=== PATIENT | female | born 1935 | race Caucasian/White ===

== ENCOUNTER 2019-02-11 12:22 | Inpatient (IN) | payer MEDICARE, OTHER ==
[~2019-02-11] VITALS: Ht 154.9 cm; Wt 63.5 kg
[~2019-02-11 12:22] MED LIST: AMARYL2 MG PO; DICYCLOMINE HCL20 MG; HYDROCODON-ACE1 EAC7 PO; LASIX 40 MG TAB40 M2; LISINOPRIL40 MG PO; METFORMIN HCL500 MG; PRAVASTATIN SOD40 MG PO; SYNTHROID100 MC1 PO; XANAX 0.5 MG0.5 MG
[2019-02-11 12:23] VITALS: BP 146/64
[2019-02-11 12:47] LABS: ABSOLUTE BASOPHILS 0.1 thou/uL (0.0-0.2); ABSOLUTE EOSINOPHILS 0.2 thou/uL (0.0-0.7); ABSOLUTE MONOCYTES 0.8 thou/uL (0.0-1.2); BASOPHILS 0.8 %; EOSINOPHILS 1.7 %; HEMATOCRIT 34.7 % (37.0-47.0); HEMOGLOBIN 11.5 gm/dL (12.0-15.0); MCH 28.7 pg (26.0-34.0); MCHC 33.2 g/dL (28.0-37.0); MCV 86.2 fL (80.0-100.0); MPV 8.6 fl. (7.2-11.1); NUCLEATED RBCS 0 /100WBC; PLATELET COUNT* 287 thou/uL (150-400); POLYS 69.5 %; RBC 4.03 mil/uL (4.20-5.00); RDW-CV 14.9 % (10.5-14.5)
[2019-02-11 12:56] LABS: ANION GAP 8 mmol/L (7-16); BUN 24 mg/dL (7-18); CALCIUM 9.4 mg/dL (8.5-10.1); CHLORIDE 98 mmol/L (98-107); CO2 28 mmol/L (21-32); CREATININE 0.9 mg/dL (0.6-1.3); GLUCOSE 167 mg/dL (70-99); POTASSIUM 4.1 mmol/L (3.5-5.1); SODIUM 134 mmol/L (136-145)
[2019-02-11 13:06] LABS: ALBUMIN 3.6 g/dL (3.4-5.0); ALKALINE PHOSPHATASE 80 U/L (46-116); SGOT 18 U/L (15-37); SGPT 20 U/L (30-65); TOTAL BILIRUBIN 0.3 mg/dL (<0.1-1.0); TROPONIN-I LEVEL <0.06 ng/mL (<0.06)
[2019-02-11 15:15] VITALS: BP 147/45
[2019-02-11 15:38] VITALS: BP 147/46
--- NOTE | 2019-02-11 16:35 | NUR ---
PATIENT CAME TO THE FLOOR FROM THE ER VIA CART IN STABLE CONDITION. SLID PATIENT FROM ER CART TO BED. ROOM ORIENTATION AND ADMISSION ASSESSMENT DONE. FAMILY AT BEDSIDE. PATIENT WENT TO CT THEN WAS OING TO GO TO THE OPERATING ROOM FROM CT. TRANSPORTED WITH [employer] EXAMINER AND SURGEON. FAMILY IS WITH PATIENT.
--- NOTE | 2019-02-11 16:42 | EKG ---
[place] [address] ELECTROCARDIOGRAM REPORT Name: NAVDEEP ARVIZU Room: [address] ADM IN .R.#: [id number] Admission: 02/11/19 Attend Phys: Dino Patel Discharge: Date of : 39 Report #: [id number] THIS REPORT FOR: //name// [facility] ED Test Date: 2019-02-11 Test Time: 12:35:40 Pat Name: NAVDEEP ARVIZU Department: Room: [facility] Gender: F Plan Nurse: MS : 1935 Requested By: Ezequiel Mendoza Order Number: [id number] MD: Roni Renae Measurements Intervals [place] Rate: 74 P: 75 MO: 237 QRS: -34 QRSD: 100 T: 111 QT: 437 QTc: 485 Interpretive Statements Sinus rhythm Prolonged MO interval Left axis deviation Abnormal R-wave progression, early transition Probable septal infarct, old Abnormal T, consider ischemia, lateral leads Compared to ECG 12/26/2013 11:07:31 First degree AV block now present Left-axis deviation now present Sinus arrhythmia no longer present Myocardial infarct finding still present Electronically Signed On 02-11-2019 16:42:09 CDT by Roni Renae [email or web address] <ELECTRONICALLY SIGNED> By: Roni Renae MD, [facility] 02/11/19 1642 1235 1235 Roni Renae MD, [facility] /EPI
[2019-02-11 16:58] LABS: PROTIME 10.3 Seconds (9.20-11.50)
--- NOTE | 2019-02-11 17:49 | NUR ---
PATIENT IS STILL OFF THE FLOOR IN THE OR.
[2019-02-11 20:10] VITALS: BP 156/67
--- NOTE | 2019-02-11 22:15 | NUR ---
PT TRANSFERED FROM PACU AT 2009. VITALS STABLE. ON 3L OF OXYGEN BY NC. ON CONTINUOUS SAT MONITOR. FAMILY AT BEDSIDE. WILL CONTINUE TO MONITOR.
[2019-02-12] VITALS: BP 129/62
[2019-02-12 04:10] LABS: HEMATOCRIT 27.3 % (37.0-47.0)
[2019-02-12 04:26] VITALS: BP 142/57
--- NOTE | 2019-02-12 05:36 | NUR ---
PT REMAINED ALERT AND ORIENTED. VITALS STABLE WITH 3L O2 BY NC. PAIN CONTROLLED WITH OXY IR. NAUSEA RESOLVED AFTER IV ZOFRAN GIVEN. DRESSING ON LT HIP CLEAN AND DRY. IV ANTIBIOTIC GIVEN. ICE PACK, JADE IN PLACE. HOURLY ROUNDING COMPLETED. WILL CONTINUE TO MONITOR.
[2019-02-12 07:30] VITALS: BP 138/54
--- NOTE | 2019-02-12 14:21 | NUR ---
SW met with pt and with pt dtr Lisa to complete initial assessment, introduce self, and SW role. Pt was alert, oriented, pleasant. Pt lives at home with . Pt dtr Lisa lives in [place] and pt has another dtr who lives in [place], [place]. Pt dtr explained that pt is also 83 and that "they do okay" but to be determined whether pt will need SNF or inpt rehab at dc. Pt open to the options if needed and also to HH at dc. (Pt does not have hx with HH and pt does but they do not recall the name of the agency.) Pt has RW, cane, BSC, Shower chair and a tub/shower bench. Pt has a ranch style home with just 2 steps to enter and the steps from the garage into the home is where pt fell. Pt dtr aware pt will dc on Eliquis at least for a couple of weeks. SW/CM to continue to follow to assist with safe dc planning.
[2019-02-12 16:30] VITALS: BP 143/54
--- NOTE | 2019-02-12 18:03 | NUR ---
TKO BRACE ORDERED FROM [employer]. WILL BE DELIVERED THURSDAY. THEY WILL CALL THE UNIT TO CONFIRM
--- NOTE | 2019-02-12 19:00 | NUR ---
PATIENT PLEASANT AND COOPERATIVE W/ ASSESS AND CARES. PATIENT STATES FEELING NAUSEOUS THIS AM, SEE MAR. PATIENT DENIES NAUSEA THRU REST OF SHIFT. THERAPIES WORK WITH PATIENT THIS SHIFT. PATIENT C/O PAIN IN LEFT FOOT, NOTED BRUISING, PATIENT/FAMILY STATES WAS NOT PRESENT AT TIME OF FALL, DR NOTIFIED, XRAY ORDER OBTAINED. NOTED BRUISING TO RIGHT HAND, PATIENT STATES 4TH FINGER PAINFUL. FINGER ANGEL TAPED TO LIMIT BENDING. PATIENT STATES THIS HELPS. SEE MAR FOR PAIN CONTROL. PATIENT TRANSFERS USING FWW/GAIT BELT W/ SBA. FAMILY MEMBERS PRESENT IN RM THRU SHIFT. EDUCATED ON POC, INC SPIR, CDB AND MEDICATION CHANGES. PATIENT STATES VERBALLY OF UNDERSTANDING. USING INC SPIR. LT HIP DRSG NOTED WNL, CDI. ~STEVENRXiao
[2019-02-12 20:00] VITALS: BP 143/59
[2019-02-13] VITALS: BP 150/60
[2019-02-13 04:00] VITALS: BP 135/47
--- NOTE | 2019-02-13 04:53 | NUR ---
PATIENT HAS REMAINED ALERT AND ORIENTED X 4 THROUGHOUT THE SHIFT AND RESTING QUIETLY ON HOURLY ROUNDS. Q2H TURNS ENCOURAGED. DRESSING LEFT HIP CLEAN AND DRY. ICE PACK PROVIDED. MEDICATED FOR PAIN Q6H WITH SCHEDULED HYDROCODONE. PATIENT HAS OPTED TO TAKE ONLY 1/2 TAB EACH TIME. ADEQUATE ORAL INTAKE AND URINE OUTPUT. O2 RE-APPLIED AT HS FOR O2 SAT 88-90% ON ROOM AIR. FURTHER CHECKS ON 2L/MIN 93-95%. OTHER VITAL SIGNS STABLE. ORTHO TO REVIEW LEFT FOOT XRAYS IN AM WHICH DOES SHOW THIRD FIFTH METETARSAL FX OF INDETERMINATE AGE. DAUGHTER AT BEDSIDE. CONTINUE TO MONITOR.
[2019-02-13] MEDS ORDERED: AMLODIPINE BESY10 MG PO (06:51)
[2019-02-13] MEDS ORDERED: PROBIOTIC1 EAC1 PO (06:52)
[2019-02-13] MEDS ORDERED: OMEPRAZOLE 20 M20 M1 PO (06:55)
[2019-02-13] MEDS ORDERED: PIOGLITAZONE15 MG PO (06:56)
[2019-02-13] MEDS ORDERED: ATIVAN0.5 MG PO (06:57)
[2019-02-13 07:55] VITALS: BP 124/61
[2019-02-13 17:04] VITALS: BP 116/48
--- NOTE | 2019-02-13 18:44 | NUR ---
PLEASANT AND COOPERATIVE THRU SHIFT. FAMILY MEMBERS PRESENT IN THRU MOST OF SHIFT. SEE MAR FOR MED INTERVENTION. PATIENT TOOK OFF HAND BRACE STATING THAT IT WAS TOO UNCOMFORTABLE, DR IN THIS MORNING FROM ORTHO GROUP, ANGEL TAPED PATIENT FINGERS TOGETHER W/ PATIENT AGREEMENT. BOOT PLACED TO LEFT FOOT. PATIENT INSTRUCTED BY ORTHO DR ON USE OF BOOT. PATIENT STATES VERBALLY OF UNDERSTANDING. USING FWW AND GAIT BELT, SBA W/ TRANSFERS AND AMBULATION. PATIENT NOTED HAVING DIFF W/ LLE. BM TODAY. IV CATH SITE NOTED WNL. CALL LIGHT IN REACH. HRLY ROUNDS COMPLETED. ~TJRN
[2019-02-13 20:00] VITALS: BP 147/50
[2019-02-14] VITALS: BP 172/65
[2019-02-14 02:55] VITALS: BP 157/55
--- NOTE | 2019-02-14 05:20 | NUR ---
PATIENT HAS REMAINED ALERT AND ORIENTED X 4 THROUGHOUT THE SHIFT AND RESTING QUIETLY ON HOURLY ROUNDS. MEDICATED FOR PAIN X 2 TO GOOD EFFECT. DRESSING LEFT HIP CLEAN AND DRY. REFUSED ICE PACK. JAHAIRA PASQUALEE AND SCD'S ON BILAT LE'S. REFUSED SEVERAL Q2H TURNS. DID GET UP OUT OF BED X 2 TO BSC FOR VOIDS. ABLE TO MAKE SMALL ADJUSTMENTS BY SELF. USING GAIT BELT PER PT INSTRUCTION TO ASSIST MOVING LLE FROM SUPINE TO SITTING POSITION. ACROSS BED. MIN ASSIST WITH WALKER, GAIT BELT AND POST-OP SHOE TO L FOOT TO COMMODE. VITAL SIGNS STABLE. CONTINUE TO MONITOR.
[2019-02-14 07:55] VITALS: BP 156/66
[2019-02-14 09:25] LABS: ABSOLUTE BASOPHILS 0.1 thou/uL (0.0-0.2); ABSOLUTE EOSINOPHILS 0.1 thou/uL (0.0-0.7); ABSOLUTE LYMPHOCYTES 1.2 thou/uL (0.8-5.3); ABSOLUTE NEUTROPHILS 7.7 thou/uL (1.6-8.1); BASOPHILS 0.5 %; EOSINOPHILS 0.5 %; HEMATOCRIT 27.7 % (37.0-47.0); HEMOGLOBIN 9.2 gm/dL (12.0-15.0); LYMPHOCYTES 12.5 %; MCH 28.7 pg (26.0-34.0); MCHC 33.2 g/dL (28.0-37.0); MCV 86.6 fL (80.0-100.0); MONOCYTES 9.5 %; MPV 8.8 fl. (7.2-11.1); NUCLEATED RBCS 0 /100WBC; PLATELET COUNT* 252 thou/uL (150-400); RDW-CV 14.5 % (10.5-14.5)
[2019-02-14 10:31] LABS: CALCIUM 9.1 mg/dL (8.5-10.1); POTASSIUM 4.1 mmol/L (3.5-5.1)
--- NOTE | 2019-02-14 14:27 | NUR ---
PATIENT IS ALERT AND ORIENTED TODAY VERY PLEASANT. VITAL SIGNS STABLE ON ROOM AIR. SOME COMPLAINTS OF PAIN THAT IS WELL CONTROLLED WITH ORAL PAIN MEDICATIONS. UP WITH WALKER AND GAIT BELT TO BEDSIDE COMMODE, TOERATING THERAPY WELL. WILL PASS ON REPORT TO NEXT NURSE AND CONTIMUE TO MONITOR.
--- NOTE | 2019-02-14 16:37 | NUR ---
AWAITNG 'S VISIT. DISCUSSED WITH PT.PLAN B. IF DOES NOT FEEL SHE WOULOD BE A GOOD REHAB CADIDATE, SHE WOULD NEED TO GO TO SNF. GAVE HER PAMPHLET OF SNFS IN [place]. SHE WILL LOOK AT IT AND WANTS TO TALK WITH HER FAMILY. TOLD HER SHE COULD POSSIBLY BE DISCHARGED TOMORROW EITHER TO [facility] OR SNF.
--- NOTE | 2019-02-14 18:19 | NUR ---
ASSUMED CARE OF PATIENT AT 1515. PATIENT RESTING IN BED. PATIENT IS UP WITH MINIMAL ASSIST WITH WALKER/GAITBELT FOR TRANSFER. PATIENT HAS HAD COMPLAINTS OF PAIN, TREATED ADEQUATELY WITH HYDROCODONE. PATIENT HAS GOOD APPETITE. PATIENT DENIES ANY NEEDS AT THIS TIME. CALL LIGHT WITHIN REACH. WILL CONTINUE TO MONITOR.
[2019-02-14 19:35] VITALS: BP 170/56
[2019-02-14 21:10] VITALS: BP 138/54
--- NOTE | 2019-02-15 05:35 | NUR ---
PT REMAINED ALERT AND ORIENTED. VITALS STABLE RA. MEDS GIVEN ORDERED. PAIN CONTROLLED WITH 1/2 TAB OF HYDROCODONE PT REQUESTED. NO NAUSEA OR VOMING THIS SHIFT. DRESSING ON LT HIP CLEAN AND DRY. PT UP TO THE COMMODE WITH WALKER AND GAITBELT. HOURLY ROUNDING COMPLETED. WILL CONTINUE TO MONITOR.
[2019-02-15 08:00] VITALS: BP 152/49
[2019-02-15 10:48] VITALS: BP 152/49
--- NOTE | 2019-02-15 14:08 | PATH ---
[address] [address] PATHOLOGY RPT PROCEDURE Name: NAVDEEP ARVIZU Room: [facility] IN .R.#: [id number] Admission: 02/11/19 Date of : 39 Discharge: Report #: [id number] Path Case #: [id number] [facility] Accession Number: [id number] . 01 Material submitted: . femur - LEFT FEMUR BONE REAMINGS. Modifiers: left . 01 Clinical history: . Left convoluted intertrochanteric, subtrochanteric fracture . 02 Diagnosis: Femur bone reamings: - Fragments of benign and viable bone, marrow fat/stroma, skeletal muscle, cartilage and fibrous connective tissue. (MALINDA:pit 02/15/2019) QTP/02/15/2019 . 02 Electronically signed: . Sanjeev Booker MD, Pathologist NPI- [id number] . 01 Gross description: . Received in formalin labeled "Arvizu, Navdeep, femur bone reamings," and additionally labeled on the requisition as, "left convoluted infratrochanteric, subtrochanteric fracture," is a 4.2 x 2.3 x 0.5 cm aggregate of granular, desouza-brown bone fragments. The specimen is submitted representatively in cassette A1, following decalcification. (DAC; 02/14/2019) XDC/XDC . 02 Pathologist provided ICD-10: S72.102A . 02 CPT . 313946, [id number] Specimen Comment: A courtesy copy of this report has been sent to Specimen Comment: [phone], , . Specimen Comment: Report sent to ,DR TAYLOR / DR WALTON Performed at: 01 [facility] [address] [place] [address] [address], [place], [place] [id number] MD Keo Dhaliwal MD Phone: [phone] Performed at: [address] [facility] [address], [place], [place] [id number] MD Sanjeev Booker MD Phone: [phone]
--- NOTE | 2019-02-15 15:16 | NUR ---
NOTIFIED BY [facility] THAT THEY CAN ACCEPT PT.TODAY TO REHAB UNIT. CM NOTIFIED DAV[facility] AND PT. NURSING TO FAX ORDERS AND MED REQ WHEN COMPLETE.
[2019-02-15] MEDS ORDERED: TYLENOL325 MG PO (15:37)
[2019-02-15] MEDS ORDERED: AMBIEN 5 MG TABL5 M1 PO (15:38)
[2019-02-15] MEDS ORDERED: DULCOLAX5 MG PO (15:39)
[2019-02-15] MEDS ORDERED: BENADRYL25 MG PO (15:40)
[2019-02-15] MEDS ORDERED: ELIQUIS2.5 MG PO (15:42)
[2019-02-15] MEDS ORDERED: MELATONIN5 M1 PO (15:44)
[2019-02-15] MEDS ORDERED: MILK OF MA400 MG/5 M PO (15:46)
[2019-02-15] MEDS ORDERED: PHENERGAN 25 MG25 MG PO (15:53)
[2019-02-15] MEDS ORDERED: ONDANSETRON HCL4 M2 PO (15:54)
[2019-02-15] MEDS ORDERED: MAG-AL PLUS SUS30 ML PO (15:59)
--- NOTE | 2019-02-15 18:29 | NUR ---
AM ASSESSMENT AND VITAL SIGNS COMPLETED DOCUMENTED. PT HAS WORKED WITH PT AND OT, AMBULATES WITH A WALKER ANDMIN ASSIST. PAIN HAS BEEN WELL MANAGED WITH ORAL MEDICATIONS. DRESSING TO THE LEFT HIP REMAINS C/D/I. PT HAS BEEN ACCEPTED TO THE INPATIENT REHAB UNIT. PT AND HER BELONGINGS TRANSPORTED TO ROOM 324 AND SHE HAS BEEN DISCHARGED FROM [facility].
--- NOTE | 2019-02-16 12:44 | OP ---
[address] [address] OPERATIVE REPORT Name: NAVDEEP ARVIZU Room: [address] IN M.R.#: [id number] Admission: 02/11/19 Attend Phys: Dino Patel Discharge: 02/15/19 Date of : 39 Report #: [id number] THIS REPORT FOR: //name// CC: Prema Rodriguez DATE OF SERVICE: 02/11/[address] Paulette Membreno dictating an operative report for Dr. Chapito Mckeon. PREOPERATIVE DIAGNOSIS: Left comminuted displaced closed intertrochanteric femur fracture. POSTOPERATIVE DIAGNOSIS: Left comminuted displaced closed intertrochanteric femur fracture. SURGEON: Chapito Mckeon DO TROUBLE LOCATER: Paulette Membreno DO and Ankur Quintanilla DO. PROCEDURE PERFORMED: Open reduction and internal fixation of left hip fracture with long cephalomedullary nail. ANESTHESIA: General and local. ESTIMATED BLOOD LOSS: 250 mL. SPECIMENS REMOVED: Femoral canal reaming sent to pathology. COMPLICATIONS: None. DISPOSITION: Stable to PACU. ORTHOPEDIC IMPLANTS: Angela gamma nail 11 x 340, then 35 and 40 mm distal interlock screws and 90 mm lag screw. INDICATION FOR PROCEDURE: The patient is a pleasant 83-year-old female who unfortunately suffered a ground level fall earlier today, resulting in immediate left hip pain and inability to bear weight on her left lower extremity. She presented to [facility] ED via EMS and imaging revealed a left comminuted displaced closed intertrochanteric femur fracture. We recommended open reduction and internal fixation of her left hip fracture with a long cephalomedullary nail. All the risks, benefits, complications and alternatives of surgery were discussed with the patient and her family and they wished to [place] [address] OPERATIVE REPORT Name: ARVIZUNAVDEEPEDDI ADEN Room: [address]#: [id number] Admission: 02/11/19 Attend Phys: Dino Patel Discharge: 02/15/19 Date of : 39 Report #: [id number] DESCRIPTION OF PROCEDURE: The patient was seen in the preoperative suite. Consent was obtained. One gram of IV Ancef was administered. The operative site was marked and everyone in the preop suite agreed this was the correct site. She was transported to the operative suite and given the benefit of general anesthesia. She was then transferred to a well-padded Drewsey table in the supine position. Her left foot and ankle were wrapped in soft roll and then her left foot was placed in a well-padded Drewsey traction boot and connected to the Drewsey table. Her right lower extremity was then carefully flexed and abducted and placed in a well-padded leg cazares. Attention was then turned to preoperative reduction of her fracture. The left lower extremity was internally rotated and traction was applied. C-arm was utilized to confirm reduction of her fracture on both AP and lateral imaging. The left lower extremity was then prepped and draped in the typical sterile fashion. A timeout was performed to confirm the correct patient, operative site and procedure. Everyone in the operative suite agreed. The greater trochanter and axis of the femur were marked out. A 3 cm incision was then made just proximal to the tip of the greater trochanter over the lateral aspect of the hip through skin and IT band. A guidewire was then utilized to find the starting point at the tip of the greater trochanter that was confirmed by AP and lateral C-arm imaging. A starting awl was then taken down to the level of the lesser trochanter. A ball-tipped guidewire was then passed down through the awl to the level of the knee that was confirmed to be in the femoral canal via C-arm imaging. Once the ball tip guidewire was confirmed to be in appropriate position, the awl was removed and a size 11 reamer on power was then used as a starting reamer. We sequentially reamed up to a 13. Reamings were collected and sent to pathology for further analysis. A starting reamer 15.5 was then taken down to the level of the lesser trochanter. The nail, 11 x 340 was then passed over the ball tip guidewire and assessed to be in correct position by AP and lateral C-arm imaging. Our attention was then turned to lag screw placement. The triple sleeve was placed through the 125 degree lag screw portal and the guide. A 2 cm incision was made through skin and IT band. A new triple sleeve was advanced to bone. A guidewire on power was advanced into the correct position in the femoral head and confirmed with C-arm AP and lateral imaging. Measuring guide was used and a 90 mm lag screw was deemed appropriate. The drill on power was set to 90 mm and drilled over the guidewire. The 90 mm lag screw was then placed using a hand screwdriver and confirmed to be in appropriate position via fluoroscopic imaging, the set screw was then inserted, tightened and loosened a quarter turn. Compression was then achieved with a lag screw sleeve and confirmed by imaging. The triple sleeve and nail guide were then removed. Our attention was then turned to the distal interlocks. The C-arm was utilized to visualize perfect circles. A 2 cm incision was made at the level of the distal interlocks through skin and IT band. A drill on power was used to drill [facility] [address] [place] [address] OPERATIVE REPORT Name: NAVDEEP ARVIZU Room: [address] IN .R.#: [id number] Admission: 02/11/19 Attend Phys: Dino Patel Discharge: 02/15/19 Date of : 39 Report #: [id number] the interlock screw holes, confirmed to be through the nail with C-arm imaging. A depth gauge was used and 35 and 40 mm screws were deemed appropriate for the distal interlocks. The screws were placed on power and finished with a hand screwdriver. AP and lateral fluoroscopic images confirmed the screws to be in the appropriate position and length. Final fluoroscopic images were obtained confirming all the hardware to be in appropriate position and alignment and confirmed no retained orthopedic instruments. The incisions were thoroughly irrigated with sterile water. The IT band was closed with 1-0 Vicryl. Subcutaneous tissues were closed with 2-0 Vicryl and the skin was then stapled. A 30 mL of orthopedic cocktail were injected. Skin was cleaned with wet and dry laps and dressed with Mepilex. All counts were correct x 2. The patient was awoken from general anesthesia and transported to the PACU in stable condition. The patient will be given 2 more doses of IV Ancef 1 gram q.8h. postoperatively. She will receive anticoagulation, both mechanical and pharmacological while admitted. She will be weightbear as tolerated to her left lower extremity. She will continue Eliquis 2.5 mg b.i.d. for 2 weeks and then transition to aspirin 325 mg b.i.d. for 4 weeks. [place] will be removed at 14 days and the patient will follow up with Dr. Mckeon in clinic in 2 weeks. <ELECTRONICALLY SIGNED> By: Leonidas Martines DO 02/16/19 1244 0810 1028Chapito Mckeon DO /kirsten
== END 2019-02-15 17:50 | DRG 481 ==
LOC: M.ERS 12:22 → M.ORTHSURG 14:09 → M.TBA-ER 14:09 → M.ORTHSURG 16:04
PROVIDERS: Emergency Medicine Emergency Medical Services; Orthopaedic Surgery; ADMIT Internal Medicine
PROC: 0QS704Z Reposition Left Upper Femur with Internal Fixation Device, Open Approach (ICD-10-PCS; principal; 2019-02-11)
DX: S72.142A Displaced intertrochanteric fracture of left femur, initial encounter for closed fracture (principal); D62 Acute posthemorrhagic anemia; E11.9 Type 2 diabetes mellitus without complications; I10 Essential (primary) hypertension; S92.352A Displaced fracture of fifth metatarsal bone, left foot, initial encounter for closed fracture; S92.332A Displaced fracture of third metatarsal bone, left foot, initial encounter for closed fracture; S62.645A Nondisplaced fracture of proximal phalanx of left ring finger, initial encounter for closed fracture; I95.9 Hypotension, unspecified; E78.00 Pure hypercholesterolemia, unspecified; E03.9 Hypothyroidism, unspecified; W18.39XA Other fall on same level, initial encounter; Y93.01 Activity, walking, marching and hiking; Y92.59 Other trade areas as the place of occurrence of the external cause; Y99.8 Other external cause status; Z90.49 Acquired absence of other specified parts of digestive tract; Z88.1 Allergy status to other antibiotic agents; Z88.8 Allergy status to other drugs, medicaments and biological substances

== ENCOUNTER 2019-02-15 16:01 | Inpatient (IN) | payer MEDICARE, OTHER ==
[~2019-02-15] VITALS: Ht 154.9 cm; Wt 59.9 kg
[~2019-02-15 16:01] MED LIST changes: +AMBIEN 5 MG TABL5 M1 PO; +AMLODIPINE BESY10 MG PO; +ATIVAN0.5 MG PO; +BENADRYL25 MG PO; +DULCOLAX5 MG PO; +ELIQUIS2.5 MG PO; +MAG-AL PLUS SUS30 ML PO; +MELATONIN5 M1 PO; +MILK OF MA400 MG/5 M PO; +OMEPRAZOLE 20 M20 M1 PO; +ONDANSETRON HCL4 M2 PO; +PHENERGAN 25 MG25 MG PO; +PIOGLITAZONE15 MG PO; +PROBIOTIC1 EAC1 PO; +TYLENOL325 MG PO
[2019-02-15 19:00] VITALS: BP 151/59
[2019-02-15 20:00] VITALS: BP 151/59
--- NOTE | 2019-02-16 05:09 | NUR ---
ASSUMED PT CARE AT 1930. PT ALERT AND ORIENTED X4, POLITE AND COOPERATIVE WITH CARES. ADMISSION DATABASES AND PAPERWORK COMPLETED. UP TO BATHROOM WITH SBA, GAIT BELT AND WALKER. PT WEARS ORTHO SHOE TO LEFT FOOT WHEN AMBULATING. STOOL X2 THIS SHIFT. DRESSING TO LEFT HIP C/D/I. TEGADERM TO SKIN TEAR ON LEFT HAND INTACT. PAIN MEDICATION ONCE THIS SHIFT. USES CALL LIGHT APPROPRIATELY. HOURLY ROUNDING IN PROGRESS, WILL CONTINUE TO MONITOR.
[2019-02-16 05:39] LABS: HEMOGLOBIN 8.6 gm/dL (12.0-15.0); MCH 29.5 pg (26.0-34.0); MCHC 34.3 g/dL (28.0-37.0); MPV 9.1 fl. (7.2-11.1); RBC 2.9 mil/uL (4.20-5.00); RDW-CV 14.4 % (10.5-14.5); WBC 9.4 thou/uL (4.0-11.0)
[2019-02-16 06:09] LABS: CREATININE 0.8 mg/dL (0.6-1.3); POTASSIUM 4.3 mmol/L (3.5-5.1)
[2019-02-16 09:05] VITALS: BP 144/72
--- NOTE | 2019-02-16 12:59 | NUR ---
Nutrition: Pt admitted to rehab with Lt hip FX. Wt: 131#. Eating regular diet well. H/o DM, HTN. BG is elevated 251. Albumin 3.6. RX: metformin, glimeperide. GOAL: better BG control. RD will restrict diet to CHO controlled. Will follow weekly.
--- NOTE | 2019-02-16 13:33 | NUR ---
PATIENT UP WITH ASSIST. AMBULATES WITH ROLLING WALKER. DENIES COMPLAINTS OR PAIN OR DISCOMFORT. CONT. WITH PLAN OF CARE.
--- NOTE | 2019-02-16 16:22 | NUR ---
SW completed initial assessment on inpt rehab unit. Pt alert, oriented, pleasant. Pt known to SW from pt stay on acute care. Pt lives at home with . Pt has supportive dtrs. Pt has RW, sangeethae, BSC, shower chair, shower tub bench. Pt lives in a ranch style home with 2 steps to enter. Pt might be on Eliquis at dc. SW to continue to follow to assist with safe dc planning. SW and Dr Maxwell met with pt to review team conference summary and plan to reteam. Pt in agreement with plan.
--- NOTE | 2019-02-16 18:46 | NUR ---
PATIENT IS ALERT AND ORIENTED X 4, UP WITH MODERATE TO LIMITED ASSISTANCE. USES ROLLING WALKER. PATIENT PARTICIPATING IN THERAPIES. SHE AMBULATES TO/FROM THE DINNING AREA. CONT. WITH CURRENT PLAN OF CARE.
--- NOTE | 2019-02-17 05:27 | NUR ---
ASSUMED PT CARE AT 1930. PT ALERT AND ORIENTED X4, POLITE AND COOPERATIVE WITH CARES. PT UP TO BATHROOM SEVERAL TIMES OVERNIGHT TO VOID WITH SBA, GAIT BELT, WALKER AND ORTHO SHOE TO LEFT FOOT. PT CONTINUES TO NEED ASSIST WITH GETTING LEFT LEG IN AND OUT OF BED. NO STOOL THIS SHIFT. DRESSING TO LEFT HIP C/D/I. PT C/O PAIN TO LEFT HIP, PAIN MEDICATION TWICE THIS SHIFT. USES CALL LIGHT APPROPRIATELY. CALL LIGHT AND FREQUENTLY USED ITEMS WITHIN REACH. BED ALARM ON FOR SAFETY. HOURLY ROUNDING IN PROGRESS, WILL CONTINUE TO MONITOR.
[2019-02-17 08:04] VITALS: BP 112/52
--- NOTE | 2019-02-17 10:16 | NUR ---
PATIENT ALERT AND ORIENTED X 4, UP WITH SBA. DENIES PAIN AT THIS TIME. PAIN MEDS GIVEN PRIOR TO THIS SHIFT. WILL REASSES. CONT. WITH CURRENT PLAN OF CARE.
[2019-02-17 20:10] VITALS: BP 141/48
--- NOTE | 2019-02-17 20:10 | NUR ---
SITTING UP IN CHAIR WATCHING TV. AMBULATED TO THE BATHROOM WITH SBA, GAITBELT, WALKER, POST OP SHOE ON LEFT FOOT. DOES OWN HYGIENE AND CLOTHING ADJUSTMENTS. NEEDED MINIMAL ASSIST WITH LIFTING LEFT LEG INTO BED. LEFT HIP DRESSING DRY/INTACT. TYLENOL GIVEN PER REQUEST FOR COMPLAINT OF LEFT LEG PAIN RATED "4". CALL LIGHT WITHIN REACH.
--- NOTE | 2019-02-18 05:28 | NUR ---
UP AT 0130 TO THE BATHROOM TO VOID. TYLENOL GIVEN AT 0138 PER REQUEST FOR COMPLAINT OF LEFT HIP PAIN RATED "4" WITH GOOD RESULTS. CURRENTLY SLEEPING SOUNDLY AND SNORING LOUDLY. HOURLY ROUNDING IN PROGRESS.
[2019-02-18 08:29] VITALS: BP 135/49
[2019-02-18 10:35] VITALS: BP 130/54
[2019-02-18 15:30] VITALS: BP 146/47
--- NOTE | 2019-02-18 18:24 | NUR ---
ASSUMED CARE AT 0730. ALERT ORIENTED PLEASANT COOPERATIVE. HX OF L HIP FX WBAT LLE WEARS POST OP SHOE WITH AMBULATION. MEDICATED X 1 WITH TYLENOL 2 TABS PO L HIP PAIN.. PARTICIPATING IN THERAPIES THROUGHOUT THE DAY. STATES SOME DIZZINESS LAST 2 DAYS SOME TIMES WITH MOVEMENT AND SOMETIMES WITH SITTING STILL GAVE LISINOPRIL THIS A.M. BUT HELD NORVASC SEE GRAPHICS. DR. MALHOTRA AWARE AND OKAY WITH HOLDING MED TODAY. MOVED TO 330 THIS AFTERNOON WITH ALL BELONGINGS. FEEDS SELF TAKES MEDS WITHOUT DIFFICULTY.
[2019-02-18 21:14] VITALS: BP 146/53
--- NOTE | 2019-02-19 00:01 | NUR ---
ASSUMED CARE AT 1930. PATIENT RESTING IN RECLINER UNTIL AROUND 2099. UP WITH SBA, GAIT BELT, WALKER. WEARS POST OP SHOE TO LT FOOT WHILE AMBULATING. VOIDS PER TOILET. TAKES PILLS WITH WATER. NO C/O PAIN. LT HIP DRESSING C/D/I. TURNS SELF. HOURLY ROUNDS CONTINUE. BED ALARL ON. CALL LITE IN REACH.
--- NOTE | 2019-02-19 05:04 | NUR ---
SLEPT MOST OF THE NIGHT. VOIDED PER TOILET. UP WITH SBA, GAIT BELT AND WALKER. MEDICATED FOR PAIN ONCE, SEE MAR. TURNS SELF. HOURLY ROUNDS CONTINUE. BED ALARM ON. CALL LITE IN REACH.
[2019-02-19 05:57] VITALS: BP 158/48
--- NOTE | 2019-02-19 06:10 | NUR ---
ALTHOUGH PATIENT WAS RESTING QUIETLY IN BED, SHE C/O THAT SHE WAS SHAKY. BLOOD PRESSURE CHECKED, SEE INTERVENTION, BLOOD SUGAR CHECKED, WNL. STATES AT HOME SHE TAKES SOMETHING STARTING WITH AN "L" AND AFFIRMED THAT IT WAS LORAZEPAM. THIS GIVEN PER ORDER, SEE MAR. RETURNED TO SEMIFOWLER'S POSITIONS.
[2019-02-19 07:30] VITALS: BP 114/42
--- NOTE | 2019-02-19 16:32 | NUR ---
PATIENT WORKING WITH THERAPY THIS SHIFT. UP WITH SBA AND GAIT BELT WITH WALKER. C/O HIP PAIN THIS EVENING, PRN FLEXERIL GIVEN ORDERED. PATIENT NOTED TO BE RESTING WITH EYES CLOSED IN BED AFTER GIVEN. ORAL AGENTS GIVEN ORDERED FOR BLOOD GLUCOSE.
[2019-02-19 20:00] VITALS: BP 114/41
--- NOTE | 2019-02-20 05:34 | NUR ---
ASSUMED PT CARE AT 1930. PT SITTING UP IN RECLINER WATCHING TELEVISION UNTIL 2099. PT UP WITH SBA, GAIT BELT AND WALKER TO BATHROOM TO VOID. PT WEARS POST OP SHOE ON LEFT FOOT WHEN AMBULATING. TAKES PILLS WHOLE WITH WATER WITHOUT DIFFICULTY. DENIES PAIN. DRESSING TO LT HIP C/D/I. PT TURNS SELF IN BED. PT SLEPT WELL OVERNIGHT. BED ALARM ON FOR SAFETY. CALL LIGHT AND FREQUENTLY USED ITEMS WITHIN REACH. HOURLY ROUNDING IN PROGRESS, WILL CONTINUE TO MONITOR.
[2019-02-20 07:38] LABS: CALCIUM 8.8 mg/dL (8.5-10.1); CREATININE 0.8 mg/dL (0.6-1.3); MAGNESIUM 1.4 mg/dL (1.8-2.4); POTASSIUM 4.2 mmol/L (3.5-5.1)
[2019-02-20 07:40] VITALS: BP 129/40
--- NOTE | 2019-02-20 16:20 | NUR ---
PATIENT UP IN ROOM WITH SBA AND TO DINING DURBIN FOR MEALS. UP WITH SBA AND USE OF GAIT BELT AND WALKER. BM NOTED TODAY. NO COMPLAINTS OF PAIN. FAMILY HERE VISITING THIS AFTERNOON. MG REPLACED PER PROTOCOL FOR VALUE OF 1.4, REDRAW AT 1900.
[2019-02-20 20:00] VITALS: BP 133/52
--- NOTE | 2019-02-21 05:11 | NUR ---
ASSUMED PT CARE AT 1930. PT ALERT AND ORIENTED X4, POLITE AND COOPERATIVE WITH CARES. SITTING UP IN RECLINER WATCHING TELEVISION. UP WITH SBA, GAIT BELT, WALKER AND POST OP SHOE TO BATHROOM TO VOID. DENIES PAIN. DRESSING TO LEFT HIP C/D/I. PT TURNS SELF IN BED. SLEPT WELL OVERNIGHT. BED ALARM ON FOR SAFETY. CALL LIGHT AND FREQUENTLY USED ITEMS WITHIN REACH. HOURLY ROUNDING IN PROGRES, WILL CONTINUE TO MONITOR.
[2019-02-21 08:32] VITALS: BP 145/48
--- NOTE | 2019-02-21 14:56 | NUR ---
ASSUMED CARE AT 0730. ALERT ORIENTED PLEASANT COOPERATIVE. HX OF L HIP FX. WBATLLE. TRANSFERS WITH SBA G BELT WALKER.
--- NOTE | 2019-02-21 15:07 | NUR ---
PARTICIPATING IN THERAPIES THROUGHOUT THE DAY. APPETITE GOOD FEEDS SELF TAKES MEDS WITHOUT DIFFICULTY. UP IN RECLINER WHEN NOT IN THERAPIES.
[2019-02-21 20:12] VITALS: BP 127/39
--- NOTE | 2019-02-22 05:27 | NUR ---
ASSUMED PT CARE AT 1930. PT ALERT AND ORIENTED X4, POLITE AND COOPERATIVE WITH CARES. PT UP WITH SBA, GAIT BELT, WALKER, AND ORTHO SHOE TO LEFT FOOT. UP ONCE TO BATHROOM TO VOID. PT ABLE TO LIFT BOTH LEGS INTO BED UNASSISTED. TYLENOL AT HS FOR RIGHT HIP PAIN RATED 3/10. PT SLEPT WELL OVERNIGHT. USES CALL LIGHT APPROPRIATELY. BED ALARM ON FOR SAFETY. HOURLY ROUNDING IN PROGRESS, WILL CONTINUE TO MONITOR.
[2019-02-22 08:30] VITALS: BP 142/48
--- NOTE | 2019-02-22 14:42 | NUR ---
ASSUMED CARE AT 0730. ALERT ORIENTED PLEASANT COOPERATIVE. HX OF L HIP FX WBATLLE DRESSING C/D/I. AMBULATES TO BR TO VOID ABLE TO DO HYGEINE AND CLOTHING ADJUSTMENTS. FEEDSS SELF TAKES MEDS WITHOUT DIFFICULTY. PARTICIPATING IN THERAPIES. SITTING IN RECLINER AT BEDSIDE WHEN NOT IN THERAPIES. USES CALL LIGHT APPROPRIATELY FOR ASSIST.
[2019-02-22 19:00] VITALS: BP 107/37
--- NOTE | 2019-02-22 20:30 | NUR ---
SITTING UP IN RECLINER WATCHING TV. HAS POST OP SHOE ON LEFT FOOT. 2+ LEFT ANKLE EDEMA NOTED. TYLENOL GIVEN PER REQUEST FOR COMPLAINT OF LEFT HIP PAIN RATED "3". AMBULATED TO THE BATHROOM WITH SBA, GAITBELT, WALKER. HAD A MODERATE BM. DID OWN HYGIENE AND CLOTHING ADJUSTMENTS.
--- NOTE | 2019-02-23 06:05 | NUR ---
UP X ONE DURING THE NIGHT TO THE BATHROOM TO VOID. NO FURTHER COMPLAINT OF PAIN. HOURLY ROUNDING IN PROGRESS.
[2019-02-23 08:00] VITALS: BP 137/60
[2019-02-23 09:00] VITALS: BP 137/60
--- NOTE | 2019-02-23 15:48 | NUR ---
AM ASSESSMENT AND VITAL SIGNS COMPLETED DOCUMENTED. PT HAS PARTICIPATED IN ALL THERAPIES, DENIES NEED FOR PAIN MEDICATION. PT HAS BEEN COMPLIANT WITH WEARING THE POST OP SHOE WHEN OUT OF BED. FALL PRECAUTIONS AND HOURLY ROUNDING CONTINUE.
--- NOTE | 2019-02-23 16:00 | NUR ---
HAVEN and Dr Maxwell met with pt and pt dtr to review team conference summary and plan for pt to dc home on Thursday however the pt was very upset by this and determination was made that pt would be able to dc on Thursday instead after a couple more days of therapy to ensure pt readiness to dc home safely. Pt still said she wished she could dc today or tomorrow but agreed to Thursday at this time. Pt has needed DME. HAVEN to discuss with pt HH choices and arrange for dc.
[2019-02-23 20:55] VITALS: BP 129/51
--- NOTE | 2019-02-24 04:30 | NUR ---
RESTED WELL THROUGOUT HOURLY ROUNDS UP TO BATHROOM X 2 WITH WALKER GAIT STAEADY WITH WALKER DEIES PAIN WHEN UP . NO CHANGES IN PT ASSESSMENT WILL CONINTUE WITH CURRENT PLAN OF CARE AND REPORT CHANGES OR ABNORMAL FINDINGS.
[2019-02-24 08:00] VITALS: BP 135/55
--- NOTE | 2019-02-24 15:12 | NUR ---
SW met with pt to discuss dc planning for tomorrow and HH services to follow. SW provided options and pt was not sure of her preference yet but would provide choice to SW tomorrow prior to pt dc. SW reviewed IMM and pt signed, copy in pt chart. Pt has needed DME already. Pt in agreement with plan and ready to dc tomorrow. SW to continue to follow to arrange HH according to pt preference and assist with finalizing safe dc plan. Pt to dc home with tomorrow.
--- NOTE | 2019-02-24 18:07 | NUR ---
AM ASSESSMENT AND VITAL SIGNS COMPLETED DOCUMENTED. PT IS NOW MOD I IN HER ROOM. PT WILL BE DISCHARGED THURSDAY.
--- NOTE | 2019-02-24 19:30 | NUR ---
SITTING UP IN RECLINER WATCHING TV. SITTING IN CHAIR NEXT TO PATIENT. DENIES DISCOMFORT. MODIFIED INDEPENDENTIN ROOM WITH A WALKER. WEARS A POST-OP SHOE ON LEFT FOOT.
[2019-02-24 20:18] VITALS: BP 110/41; BP 82/41
--- NOTE | 2019-02-25 05:30 | NUR ---
UP X ONE DURING THE NIGHT TO THE BATHROOM. NO COMPLAINTS VOICED. GAVE TYLENOL PER REQUEST AT 2220 FOR COMPLAINT OF GENERALIZED SORENESS WITH RELIEF. HOURLY ROUNDING IN PROGRESS. PATIENT TO GO HOME TO DAY.
[2019-02-25 05:37] LABS: HEMATOCRIT 26.3 % (37.0-47.0); HEMOGLOBIN 8.5 gm/dL (12.0-15.0); MCH 28.4 pg (26.0-34.0); MCHC 32.5 g/dL (28.0-37.0); MCV 87.3 fL (80.0-100.0); MPV 8.6 fl. (7.2-11.1); RBC 3.01 mil/uL (4.20-5.00); RDW-CV 15.3 % (10.5-14.5); WBC 7.6 thou/uL (4.0-11.0)
[2019-02-25 05:45] LABS: CALCIUM 9.2 mg/dL (8.5-10.1); MAGNESIUM 1.6 mg/dL (1.8-2.4); POTASSIUM 4.3 mmol/L (3.5-5.1)
[2019-02-25 08:17] VITALS: BP 109/59
[2019-02-25 13:02] VITALS: BP 109/59
[2019-02-25 14:29] VITALS: BP 109/59
[2019-02-25 14:34] VITALS: BP 109/59
--- NOTE | 2019-02-25 14:40 | NUR ---
HAVEN met with pt and pt family to finalize safe dc plan for today for pt to dc home with and HH services to follow. Pt/family preference for [facility]; HAVEN faxed referral, orders, med list. [phone] fax [phone].
--- NOTE | 2019-02-25 15:03 | NUR ---
PATIENT DISCHARGED HOME. AND DTR PRESENT. REVIEW OF MEDICATIONS, INSTRUCTIONS ON FOLLOW WITH PCP. WHEELED OUT IN WHEELCHAIR AND TRANSFERRED TO FAMILY CARE WITHOUT INCIDENT.
== END 2019-02-25 15:05 | disposition home health service (06) | DRG 536 ==
LOC: M.REH 16:01
PROVIDERS: Internal Medicine; ADMIT Physical Medicine & Rehabilitation
DX: S72.142A Displaced intertrochanteric fracture of left femur, initial encounter for closed fracture (principal); E11.9 Type 2 diabetes mellitus without complications; I10 Essential (primary) hypertension; E78.00 Pure hypercholesterolemia, unspecified; E03.9 Hypothyroidism, unspecified; F17.210 Nicotine dependence, cigarettes, uncomplicated; S92.332A Displaced fracture of third metatarsal bone, left foot, initial encounter for closed fracture; S92.344A Nondisplaced fracture of fourth metatarsal bone, right foot, initial encounter for closed fracture; E83.42 Hypomagnesemia; X58.XXXA Exposure to other specified factors, initial encounter; Y93.89 Activity, other specified; Y92.89 Other specified places as the place of occurrence of the external cause; Y99.8 Other external cause status; Z90.49 Acquired absence of other specified parts of digestive tract; Z88.1 Allergy status to other antibiotic agents; Z88.8 Allergy status to other drugs, medicaments and biological substances; Z79.899 Other long term (current) drug therapy; Z79.84 Long term (current) use of oral hypoglycemic drugs

== ENCOUNTER → 2019-09-05 | Outpatient (CLI) | payer MEDICARE, OTHER | LOC: M.MRI 12:55 | DX: M41.86 Other forms of scoliosis, lumbar region (principal); K57.30 Diverticulosis of large intestine without perforation or abscess without bleeding; M51.34 Other intervertebral disc degeneration, thoracic region; M51.24 Other intervertebral disc displacement, thoracic region; M51.35 Other intervertebral disc degeneration, thoracolumbar region; M51.16 Intervertebral disc disorders with radiculopathy, lumbar region; M25.78 Osteophyte, vertebrae; M48.061 Spinal stenosis, lumbar region without neurogenic claudication ==

== ENCOUNTER 2021-04-02 04:26 | Inpatient (IN) | payer MEDICARE, OTHER ==
[~2021-04-02] VITALS: Ht 154.9 cm; Wt 60.8 kg
--- NOTE | ~2021-04-02 | CON ---
[address] [address] CONSULTATION Name: NAVDEEP ARVIZU Room: [address] IN M.R.#: [id number] Admission: 04/02/21 Attend Phys: Lisa Castellanos MD Discharge: Date of : 39 Report #: [id number] THIS REPORT FOR: cc: Prema Kirkpatrick MD, Sarah Beth MD Khosla,Jhon Rush MD ~ DATE OF CONSULTATION: 04/02/2021 HISTORY OF PRESENT ILLNESS: This is an 85-year-old female patient who was evaluated by me for right-sided weakness as well as speech difficulty. This happened in relation to hypoglycemia. After hypoglycemia was corrected, her symptoms have resolved. She still has some weakness in the leg, but that is also improving. She describes those as more of being wobbly. REVIEW OF SYSTEMS: Positive for hypoglycemia, which occurred because of hypoglycemic agent as I understand. She never had this kind of symptoms before. Her PT, OT evaluation is pending. She does have a pacemaker. She will follow up with Dr. Martinez at [facility]. Her risk factor is smoking. She does take baby aspirin daily, but she does not take any stronger blood thinner. She underwent an echocardiogram which demonstrated aortic stenosis and regurgitation, etc., but no evidence of PFO. That was a relevant 14-point review of systems. She does not know if pacemaker is compatible with MRI or not. PAST MEDICAL HISTORY: Negative for any stroke-like symptoms. She had hyponatremia and she felt the same way in the past when hyponatremia occurred. FAMILY HISTORY: Negative for early age stroke. SOCIAL HISTORY: She says she smokes. PHYSICAL EXAMINATION: Indicates she is alert and responsive. Her speech, concentration, fund of knowledge and memory is at her baseline. Cranial nerve examination 2-12 looks unremarkable. Strength, sensation, reflexes and tone looks symmetrical. Pulses appeared to be palpable. There is no carotid bruit, but she has a murmur in the heart. She has a pacemaker there. I could not look at the patient's fundus. She is moderately built individual. Blood pressure is 151/54, respirations 16, pulse is 72, temperature is 97.9. He does not have any thyroid mass, but there is some thyroid abnormality in this patient's CT angiogram. No respiratory difficulty is noticed. Her sodium is low and it is becoming better. IMPRESSION: Transient ischemic attack like symptoms, which is most likely because of hypoglycemia, hyponatremia may have contributed to that. She is already on aspirin and lipid profile is pending and I ordered TSH and vitamin [address] [place] [address] CONSULTATION Name: NAVDEEP ARVIZU Room: [address] IN .R.#: [id number] Admission: 04/02/21 Attend Phys: Lisa Castellanos MD Discharge: Date of : 39 Report #: [id number] B12 level. I will suggest checking that. She does not know if the pacemaker is compatible with MRI or not and even if it is compatible it will takes some time to set that up if you want to do it. I discussed the options with her. I think it will be okay to let her go home and get those things done as an outpatient if she is able to do reasonably well with physical therapy tomorrow. Please call if further followup is needed. Thank you very much for this referral. By: 1959 [id number] Powell MD /nt
[2021-04-02 04:28] VITALS: BP 169/60
[2021-04-02] MEDS ORDERED: ASA81BEC PO (04:44)
[2021-04-02] MEDS ORDERED: AMLODIPINE BESY10 MG PO (04:44)
[2021-04-02] MEDS ORDERED: LIPITOR 20 MG T20 M1 PO (04:45)
[2021-04-02] MEDS ORDERED: DIFLUCAN150 M1 PO (04:45)
[2021-04-02] MEDS ORDERED: LASIX 40 MG TAB40 MG PO (04:46)
[2021-04-02] MEDS ORDERED: FLONASE 0.05%50 MCG NARES (04:46)
[2021-04-02] MEDS ORDERED: NEURONTIN 300M300 M2 PO (04:47)
[2021-04-02] MEDS ORDERED: AMARYL2 M1 PO (04:47)
[2021-04-02] MEDS ORDERED: HYDRALAZINE 2525 MG PO (04:48)
[2021-04-02] MEDS ORDERED: LISINOPRIL20 MG PO (04:49)
[2021-04-02] MEDS ORDERED: LEVO-T100 MCG PO (04:49)
[2021-04-02] MEDS ORDERED: LORAZEPAM 0.50.5 MG PO (04:50)
[2021-04-02] MEDS ORDERED: METFORMIN HCL500 M3 PO (04:50)
[2021-04-02] MEDS ORDERED: OMEPRAZOLE 20 M20 M1 PO (04:52)
[2021-04-02] MEDS ORDERED: ONDANSETRON ODT4 MG PO (04:53)
[2021-04-02] MEDS ORDERED: PIOGLITAZONE15 MG (04:54)
[2021-04-02] MEDS ORDERED: PROBIOTIC1 EAC7 PO (04:54)
[2021-04-02 04:55] LABS: ABSOLUTE LYMPHOCYTES 0.8 thou/uL (0.8-5.3); ABSOLUTE MONOCYTES 1.1 thou/uL (0.0-1.2); ABSOLUTE NEUTROPHILS 5.2 thou/uL (1.6-8.1); BASOPHILS 0.7 %; EOSINOPHILS 0.1 %; HEMATOCRIT 31.5 % (37.0-47.0); HEMOGLOBIN 10.8 gm/dL (12.0-15.0); LYMPHOCYTES 10.8 %; MCH 30.2 pg (26.0-34.0); MCHC 34.3 g/dL (28.0-37.0); MCV 88.1 fL (80.0-100.0); MONOCYTES 15.2 %; NUCLEATED RBCS 0 /100WBC; PLATELET COUNT* 232 thou/uL (150-400); POLYS 73.2 %; RBC 3.57 mil/uL (4.20-5.00); RDW-CV 13.1 % (10.5-14.5); WBC 7.2 thou/uL (4.0-11.0)
[2021-04-02] MEDS ORDERED: ULTRAM 50MG TAB50 MG PO (04:55)
[2021-04-02] MEDS ORDERED: TRIAMCINOLONE A80 G2 TOP (04:56)
[2021-04-02 05:03] LABS: CALCIUM 8.4 mg/dL (8.5-10.1); CREATININE 0.9 mg/dL (0.6-1.3); POTASSIUM 3.9 mmol/L (3.5-5.1)
[2021-04-02 05:13] LABS: ALBUMIN 3.5 g/dL (3.4-5.0); MAGNESIUM 1.6 mg/dL (1.8-2.4); TOTAL BILIRUBIN 0.2 mg/dL (<0.1-1.0); TOTAL PROTEIN 7.7 g/dL (6.4-8.2)
[2021-04-02 05:31] LABS: URINE BILIRUBIN NEGATIVE (Negative); URINE BLOOD NEGATIVE (Negative); URINE CLARITY CLEAR; URINE COLOR YELLOW; URINE GLUCOSE-RANDOM NEGATIVE (Negative); URINE KETONES NEGATIVE (Negative); URINE LEUKOCYTES-REFLEX NEGATIVE (Negative); URINE NITRITE-REFLEX NEGATIVE (Negative); URINE PROTEIN NEGATIVE (Negative); URINE UROBILINOGEN 0.2 E.U./dl (0.2-1.0)
[2021-04-02 12:00] VITALS: BP 137/95
[2021-04-02 12:55] LABS: ALBUMIN 3.1 g/dL (3.4-5.0); CALCIUM 7.8 mg/dL (8.5-10.1); CREATININE 0.8 mg/dL (0.6-1.3); POTASSIUM 4.1 mmol/L (3.5-5.1); TOTAL BILIRUBIN 0.2 mg/dL (<0.1-1.0); TOTAL PROTEIN 6.9 g/dL (6.4-8.2)
--- NOTE | 2021-04-02 15:40 | EKG ---
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[place] : 1935 Requested By: Sharmila Sanchez Order Number: [id number] MD: Roderick Bernal Measurements Intervals [place] Rate: 74 P: 86 WA: 155 QRS: -39 QRSD: 151 T: 102 QT: 433 QTc: 481 Interpretive Statements A-V dual-paced rhythm No further analysis attempted due to paced rhythm Compared to ECG 02/11/2019 12:35:40 Sinus rhythm no longer present First degree AV block no longer present Left-axis deviation no longer present Myocardial infarct finding no longer present T-wave abnormality no longer present Possible ischemia no longer present Electronically Signed On 04-02-2021 15:40:03 CDT by Roderick Bernal [email or web address] <ELECTRONICALLY SIGNED> By: Roderick Bernal MD, [facility] 04/02/21 1540 0430 Roderick Bernal MD, [facility] /EPI
[2021-04-02 16:02] VITALS: BP 147/49
--- NOTE | 2021-04-02 16:54 | 2DMMODE ---
[place] [address] 2 D/M-MODE ECHOCARDIOGRAM Name: NAVDEEP ARVIZU Room: [place] [address] ADM IN [facility]#: [id number] Admission: 04/02/21 Attend Phys: Lisa Castellanos, Discharge: Date of : 39 Date of Service: 04/02/21 1653 Report #: [id number] THIS REPORT FOR: cc: Prema Kirkpatrick MD, Sarah Beth MD [place], Michael J. MD [facility] ~ APPROVED REPORT Study performed: 04/02/2021 13:53:17 EXAM: Comprehensive 2D, Doppler, and color-flow Echocardiogram Patient Location: In-Patient Room #: er Status: routine BSA: 1.67 HR: 64 bpm BP: 137/95 mmHg Rhythm: NSR Other Information Study Quality: Good Indications CVA/TIA Echo Enhancing Agent Indication: Rule out Shunt Agent(s) / Amount(s) Used: Agitated Saline 10 cc 2D Dimensions IVSd: 10.83 (7-11mm) LVOT Diam: 19.97 (18-24mm) LVDd: 49.88 mm PWd: 9.69 (7-11mm) Ascending Ao: 29.73 (22-36mm) LVDs: 28.45 (25-40mm) Aortic Root: 29.58 mm Volumes Left Atrial Volume (Systole) LA ESV Index: 36.10 mL/m2 Aortic Valve AoV Peak Jean Marie.: 2.92 m/s AO Peak Gr.: 34.06 mmHg LVOT Max P.19 mmHg AO Mean Gr.: 21.23 mmHg LVOT Mean P.43 [place] [address] 2 D/M-MODE ECHOCARDIOGRAM Name: NAVDEEP ARVIZURICE Room: [address] IN ..#: [id number] Admission: 04/02/21 Attend Phys: Lisa Castellanos, Discharge: Date of : 39 Date of Service: 04/02/21 1653 Report #: [id number] LVOT Max V: 1.02 m/s AO V2 VTI: 66.47 cm LVOT Mean V: 0.73 m/s JAG (VTI): 1.09 cm2 LVOT V1 VTI: 23.07 cm Mitral Valve E/A Ratio: 1.04 MV Decel. Time: 163.68 ms MV E Max Jean Marie.: 1.13 m/s MV PHT: 47.47 ms MVA (PHT): 4.63 cm2 TDI E/Lateral E': 12.56 E/Medial E': 12.56 Medial E' Jean Marie.: 0.09 m/s Lateral E' Jean Marie.: 0.09 m/s Pulmonary Valve PV Peak Jean Marie.: 1.27 m/s PV Peak Gr.: 6.46 mmHg Tricuspid Valve RAP Estimate: 5.00 mmHg TR Peak Gr.: 34.27 mmHg RVSP: 39.00 mmHg PA Pressure: 39.00 mmHg Left Ventricle The left ventricle is normal size. There is left ventricular systolic dyssynergy consistent with underlying bundle branch block. There is normal left ventricular wall thickness. Left ventricular systolic function is normal. LVEF is 55-60%. Transmitral Doppler flow pattern suggests impaired LV relaxation. Right Ventricle The right ventricle is normal size. The right ventricular systolic function is normal. Pacemaker lead is present in the right ventricle. Atria Left atrium is mildly dilated. The interatrial septum is intact with no evidence for an atrial septal defect. The right atrium size is normal. Aortic Valve Moderate aortic valve sclerosis. Mild aortic regurgitation. Moderate aortic stenosis. Mitral Valve There is mitral annular calcification. [place] [address] 2 D/M-MODE ECHOCARDIOGRAM Name: NAVDEEP ARVIZU Room: [address] IN .R.#: [id number] Admission: 04/02/21 Attend Phys: Lisa Castellanos, Discharge: Date of : 39 Date of Service: 04/02/21 1653 Report #: [id number] evidence of mitral valve stenosis. Tricuspid Valve The tricuspid valve is normal in structure. Mild tricuspid regurgitation. Mild pulmonary hypertension. The RVSP is 40-45 mmHg. Pulmonic Valve The pulmonary valve is normal in structure. There is no pulmonic valvular regurgitation. Great Vessels The aortic root is normal in size. IVC is normal in size and collapses >50% with inspiration. Pericardium There is no pericardial effusion. <Conclusion> The left ventricle is normal size. There is normal left ventricular wall thickness. Left ventricular systolic function is normal. LVEF is 55-60%. Transmitral Doppler flow pattern suggests impaired LV relaxation. There is left ventricular systolic dyssynergy consistent with underlying bundle branch block. Pacemaker lead is present in the right ventricle. The interatrial septum is intact with no evidence for an atrial septal defect. Left atrium is mildly dilated. Moderate aortic valve sclerosis. Mild aortic regurgitation. Moderate aortic stenosis. There is mitral annular calcification. Mild mitral regurgitation. Mild tricuspid regurgitation. Mild pulmonary hypertension. The RVSP is 40-45 mmHg. IVC is normal in size and collapses >50% with inspiration. <ELECTRONICALLY SIGNED> By: Jose Alejandro Cole MD, FACC 04/02/211652 52 52 Jose Alejandro Cole MD, FACC /INF
[2021-04-02 20:00] VITALS: BP 151/54
[2021-04-02 22:45] VITALS: BP 151/54
[2021-04-03 00:40] VITALS: BP 136/40
[2021-04-03 04:00] VITALS: BP 133/54
[2021-04-03 04:14] LABS: HEMATOCRIT 30.5 % (37.0-47.0); HEMOGLOBIN 10.3 gm/dL (12.0-15.0); MCHC 33.8 g/dL (28.0-37.0); MCV 88.9 fL (80.0-100.0); MPV 8.9 fl. (7.2-11.1); NUCLEATED RBCS 0 /100WBC; PLATELET COUNT* 230 thou/uL (150-400); RBC 3.43 mil/uL (4.20-5.00); RDW-CV 13.1 % (10.5-14.5); WBC 4.7 thou/uL (4.0-11.0)
[2021-04-03 04:44] LABS: CHOLESTEROL 159 mg/dL (<200); HDL CHOLESTEROL 39 mg/dL (>40); LDL CHOLESTEROL 98 mg/dL (<100); TC:HDL 4.1 Ratio (Not establshd); TRIGLYCERIDE 114 mg/dL (<150); VLDL 23 mg/dL (<40)
[2021-04-03 04:47] LABS: CALCIUM 7.8 mg/dL (8.5-10.1); POTASSIUM 4.6 mmol/L (3.5-5.1)
[2021-04-03 05:28] LABS: SERUM ASSESSMENT CLEAR
[2021-04-03 07:20] LABS: ABSOLUTE LYMPHOCYTES 1.1 thou/uL (0.8-5.3); ABSOLUTE MONOCYTES 0.4 thou/uL (0.0-1.2); ABSOLUTE NEUTROPHILS 3.2 thou/uL (1.6-8.1); ANISOCYTOSIS 1+; PLATELET ESTIMATE ADEQUATE; POIKILOCYTOSIS 1+
[2021-04-03 08:15] VITALS: BP 165/51
[2021-04-03 11:51] VITALS: BP 125/48
[2021-04-03 18:32] VITALS: BP 116/48
[2021-04-03 20:00] VITALS: BP 133/44
[2021-04-04 01:23] VITALS: BP 125/41
[2021-04-04 02:06] LABS: GLYCOHEMOGLOBIN (HGB A1C) 6.7 % (4.8-5.6)
[2021-04-04 04:23] VITALS: BP 147/52
[2021-04-04 10:52] VITALS: BP 139/59
[2021-04-04 13:06] VITALS: BP 132/45
[2021-04-04] MEDS ORDERED: DOXYCYCLINE 10100 MG PO (14:46)
[2021-04-04 15:25] VITALS: BP 132/45
[2021-04-04 17:02] VITALS: BP 116/49
== END 2021-04-04 17:30 | disposition home health service (06) | DRG 177 ==
LOC: M.ERS 04:26 → M.TBA-ER 06:45 → M.2W 10:38 → M.ORTHSURG 10:38 → M.2W 23:01 → M.ORTHSURG 04-03 13:22
PROVIDERS: Emergency Medicine; Internal Medicine; ADMIT Internal Medicine; ATTEND Internal Medicine
DX: U07.1 COVID-19 (principal); G93.41 Metabolic encephalopathy; J12.89 Other viral pneumonia; E87.1 Hypo-osmolality and hyponatremia; E11.649 Type 2 diabetes mellitus with hypoglycemia without coma; D64.9 Anemia, unspecified; E03.9 Hypothyroidism, unspecified; Z20.822 Contact with and (suspected) exposure to COVID-19; I10 Essential (primary) hypertension; E78.00 Pure hypercholesterolemia, unspecified; F17.210 Nicotine dependence, cigarettes, uncomplicated; Z90.49 Acquired absence of other specified parts of digestive tract; Z79.899 Other long term (current) drug therapy; Z79.82 Long term (current) use of aspirin; Z79.84 Long term (current) use of oral hypoglycemic drugs; Z88.1 Allergy status to other antibiotic agents; Z88.8 Allergy status to other drugs, medicaments and biological substances

== ENCOUNTER 2021-04-10 06:42 | Inpatient (IN) | payer MEDICARE, OTHER ==
[2021-04-10] VITALS (7 sets, daily range): BP systolic 123–156; BP diastolic 39–55
[~2021-04-10] VITALS: Ht 152.4 cm; Wt 62.2 kg
[~2021-04-10 06:42] MED LIST changes: +AMARYL2 M1 PO; +ASA81BEC PO; +DIFLUCAN150 M1 PO; +DOXYCYCLINE 10100 MG PO; +FLONASE 0.05%50 MCG NARES; +HYDRALAZINE 2525 MG PO; +LASIX 40 MG TAB40 MG PO; +LEVO-T100 MCG PO; +LIPITOR 20 MG T20 M1 PO; +LISINOPRIL20 MG PO; +LORAZEPAM 0.50.5 MG PO; +METFORMIN HCL500 M3 PO; +NEURONTIN 300M300 M2 PO; +ONDANSETRON ODT4 MG PO; +PIOGLITAZONE15 MG; +PROBIOTIC1 EAC7 PO; +TRIAMCINOLONE A80 G2 TOP; +ULTRAM 50MG TAB50 MG PO
[2021-04-10 07:39] LABS: ABSOLUTE BASOPHILS 0.1 thou/uL (0.0-0.2); ABSOLUTE LYMPHOCYTES 0.9 thou/uL (0.8-5.3); ABSOLUTE MONOCYTES 0.5 thou/uL (0.0-1.2); ABSOLUTE NEUTROPHILS 6.4 thou/uL (1.6-8.1); BASOPHILS 0.6 %; EOSINOPHILS 0.1 %; HEMATOCRIT 32.6 % (37.0-47.0); HEMOGLOBIN 10.7 gm/dL (12.0-15.0); LYMPHOCYTES 11.7 %; MCH 28.6 pg (26.0-34.0); MCHC 32.9 g/dL (28.0-37.0); MCV 86.9 fL (80.0-100.0); MONOCYTES 6.8 %; MPV 7.7 fl. (7.2-11.1); NUCLEATED RBCS 0 /100WBC; PLATELET COUNT* 331 thou/uL (150-400); POLYS 80.8 %; RBC 3.75 mil/uL (4.20-5.00); RDW-CV 13.2 % (10.5-14.5); WBC 7.9 thou/uL (4.0-11.0)
[2021-04-10 07:48] LABS: POTASSIUM 4.5 mmol/L (3.5-5.1)
[2021-04-10 08:03] LABS: TOTAL BILIRUBIN 0.4 mg/dL (<0.1-1.0); TOTAL PROTEIN 7.1 g/dL (6.4-8.2)
--- NOTE | 2021-04-10 09:45 | EKG ---
[place] [address] ELECTROCARDIOGRAM REPORT Name: ROBERT ARVIZUEDDI DEVRIESE Room: [place] [address] ADM IN [facility].#: [id number] Admission: 04/10/21 Attend Phys: Lisa Castellanos, Discharge: Date of : 39 Date of Service: 04/10/21 0805 Report #: [id number] THIS REPORT FOR: //name// [facility] ED Test Date: 2021-04-10 Test Time: 08:05:39 Pat Name: NAVDEEP ARVIZU Department: Room: [facility] Gender: F [employer] Consultant: FARZANEH : 1935 Requested By: Teto Sauer Order Number: [id number] MD: Roni Renae Measurements Intervals [place] Rate: 69 P: 6 NC: 209 QRS: -57 QRSD: 149 T: 86 QT: 442 QTc: 474 Interpretive Statements Atrial-sensed ventricular-paced rhythm No further analysis attempted due to paced rhythm Compared to ECG 04/02/2021 04:30:55 atrial paced beats no longer seen Electronically Signed On 04-10-2021 9:45:26 CDT by Roni Renae [email or web address] <ELECTRONICALLY SIGNED> By: Roni Renae MD, [facility] 04/10/21 0945 4 08 Roni Renae MD, [facility] /EPI
--- NOTE | 2021-04-11 01:01 | NUR ---
ASSUMED CARE OF PT AT 1900. PT IS ALERT AND ORIENTED. VSS. PERRLA. PT'S O2 TURNED UP TO 15 LITERS NASAL CANNULA. PT GIVEN LASIX. PT IS IN SINUS RYTHM ON THE TELEMETRY. PT IS RESTING COMFORTABLY IN BED. RESPIRATIONS ARE EVEN AND NONLABORED. WILL CONTINUE TO MONITOR PT.
[2021-04-11 03:52] VITALS: BP 127/46
[2021-04-11 04:40] LABS: HEMATOCRIT 31.3 % (37.0-47.0); HEMOGLOBIN 10.3 gm/dL (12.0-15.0); MCH 28.7 pg (26.0-34.0); MCHC 33.1 g/dL (28.0-37.0); MCV 86.8 fL (80.0-100.0); MPV 7.8 fl. (7.2-11.1); RBC 3.6 mil/uL (4.20-5.00); WBC 7.2 thou/uL (4.0-11.0)
[2021-04-11 05:08] LABS: ALBUMIN 2.6 g/dL (3.4-5.0); CALCIUM 8.1 mg/dL (8.5-10.1); CREATININE 0.9 mg/dL (0.6-1.3); MAGNESIUM 1.4 mg/dL (1.8-2.4); POTASSIUM 4.6 mmol/L (3.5-5.1); TOTAL BILIRUBIN 0.4 mg/dL (<0.1-1.0); TOTAL PROTEIN 6.6 g/dL (6.4-8.2)
[2021-04-11 08:00] VITALS: BP 131/62
[2021-04-11 11:30] VITALS: BP 106/42
--- NOTE | 2021-04-11 14:47 | NUR ---
Pt recently dc from this hospital on 04/04 with [facility]. Pt was covid positive during last hospital stay, Pt rapid covid is negative now. Pt normally resides at home with . Independent. Uses a cane for mobility. Pt currently on 40L of ox, continue to wean. Pt will be in the hospital for several days.
[2021-04-11 15:55] VITALS: BP 102/41
--- NOTE | 2021-04-11 18:32 | NUR ---
ASSUMED CARE OF PT AROUND 1730 FROM [facility]. IN BED, DENIES PAIN OR DISCOMFORT, ON HEATED HIGHFLOW, V PACED ON MONITOR. CALL LIGHT AND PERSONAL BELONGINGS PLACED WITHIN REACH. PT. IN BED, ALERT WITH EYES OPEN AT THIS TIME.
[2021-04-11 20:00] VITALS: BP 120/55
[2021-04-12 00:11] VITALS: BP 105/58
--- NOTE | 2021-04-12 03:45 | NUR ---
ASSUMED PT CARE AT APPROX. 1915. PT IS A/OX4. PT IS TRACING AV-PACED ON LABORATORY ASST. PT HAS A DRY NPC. PT IS ON HHFNC AT 55L/100%. O2 SATS DECREASE W/ ACTIVITY. PT CURRENT RESTING O2 RATE IS 93%. PT RR IS 16/MIN AND UNLABORED. PT DENIES C/O PAIN. PT CURRENTLY RESTING IN BED. HOB ELEVATED TO SEMI-FOWLERS POSITION. FALL PRECAUTIONS IN PLACE FOR SAFETY. CALL LIGHT WITHIN REACH. ASSESSMENTS AND HOURLY ROUNDS COMPLETE CHARTED. WILL CONT. TO MONITOR.
[2021-04-12 04:14] VITALS: BP 118/50
[2021-04-12 05:57] LABS: HEMATOCRIT 32.4 % (37.0-47.0); HEMOGLOBIN 10.5 gm/dL (12.0-15.0); MCH 28.1 pg (26.0-34.0); MCHC 32.3 g/dL (28.0-37.0); MCV 86.9 fL (80.0-100.0); MPV 7.8 fl. (7.2-11.1); NUCLEATED RBCS 0 /100WBC; PLATELET COUNT* 390 thou/uL (150-400); RBC 3.73 mil/uL (4.20-5.00); RDW-CV 13.2 % (10.5-14.5); WBC 16.6 thou/uL (4.0-11.0)
[2021-04-12 06:23] LABS: CALCIUM 7.9 mg/dL (8.5-10.1); CREATININE 1.1 mg/dL (0.6-1.3)
[2021-04-12 07:59] VITALS: BP 121/58
[2021-04-12 08:23] LABS: ABSOLUTE MONOCYTES 0.2 thou/uL (0.0-1.2); ABSOLUTE NEUTROPHILS 15.4 thou/uL (1.6-8.1); HYPOCHROMASIA Occasional
[2021-04-12 08:26] LABS: PLATELET ESTIMATE ADEQUATE
[2021-04-12 12:00] VITALS: BP 117/69; BP 123/71
[2021-04-12 20:00] VITALS: BP 119/52
[2021-04-12 23:41] VITALS: BP 110/45; BP 111/45
[2021-04-13] VITALS: BP 107/40
[2021-04-13 04:54] VITALS: BP 124/51
--- NOTE | 2021-04-13 04:59 | NUR ---
ASSUMED PT CARE AT APPROX. 1915. PT IS A/OX4. 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 PT IS ON BIPAP AND HHFNC DURING THE DAY. SEE CHART FOR RATES. PT CURRENT RESTING O2 RATE IS 93%. PT RR IS 16/MIN AND IS UNLABORED. PT DENIES C/O PAIN. PT CURRENTLY RESTING IN BED. HOB ELEVATED TO SEMI-FOWLERS POSITION. PT PREFERS TO LAY ON LEFT SIDE. FALL PRECAUTIONS IN PLACE FOR SAFETY. CALL LIGHT WITHIN REACH. ASSESSMENTS AND HOURLY ROUNDS COMPLETE CHARTED. WILL CONT. TO MONITOR.
[2021-04-13 06:33] LABS: ABSOLUTE LYMPHOCYTES 0.8 thou/uL (0.8-5.3); ABSOLUTE MONOCYTES 0.6 thou/uL (0.0-1.2); ABSOLUTE NEUTROPHILS 18.6 thou/uL (1.6-8.1); BASOPHILS 0.1 %; HEMATOCRIT 33.9 % (37.0-47.0); HEMOGLOBIN 10.7 gm/dL (12.0-15.0); LYMPHOCYTES 3.8 %; MCH 27.4 pg (26.0-34.0); MCHC 31.6 g/dL (28.0-37.0); MCV 86.7 fL (80.0-100.0); MONOCYTES 2.9 %; MPV 7.9 fl. (7.2-11.1); NUCLEATED RBCS 0 /100WBC; PLATELET COUNT* 381 thou/uL (150-400); POLYS 93.2 %; RBC 3.91 mil/uL (4.20-5.00); RDW-CV 12.9 % (10.5-14.5); WBC 19.9 thou/uL (4.0-11.0)
[2021-04-13 07:17] LABS: ALBUMIN 2.7 g/dL (3.4-5.0); CALCIUM 8.1 mg/dL (8.5-10.1); CREATININE 1.2 mg/dL (0.6-1.3); PHOSPHORUS* 3.7 mg/dL (2.5-4.9); POTASSIUM 4.3 mmol/L (3.5-5.1); TOTAL BILIRUBIN 0.3 mg/dL (<0.1-1.0); TOTAL PROTEIN 6.6 g/dL (6.4-8.2)
[2021-04-13 07:48] VITALS: BP 128/55
[2021-04-13 11:44] VITALS: BP 99/42
--- NOTE | 2021-04-13 14:56 | NUR ---
PT A/OX4, PLEASANT AND COOPERATIVE, SHE HAS BEEN AV-V-PACED ON TELEMETRY, CURRENTLY ON HEATED HIGH FLOW OXYGEN 55L AT 95% SHE HAS BEEN UP FOR MEALS SITTING HER RECLINER THIS SHIFT. PATIENT HAS ADEQUATE URINE OUTPUT AND IS UP WITH SBA TO BSC. ORDERED CEPACHOL LOZENGES BECAUSE SHE HAS A SORE THROAT.
[2021-04-13 16:48] VITALS: BP 91/41
[2021-04-13 20:00] VITALS: BP 109/44
[2021-04-14] VITALS: BP 118/45
[2021-04-14 04:00] VITALS: BP 107/40
[2021-04-14 06:15] LABS: ABSOLUTE LYMPHOCYTES 0.5 thou/uL (0.8-5.3); ABSOLUTE MONOCYTES 0.7 thou/uL (0.0-1.2); ABSOLUTE NEUTROPHILS 21.1 thou/uL (1.6-8.1); BASOPHILS 0.1 %; HEMOGLOBIN 10.6 gm/dL (12.0-15.0); LYMPHOCYTES 2.4 %; MCH 28.6 pg (26.0-34.0); MCHC 33.3 g/dL (28.0-37.0); MCV 85.9 fL (80.0-100.0); MONOCYTES 3.2 %; MPV 7.9 fl. (7.2-11.1); NUCLEATED RBCS 0 /100WBC; PLATELET COUNT* 369 thou/uL (150-400); POLYS 94.3 %; RBC 3.72 mil/uL (4.20-5.00); WBC 22.4 thou/uL (4.0-11.0)
[2021-04-14 06:43] LABS: ALBUMIN 2.5 g/dL (3.4-5.0); CALCIUM 7.9 mg/dL (8.5-10.1); CREATININE 1.4 mg/dL (0.6-1.3); MAGNESIUM 2.2 mg/dL (1.8-2.4); POTASSIUM 4.4 mmol/L (3.5-5.1); TOTAL PROTEIN 6.1 g/dL (6.4-8.2)
[2021-04-14 07:03] LABS: TOTAL BILIRUBIN 0.3 mg/dL (<0.1-1.0)
--- NOTE | 2021-04-14 07:28 | NUR ---
ASSUMED CARE OF PT AFTER REPORT AT 1930. PT A&OX4. VSS. PHYSICAL ASSESSMENT COMPLETED AND CHARTED. PT ON HHFNC 45L/100%/BIPAP 80% AT HS. PT TRACING AV PACED ON TELE. PT DENIES ANY PAIN. REMINDED TO SLEEP ON SIDES. MAINTAINED ON ENHANCED PREACUTION. CALL LIGHT WITHIN REACH.
[2021-04-14 07:42] VITALS: BP 105/75
[2021-04-14 11:53] VITALS: BP 103/47
[2021-04-14 16:24] VITALS: BP 91/41
--- NOTE | 2021-04-14 18:57 | NUR ---
PT A/OX4 PLEASANT AND COOPERATIVE, A-AV-V PACED ON TELE, WEARING HEATED HI-FLOW 35L 100%. PT HAD A BM THIS MORNING ADEQUATE URINE OUTPUT, UP TO BSC WITH SBA. PT MORE TALKATIVE AND APPEARS TO BE IN A BETTER MOOD TODAY.
[2021-04-14 20:00] VITALS: BP 105/60
[2021-04-15 00:29] VITALS: BP 112/59
[2021-04-15 04:39] VITALS: BP 119/51
[2021-04-15 05:10] LABS: HEMATOCRIT 31.1 % (37.0-47.0); HEMOGLOBIN 10.3 gm/dL (12.0-15.0); MCH 28.5 pg (26.0-34.0); MCV 86.2 fL (80.0-100.0); MPV 7.6 fl. (7.2-11.1); NUCLEATED RBCS 0 /100WBC; PLATELET COUNT* 371 thou/uL (150-400); RDW-CV 13.1 % (10.5-14.5); WBC 22.2 thou/uL (4.0-11.0)
[2021-04-15 05:39] LABS: ALBUMIN 2.5 g/dL (3.4-5.0); CALCIUM 8.2 mg/dL (8.5-10.1); CREATININE 1.5 mg/dL (0.6-1.3); MAGNESIUM 2.2 mg/dL (1.8-2.4); POTASSIUM 4.8 mmol/L (3.5-5.1); TOTAL BILIRUBIN 0.3 mg/dL (<0.1-1.0)
--- NOTE | 2021-04-15 05:56 | NUR ---
ASSUMED CARE OF PT AFTER REPORT AT 1930.PT A&OX4. VSS. PHYSICAL ASSESSMENT COMPLETED AND CHARTED. PT ON HHFNC 30L/100%/BIPAP 70%. PT TRACING AV PACED ON TELE. PT UPSTANDBY. PT DENIES ANY PAIN. CALL LIGHT WITHIN REACH.
[2021-04-15 07:42] LABS: ABSOLUTE LYMPHOCYTES 0.7 thou/uL (0.8-5.3); ABSOLUTE MONOCYTES 0.2 thou/uL (0.0-1.2); ABSOLUTE NEUTROPHILS 21.3 thou/uL (1.6-8.1); METAMYELOCYTES 1 %; PLATELET ESTIMATE ADEQUATE
[2021-04-15 08:14] VITALS: BP 124/52
[2021-04-15 12:26] VITALS: BP 97/46
--- NOTE | 2021-04-15 13:58 | NUR ---
Covid positive. Anticipate dc in a few days. On 30L HHF.
[2021-04-15 15:51] VITALS: BP 113/41
--- NOTE | 2021-04-15 19:27 | NUR ---
Pt c/o congestion and discomfort to sinuses and head. Dr. Stoner ordered Afrin and saline nasal sprays which were administered this evening. Oxygen titrated down from 30L @ 100% to 30L @ 60%. O2 sats mid to upper 90s. Pt has been up in chair since shortly before breakfast. VSS though BP on the lower end of normal range. Will continue to monitor.
[2021-04-15 20:00] VITALS: BP 115/47
[2021-04-16] VITALS: BP 113/46
[2021-04-16 04:00] VITALS: BP 119/38
--- NOTE | 2021-04-16 05:31 | NUR ---
ASSUMED CARE OF PT AFTER REPORT AT 1930. PT A&OX4. VSS. PHYSICAL ASSESSMENT COMPLETED AND CHARTED. PT ON HHFNC 30L/55%/BIPAP 35%. PT TRACING AV PACED ON TELE. PT UPSTANDBY TO BSC. CALL LIGHT WITHIN REACH.
[2021-04-16 06:11] LABS: HEMOGLOBIN 10.3 gm/dL (12.0-15.0); MCH 29.3 pg (26.0-34.0); MCHC 33.1 g/dL (28.0-37.0); MCV 88.5 fL (80.0-100.0); MPV 8.5 fl. (7.2-11.1); RBC 3.51 mil/uL (4.20-5.00); RDW-CV 13.4 % (10.5-14.5); WBC 18.8 thou/uL (4.0-11.0)
[2021-04-16 06:14] LABS: CALCIUM 8.4 mg/dL (8.5-10.1); CREATININE 1.2 mg/dL (0.6-1.3); POTASSIUM 5.2 mmol/L (3.5-5.1)
[2021-04-16 08:00] VITALS: BP 113/42
--- NOTE | 2021-04-16 11:29 | NUR ---
The patient is alert. Able to make needs known. Call light within reach. Denies CP or SOB.
[2021-04-16 12:00] VITALS: BP 117/49
--- NOTE | 2021-04-16 14:20 | NUR ---
Covid positive. On 30L, continue to wean
--- NOTE | 2021-04-16 14:45 | NUR ---
The patient is sitting in the recliner. No c/o SOB or CP. Denies pain. C/o of being lightheded and no enegry.
[2021-04-16 16:00] VITALS: BP 121/53
[2021-04-16 20:00] VITALS: BP 120/39
[2021-04-17 00:41] VITALS: BP 141/42
[2021-04-17 03:57] VITALS: BP 129/76
--- NOTE | 2021-04-17 04:36 | NUR ---
ASSUMED CARE OF PT AFTER REPORT AT 1930. PT A&OX4. VSS. PHYSICAL ASSESSMENT COMPLETED AND CHARTED. PT ON HFNC 10L/BIPAP 40%. PT TRACING AV PACED. PT UPSTANDBY. PT COMPLAINED OF LIGHT HEADEDNESS. FALL PRECAUTIONS IN PLACE. CALL LIGHT WITHIN REACH.
[2021-04-17 08:00] VITALS: BP 143/52
[2021-04-17 08:58] LABS: ABSOLUTE LYMPHOCYTES 0.4 thou/uL (0.8-5.3); ABSOLUTE MONOCYTES 0.6 thou/uL (0.0-1.2); ABSOLUTE NEUTROPHILS 13.6 thou/uL (1.6-8.1); BASOPHILS 0.1 %; HEMATOCRIT 32.7 % (37.0-47.0); HEMOGLOBIN 10.7 gm/dL (12.0-15.0); LYMPHOCYTES 2.9 %; MCH 28.5 pg (26.0-34.0); MCHC 32.8 g/dL (28.0-37.0); MCV 86.8 fL (80.0-100.0); MONOCYTES 4.2 %; MPV 8.4 fl. (7.2-11.1); NUCLEATED RBCS 0 /100WBC; POLYS 92.8 %; RBC 3.77 mil/uL (4.20-5.00); RDW-CV 13.3 % (10.5-14.5); WBC 14.6 thou/uL (4.0-11.0)
[2021-04-17 09:01] LABS: PLATELET COUNT* 356 thou/uL (150-400)
[2021-04-17 09:15] LABS: ALBUMIN 3.1 g/dL (3.4-5.0); CALCIUM 8.4 mg/dL (8.5-10.1); CREATININE 1.2 mg/dL (0.6-1.3); POTASSIUM 5.1 mmol/L (3.5-5.1); TOTAL BILIRUBIN 0.6 mg/dL (<0.1-1.0); TOTAL PROTEIN 6.2 g/dL (6.4-8.2)
[2021-04-17 12:00] VITALS: BP 126/48
--- NOTE | 2021-04-17 14:11 | NUR ---
Nutrition: Pt admitted to COVID unit. ARDS. Assessed for LOS. H/o DM, COPD, smoker. Proning pt when possible. Fluid overload. Wt: 137#. Pt has been given convelescant plasma and remdesivir. Unable to get ahzeke of RN on two attempts today. No intake records. Labs: BG 232-118, alb 3.1, prealb 16.9, WBC 14.6. PLEASE RECORD MEAL INTAKE %. Consider mild risk for now. RD to follow up on % intake, wt, labs 04/19/21.
--- NOTE | 2021-04-17 14:17 | NUR ---
Anticipate dc tomorrow. Covid positive. Pt down to 5L, continue to wean. Will need an ex ox at dc. Therapies to see today for dc to home safety.
[2021-04-17 16:00] VITALS: BP 131/47
[2021-04-17 20:00] VITALS: BP 115/44
[2021-04-18] VITALS: BP 134/46
[2021-04-18 04:00] VITALS: BP 109/51
[2021-04-18 05:01] LABS: HEMATOCRIT 28.6 % (37.0-47.0); HEMOGLOBIN 9.4 gm/dL (12.0-15.0); MCH 28.3 pg (26.0-34.0); MCHC 32.7 g/dL (28.0-37.0); MCV 86.6 fL (80.0-100.0); RBC 3.3 mil/uL (4.20-5.00); RDW-CV 13.1 % (10.5-14.5); WBC 10.9 thou/uL (4.0-11.0)
[2021-04-18 05:26] LABS: CALCIUM 8.2 mg/dL (8.5-10.1); CREATININE 1.2 mg/dL (0.6-1.3); POTASSIUM 5.1 mmol/L (3.5-5.1)
--- NOTE | 2021-04-18 06:35 | NUR ---
ASSUMED CARE OF PT AFTER REPORT AT 1930. PT A&OX4. VSS. PHYSICAL ASSESSMENT COMPLETED AND CHARTED. PT ON HFNC 2L/BIPAP 30%. PT TRACING AVPACED. PT DENIES ANY PAIN. PT UPSTANDBY. FALL PRECAUTIONS IN PLACE. CALL LIGHT WITHIN REACH.
[2021-04-18 08:00] VITALS: BP 109/38; BP 122/46
[2021-04-18 12:00] VITALS: BP 109/38; BP 120/75
--- NOTE | 2021-04-18 13:44 | NUR ---
Covid positive. Anticipate dc tomorrow. On bipap 30% fio2. 2L o2. Therapies to see. Plan ex ox at dc
--- NOTE | 2021-04-18 17:32 | NUR ---
RECEIVED REPORT AROUND 714. ASSUMED CARE. VS AND ASSESSMENT CHARTED. IV INTACT. HEART MONITOR ATTACHED SR. MEDS GIVEN PER NOV. HOURLY ROUNDING PERFORMED. PT SAT IN CHAIR MOST OF DAY. 3L NC. POSSIBLE D/C TOMORROW DEPENDING ON REST AND EXERCISE. NO PAIN THIS SHIFT. COMPLAINED OF DIZZINESS THIS AFTERNOON. TOLD PT TO DRINK FLUIDS. CALL LIGHT WITH IN REACH. WILL CONTINUE TO MONITOR.
[2021-04-18 21:15] VITALS: BP 136/39
--- NOTE | 2021-04-18 23:23 | CON ---
[address] [address] CONSULTATION Name: NAVDEEP ARVIZU Room: [address] IN M.R.#: [id number] Admission: 04/10/21 Attend Phys: Lisa Castellanos MD Discharge: Date of : 39 Report #: [id number] THIS REPORT FOR: cc: Prema Kirkpatrick MD, Sarah Beth MD Pervez, Adeel MD ~ DATE OF CONSULTATION: 04/12/2021 REQUESTING PHYSICIAN: Dr. Gruber. INDICATION FOR CONSULTATION: Acute hypoxemic respiratory failure secondary to COVID-19. HISTORY OF PRESENT ILLNESS: The patient is an 85-year-old female with past medical history is as mentioned below. She has an extensive history of smoking and still smokes. She, however, does not carry a previous diagnosis of COPD. She has had a recent admission to this hospital with altered mental status and she does have moderate aortic stenosis. At this time, the patient is again admitted this time with COVID-19. The patient had reported cough, increasing shortness of breath, only a small amount of sputum production. No chest pain. She did not have upper respiratory complaints or swelling of lower extremities. The patient earlier had had fever and chills with changes in appetite and weakness. Since admission, the patient has become progressively more and more hypoxemic. Right now, she is on 100% FiO2, 55 liters flow and is barely saturating in the low 90s. The patient does have significant shortness of breath at rest. I obtained a chest x-ray, which shows considerable worsening compared with the previous chest x-ray performed on 04/10. REVIEW OF SYSTEMS: The patient's review of systems for 12 points is negative except as mentioned above. PAST MEDICAL HISTORY: Moderate aortic stenosis, left ventricular ejection fraction is normal, right heart pressures are mildly elevated to 40-45. Her creatinine is normal. She does have significant hypertension, diabetes, neck surgery, cholecystectomy, hyperlipidemia, hypothyroidism, anemia, gastroesophageal reflux disease. SOCIAL HISTORY: She has an extensive history of smoking of more than 50 years, still smokes half a pack a day. No known history of heavy alcohol use or illegal drug use. CURRENT MEDICATIONS: [place] [address] CONSULTATION Name: NAVDEEP ARVIZU Room: [address]#: [id number] Admission: 04/10/21 Attend Phys: Lisa Castellanos MD Discharge: Date of : 39 Report #: [id number] HOME MEDICATIONS: List in [place] reviewed. FAMILY HISTORY: No pertinent family history. ALLERGIES: She has had an adverse reaction to Cipro and metronidazole. PHYSICAL EXAMINATION: GENERAL: She is alert, awake and oriented. She is saturating only 91-92%, 100% FiO2, 55 liters flow. VITAL SIGNS: Pulse 77, respiratory rate mid 20s, blood pressure 120/70. She is afebrile with a temperature of 36.0. HEENT: Normocephalic and atraumatic. NECK: Does not show raised JVP asymmetry, mass or lymph nodes. CHEST: Symmetrical expansion on inspection and palpation. On auscultation, breath sounds are decreased, equal. I do not hear any added sounds. HEART: Regular. There is a soft systolic murmur. ABDOMEN: Soft and nontender. EXTREMITIES: Lower extremities show no edema and no calf tenderness. SKIN: Dry and intact. NEUROLOGIC: Moves all extremities bilaterally equally and spontaneously with no focal deficit identified. LABORATORY DATA: The patient's chest x-ray, which is significantly worse than the one performed on the 4th in [facility], reviewed. CT chest and venous Doppler, consistent with COVID-19. There are extensive infiltrates. There are no pulmonary emboli. The patient's lab work is in [facility] and this is reviewed. ASSESSMENT AND PLAN: 1. Acute hypoxemic respiratory failure and acute respiratory distress syndrome secondary to COVID-19. Continue to titrate oxygen. Avoid supine sleep, if possible prone, otherwise on sides. Out of bed to chair if feasible, add BiPAP while asleep. 2. COVID-19. Continue dexamethasone. Considering severe hypoxemia as well as the fact that the patient likely has underlying COPD, I will increase the dose of dexamethasone. Note that the patient has had altered mental status recently, dexamethasone can cause altered mental status. Incidence of altered mental status is higher with dexamethasone compared with Solu-Medrol. In case she has mental status changes, I will switch her to Solu-Medrol. Continue remdesivir, received Actemra earlier. We will give her 1 unit of convalescent plasma again today, received 1 unit previously. 3. Pulmonary infiltrates, primarily these appear to be secondary to COVID-19. However, considering severe hypoxemia as well as recent hospitalization, I went [address] [address] CONSULTATION Name: NAVDEEP ARVIZU Room: [address] IN ..#: [id number] Admission: 04/10/21 Attend Phys: Lisa Castellanos MD Discharge: Date of : 39 Report #: [id number] ahead and switched ceftriaxone over to cefepime and remains on Zithromax. We will do a nasal swab for MRSA if feasible, then we will do a sputum culture as well. 4. Fluid overload/moderate aortic stenosis. I would like to run her on the drier transfer car operator side in order to facilitate diuresis. We will run the blood pressure a bit on the higher side. Therefore, I discontinued hydralazine, remains on other blood pressure medications. We will give her 60 of Lasix with convalescent plasma today. We will reevaluate tomorrow from more diuresis, may benefit from a Cardiology consult after recovery from current illness. 5. Extensive history of smoking/suspected chronic obstructive pulmonary disease exacerbation. I also switched her Xopenex over to DuoNeb. We are giving her steroid as above. She still smokes. 6. Diabetes/hyperglycemia. May need more insulin with the additional amount of steroid ordered. 7. History of allergic rhinitis. I will go ahead and discontinue Flonase to reduce the risk of epistaxis. 8. Deep vein thrombosis prophylaxis. Agree with moderate dose Lovenox. 9. Gastrointestinal prophylaxis, on Pepcid. 10. Clostridium difficile prophylaxis, Lactinex. The patient is critically ill at this time. Total time spent providing critical care to this patient today, exceeds 45 minutes. <ELECTRONICALLY SIGNED> By: Lakhwinder Stoner MD 04/18/21 [id number] Stoner MD /nt
[2021-04-19 00:44] VITALS: BP 105/35
--- NOTE | 2021-04-19 01:42 | NUR ---
ASSUMED CARE OF PT AT 1900. PT IS ALERT AND ORIENTED. VSS. PERRLA. PT IS ON 3 LITERS. NO COMPLAINTS OF PAIN. PT IS V PACED ON THE TELEMETRY. PT IS RESTING COMFORTABLY IN BED. RESPIRATIONS ARE EVEN AND NONLABORED. WILL CONTINUE TO MONITOR PT.
[2021-04-19 04:30] VITALS: BP 112/39
[2021-04-19 05:03] LABS: ABSOLUTE LYMPHOCYTES 0.6 thou/uL (0.8-5.3); ABSOLUTE MONOCYTES 0.4 thou/uL (0.0-1.2); ABSOLUTE NEUTROPHILS 8.8 thou/uL (1.6-8.1); BASOPHILS 0.2 %; EOSINOPHILS 0.1 %; HEMATOCRIT 29.2 % (37.0-47.0); HEMOGLOBIN 9.5 gm/dL (12.0-15.0); LYMPHOCYTES 6.4 %; MCH 28.2 pg (26.0-34.0); MCHC 32.4 g/dL (28.0-37.0); MCV 86.8 fL (80.0-100.0); MPV 8.2 fl. (7.2-11.1); NUCLEATED RBCS 0 /100WBC; PLATELET COUNT* 249 thou/uL (150-400); POLYS 89.3 %; RBC 3.36 mil/uL (4.20-5.00); RDW-CV 13.4 % (10.5-14.5); WBC 9.8 thou/uL (4.0-11.0)
[2021-04-19 05:24] LABS: ALBUMIN 2.5 g/dL (3.4-5.0); CALCIUM 8.2 mg/dL (8.5-10.1); POTASSIUM 5.1 mmol/L (3.5-5.1); TOTAL BILIRUBIN 0.6 mg/dL (<0.1-1.0); TOTAL PROTEIN 5.5 g/dL (6.4-8.2)
[2021-04-19 08:00] VITALS: BP 116/46
[2021-04-19 12:15] VITALS: BP 117/42
--- NOTE | 2021-04-19 13:05 | NUR ---
Nutrition: Reassessment. Spoke with pt's RN. Pt is eating fair amount, ~50%. Off bipap. On 4L O2. Labs: albumin 2.5, prealb 16.9, BG 170. Has BLE edema. Wt stable. SSI. Continue at mild risk. Will follow up per protocol.
--- NOTE | 2021-04-19 15:51 | NUR ---
DC delayed, Pt o2 needs up to 4L today from 2L this morning. CM spoke with Dtr, dtr concerned about Pt discharging home. Plan for therapies to assess Pt today/this weekend, and goal will be dc to ARU on Thursday. Per ID nurse, Pt should be out of isolation this weekend. CM to remain in contact with family
[2021-04-19 16:14] VITALS: BP 124/43
--- NOTE | 2021-04-19 18:10 | NUR ---
RECEIVED REPORT AROUND 0715. ASSUMED CARE. VS AND ASSESSMENT CHARTED. IV INTACT LEFT FOREARM. HEART MONITOR ATTACHED AT SR. PT UP IN CHAIR FOR PART OF DAY. 4L NC. NO PAIN THIS SHIFT. MEDS GIVEN PER NOV. HOURLY ROUNDING PERFORMED. ISOLATION INTACT. UPDATED DAUGHTER THIS SHIFT. CALL LIGHT WITH INREACH. WILL CONTINUE TO MONITOR.
[2021-04-19 20:35] VITALS: BP 110/48
[2021-04-20 00:45] VITALS: BP 126/48
--- NOTE | 2021-04-20 02:56 | NUR ---
ASSUMED CARE OF PT AT 1900. PT IS ALERT AND ORIENTED. VSS. PERRLA. PT IS ON 2 LITERS O2. PT IS V PACED ON THE TELEMETRY. PT IS SLEEPING COMFORTABLY IN BED. RESPIRATIONS ARE EVEN AND NONLABORED. WILL CONTINUE TO MONITOR PT.
[2021-04-20 04:35] VITALS: BP 137/45
[2021-04-20 08:00] VITALS: BP 118/43
[2021-04-20 12:48] VITALS: BP 124/44
[2021-04-20 16:24] VITALS: BP 100/34
--- NOTE | 2021-04-20 18:15 | NUR ---
RECEIVED REPORT AROUND 0715. ASSUMED CARE. VS AND ASSESSMENT CHARTED. IV INTACT. HEART MONITOR ATTACHED AT SR. PT UP IN CHAIR. NO PAIN THIS SHIFT. UPDATED DAUGHTER ON PT. MEDS GIVEN PER NOV. HOURLY ROUNDING PERFORMED. ISOLATION INTACT. CALL LIGHT WITH IN REACH. WILL CONTINUE TO MONITOR.
[2021-04-20 19:55] VITALS: BP 133/49
--- NOTE | 2021-04-20 23:51 | NUR ---
ASSUMED CARE OF PT AT 1900. PT IS ALERT AND ORIENTED. VSS. PERRLA. NO COMPLAINTS OF PAIN. PT IS ON 3 LITERS O2. PT IS V PACED ON THE TELEMETRY. PT IS RESTING COMFORTABLY IN BED. RESPIRATIONS ARE EVEN AND NONLABORED. WILL CONTINUE TO MONITOR PT.
[2021-04-21 00:13] VITALS: BP 106/43
[2021-04-21 05:05] VITALS: BP 130/54
[2021-04-21 05:24] LABS: HEMATOCRIT 27.1 % (37.0-47.0); HEMOGLOBIN 9.3 gm/dL (12.0-15.0); MCH 29.2 pg (26.0-34.0); MCHC 34.1 g/dL (28.0-37.0); MCV 85.5 fL (80.0-100.0); MPV 8.7 fl. (7.2-11.1); NUCLEATED RBCS 0 /100WBC; PLATELET COUNT* 204 thou/uL (150-400); RBC 3.17 mil/uL (4.20-5.00); RDW-CV 13.1 % (10.5-14.5); WBC 10.4 thou/uL (4.0-11.0)
--- NOTE | 2021-04-21 05:32 | NUR ---
ASSUMED PATIENT CARE AT APPROXIMATELY 0110 FROM NIGHT NURSE ETELVINA. I AGREE WITH PRIOR NURSE ASSESSMENT. PATIENT HAS SLEPT WELL THROUGHOUT THE NIGHT. VSS ON 3L 02 VIA NASAL CANNULA. MEDICATION GIVEN ORDERED AND CHARTED. IV IN LEFT FOREARM-SL. PATIENT INSTRUCTED TO USE CALL LIGHT WHEN NEEDING ASSISTANCE. HOURLY ROUNDS MADE. WILL CONTINUE WITH PLAN OF CARE AND NURSING TO MONITOR.
[2021-04-21 05:45] LABS: ALBUMIN 2.9 g/dL (3.4-5.0); CALCIUM 8.5 mg/dL (8.5-10.1); POTASSIUM 5.2 mmol/L (3.5-5.1); TOTAL BILIRUBIN 0.5 mg/dL (<0.1-1.0); TOTAL PROTEIN 5.6 g/dL (6.4-8.2)
[2021-04-21 07:00] LABS: ABSOLUTE LYMPHOCYTES 0.9 thou/uL (0.8-5.3); ABSOLUTE MONOCYTES 0.2 thou/uL (0.0-1.2); ABSOLUTE NEUTROPHILS 9.3 thou/uL (1.6-8.1); PLATELET ESTIMATE ADEQUATE
[2021-04-21 08:53] VITALS: BP 119/54
[2021-04-21 14:20] VITALS: BP 130/44
--- NOTE | 2021-04-21 17:16 | NUR ---
PATIENT HAS REMAINED A&OX4, PLEASANT AND COOPERATIVE WITH CARES THIS SHIFT. PATIENT ON O2@5L VIA NASAL CANNULA, DENIES SOA; IS V-PACED ON THE MONITOR. PATIENT UP TO BSC WITH STANDBY ASSIST. MEDICATIONS ADMINISTERED ORDERED. PATIENT MOVED TO ROOM 101 FROM 107 D/T NO LONGER NEEDING NEBULIZER TREATMENTS. CALL LIGHT AND FREQUENTLY USED ITEMS WITHIN REACH.
[2021-04-21 20:00] VITALS: BP 111/37
[2021-04-22 01:57] VITALS: BP 121/40
--- NOTE | 2021-04-22 03:54 | NUR ---
PT SLEPT MOST OF SHIFT. ASSESSMENT DOCUMENTED. MEDS GIVEN PER E-MAR. IV PATENT. NO REPORTS OF PAIN. FALL PRECAUTIONS IN PLACE. PT ON 5L NC THIS SHIFT. PT ABLE TO MAKE NEEDS KNOWN. WILL CONTINUE WITH PLAN OF CARE.
[2021-04-22 04:45] VITALS: BP 113/49
[2021-04-22 05:35] LABS: ABSOLUTE LYMPHOCYTES 0.6 thou/uL (0.8-5.3); ABSOLUTE MONOCYTES 0.5 thou/uL (0.0-1.2); ABSOLUTE NEUTROPHILS 9.6 thou/uL (1.6-8.1); BASOPHILS 0.1 %; EOSINOPHILS 0.2 %; HEMOGLOBIN 9.1 gm/dL (12.0-15.0); LYMPHOCYTES 5.2 %; MCH 28.2 pg (26.0-34.0); MCHC 32.6 g/dL (28.0-37.0); MCV 86.6 fL (80.0-100.0); MONOCYTES 4.8 %; NUCLEATED RBCS 0 /100WBC; PLATELET COUNT* 190 thou/uL (150-400); POLYS 89.7 %; RBC 3.24 mil/uL (4.20-5.00); WBC 10.7 thou/uL (4.0-11.0)
[2021-04-22 06:01] LABS: ALBUMIN 2.8 g/dL (3.4-5.0); CALCIUM 8.3 mg/dL (8.5-10.1); POTASSIUM 5.3 mmol/L (3.5-5.1); TOTAL BILIRUBIN 0.4 mg/dL (<0.1-1.0); TOTAL PROTEIN 5.6 g/dL (6.4-8.2)
[2021-04-22 08:03] VITALS: BP 104/87
[2021-04-22 11:40] VITALS: BP 101/34
--- NOTE | 2021-04-22 13:26 | NUR ---
PATIENT TRANSFER WITH ASSIST TO CHAIR. SPO2 NOT RECOVERING WITHOUT INCERASED OXYGEN FLOW RATE SLOWLY TO 10L/MIN SPO2 92% REQUIRED 8L/MIN HF NASAL CANNULA TO EAT LUNCH AT REST ABLE TO TITRATE OXYGEN DOWN TO 5 L/MIN NASAL CANNULA. RT AWARE. AWARE.
--- NOTE | 2021-04-22 14:30 | NUR ---
Pt out of covid iso today. On 5L o2. Pt had to be increased to 10L earlier today, back down to 5L. Plan ARU at dc, anticipate dc tomorrow pending pulm. Updated Pt's dtr.
[2021-04-22 16:00] VITALS: BP 106/53
[2021-04-22 19:30] VITALS: BP 127/49
[2021-04-23] VITALS (7 sets, daily range): BP systolic 113–151; BP diastolic 38–58
--- NOTE | 2021-04-23 05:01 | NUR ---
PT SLEPT MOST OF SHIFT. ASSESSMENT DOCUMENTED. MEDS GIVEN PER E-MAR. IV PATENT. NO REPORTS OF PAIN. FALL PRECAUTIONS IN PLACE. PT ON 6L NC THIS SHIFT. IS USED. PT ABLE TO MAKE NEEDS KNOWN. WILL CONTINUE WITH PLAN OF CARE.
[2021-04-23 05:52] LABS: ABSOLUTE EOSINOPHILS 0.1 thou/uL (0.0-0.7); ABSOLUTE LYMPHOCYTES 0.7 thou/uL (0.8-5.3); ABSOLUTE MONOCYTES 0.6 thou/uL (0.0-1.2); ABSOLUTE NEUTROPHILS 10.6 thou/uL (1.6-8.1); BASOPHILS 0.1 %; EOSINOPHILS 0.5 %; HEMATOCRIT 27.6 % (37.0-47.0); HEMOGLOBIN 9.1 gm/dL (12.0-15.0); LYMPHOCYTES 6.2 %; MCH 28.4 pg (26.0-34.0); MCHC 33.1 g/dL (28.0-37.0); MCV 85.9 fL (80.0-100.0); MONOCYTES 5.3 %; NUCLEATED RBCS 0 /100WBC; PLATELET COUNT* 186 thou/uL (150-400); POLYS 87.9 %; RBC 3.22 mil/uL (4.20-5.00); RDW-CV 12.7 % (10.5-14.5)
[2021-04-23 06:04] LABS: ALBUMIN 2.7 g/dL (3.4-5.0); CALCIUM 8.3 mg/dL (8.5-10.1); CREATININE 0.9 mg/dL (0.6-1.3); MAGNESIUM 2.4 mg/dL (1.8-2.4); POTASSIUM 5.2 mmol/L (3.5-5.1); TOTAL BILIRUBIN 0.5 mg/dL (<0.1-1.0); TOTAL PROTEIN 5.8 g/dL (6.4-8.2)
--- NOTE | 2021-04-23 15:03 | NUR ---
Anticipate dc tomorrow. Therapies to see. On 6L, wean to 5L or if Pt remains on 6L tomorrow, plan to ARU. Updated dtr.
--- NOTE | 2021-04-23 15:53 | NUR ---
BOILERS INSPECTOR TRACKING AV PACED TO VPACED RHYTHM. UP IN CHAIR, VOIDING IN BSC CALLING FOR ASSIST WHEN NEEDING TO GET UP. UP IN CHAIR MOST OF AFTERNOON. 02 ON 6L PER NC, ATTEMPTED TO TITRATE O2 IN AM WITH NO SUCCESS - 02 SAT DROPPING TO 81% ON 4L. TOLERATING DIET, NO COMPLAINTS OF PAIN TO NURSING. WEAKNESS NOTED. CALL LIGHT WITHIN REACH, WILL CONTINUE WITH PLAN OF CARE.
--- NOTE | 2021-04-24 03:51 | NUR ---
PT SLEPT MOST OF SHIFT. ASSESSMENT DOCUMENTED. MEDS GIVEN PER E-MAR. IV PATENT. NO REPORTS OF PAIN. PT ON 4L NC THIS SHIFT. PT ABLE TO MAKE NEEDS KNOWN. WILL CONTINUE WITH PLAN OF CARE.
[2021-04-24 04:30] VITALS: BP 147/55
[2021-04-24 06:04] LABS: HEMATOCRIT 27.8 % (37.0-47.0); HEMOGLOBIN 9.1 gm/dL (12.0-15.0); MCH 28.3 pg (26.0-34.0); MCHC 32.6 g/dL (28.0-37.0); MCV 86.8 fL (80.0-100.0); MPV 9.1 fl. (7.2-11.1); NUCLEATED RBCS 0 /100WBC; PLATELET COUNT* 181 thou/uL (150-400); WBC 10.3 thou/uL (4.0-11.0)
[2021-04-24 06:19] LABS: CALCIUM 8.4 mg/dL (8.5-10.1)
[2021-04-24 07:13] LABS: ABSOLUTE LYMPHOCYTES 0.8 thou/uL (0.8-5.3); ABSOLUTE MONOCYTES 0.5 thou/uL (0.0-1.2); PLATELET ESTIMATE ADEQUATE
[2021-04-24 08:00] VITALS: BP 133/76
[2021-04-24] MEDS ORDERED: ZINC SULFATE50 MG PO (12:09)
[2021-04-24] MEDS ORDERED: VITAMIN C1000 MG PO (12:09)
[2021-04-24] MEDS ORDERED: VITAMIN D325 MC2 PO (12:09)
[2021-04-24] MEDS ORDERED: DEXAMETHASONE1 MG PO (12:10)
[2021-04-24 12:18] VITALS: BP 120/44
--- NOTE | 2021-04-24 12:22 | NUR ---
Pt discharging to ARU later today. Pt down to 4L. Updated Pt's dtr of dispo
--- NOTE | 2021-04-24 18:59 | NUR ---
PATIENT RESTING UP IN CHAIR. PATIENT IS UP WITH MINIMAL ASSIST. PATIENT HAS DYSPNEA WITH EXERTION. PATIENT'S OXYGEN NEEDS INCREASED THIS AM WITH MOVEMENT TO CHAIR TO 8L/NC. PATIENT CURRENTLY AT 7L/NC. DISCHARGE TO REHAB HELD DUE TO ROOM AVAILIBILTY AND INCREASED O2 NEEDS. DISCHARGE PLANNED FOR TOMORROW TO ACUTE REHAB. PATIENT DENIES ANY NEEDS AT THIS TIME. CALL LIGHT WITHIN REACH.
[2021-04-24 19:51] VITALS: BP 115/39
[2021-04-25] VITALS (8 sets, daily range): BP systolic 85–146; BP diastolic 40–70
--- NOTE | 2021-04-25 04:50 | NUR ---
DR DUKES CALLED BACK FOR ORDER FOR HYDRALAZINE
--- NOTE | 2021-04-25 14:49 | NUR ---
Pt to dc to ARU today. Updated Pt's dtr.
== END 2021-04-25 21:06 | DRG 177 ==
LOC: M.ERS 06:42 → M.ORTHSURG 09:31 → M.TBA-ER 09:31 → M.ORTHSURG 15:49
PROVIDERS: Family Medicine; Internal Medicine; Internal Medicine Critical Care Medicine; ADMIT Internal Medicine; ATTEND Internal Medicine
PROC: 5A0945A Assistance with Respiratory Ventilation, 24-96 Consecutive Hours, High Flow/Velocity Cannula (ICD-10-PCS; principal; 2021-04-10)
PROC: XW13325 Transfusion of Convalescent Plasma (Nonautologous) into Peripheral Vein, Percutaneous Approach, New Technology Group 5 (ICD-10-PCS; principal; 2021-04-10)
PROC: XW033H5 Introduction of Tocilizumab into Peripheral Vein, Percutaneous Approach, New Technology Group 5 (ICD-10-PCS; principal; 2021-04-10)
PROC: XW033E5 Introduction of Remdesivir Anti-infective into Peripheral Vein, Percutaneous Approach, New Technology Group 5 (ICD-10-PCS; 2021-04-12)
PROC: 5A09357 Assistance with Respiratory Ventilation, Less than 24 Consecutive Hours, Continuous Positive Airway Pressure (ICD-10-PCS; 2021-04-13)
PROC: 5A0935A Assistance with Respiratory Ventilation, Less than 24 Consecutive Hours, High Flow/Velocity Cannula (ICD-10-PCS; 2021-04-13)
PROC: 5A09357 Assistance with Respiratory Ventilation, Less than 24 Consecutive Hours, Continuous Positive Airway Pressure (ICD-10-PCS; 2021-04-14)
PROC: 5A0935A Assistance with Respiratory Ventilation, Less than 24 Consecutive Hours, High Flow/Velocity Cannula (ICD-10-PCS; 2021-04-14)
PROC: 5A09357 Assistance with Respiratory Ventilation, Less than 24 Consecutive Hours, Continuous Positive Airway Pressure (ICD-10-PCS; 2021-04-15)
PROC: 5A0935A Assistance with Respiratory Ventilation, Less than 24 Consecutive Hours, High Flow/Velocity Cannula (ICD-10-PCS; 2021-04-15)
PROC: 5A09357 Assistance with Respiratory Ventilation, Less than 24 Consecutive Hours, Continuous Positive Airway Pressure (ICD-10-PCS; 2021-04-16)
PROC: 5A0935A Assistance with Respiratory Ventilation, Less than 24 Consecutive Hours, High Flow/Velocity Cannula (ICD-10-PCS; 2021-04-16)
PROC: 5A09357 Assistance with Respiratory Ventilation, Less than 24 Consecutive Hours, Continuous Positive Airway Pressure (ICD-10-PCS; 2021-04-17)
PROC: 5A0935A Assistance with Respiratory Ventilation, Less than 24 Consecutive Hours, High Flow/Velocity Cannula (ICD-10-PCS; 2021-04-17)
PROC: 5A09357 Assistance with Respiratory Ventilation, Less than 24 Consecutive Hours, Continuous Positive Airway Pressure (ICD-10-PCS; 2021-04-18)
PROC: 5A09357 Assistance with Respiratory Ventilation, Less than 24 Consecutive Hours, Continuous Positive Airway Pressure (ICD-10-PCS; 2021-04-19)
PROC: 5A0935A Assistance with Respiratory Ventilation, Less than 24 Consecutive Hours, High Flow/Velocity Cannula (ICD-10-PCS; 2021-04-19)
PROC: 5A09357 Assistance with Respiratory Ventilation, Less than 24 Consecutive Hours, Continuous Positive Airway Pressure (ICD-10-PCS; 2021-04-20)
PROC: 5A0935A Assistance with Respiratory Ventilation, Less than 24 Consecutive Hours, High Flow/Velocity Cannula (ICD-10-PCS; 2021-04-22)
PROC: 5A0935A Assistance with Respiratory Ventilation, Less than 24 Consecutive Hours, High Flow/Velocity Cannula (ICD-10-PCS; 2021-04-23)
PROC: 5A0935A Assistance with Respiratory Ventilation, Less than 24 Consecutive Hours, High Flow/Velocity Cannula (ICD-10-PCS; 2021-04-24)
PROC: 5A0935A Assistance with Respiratory Ventilation, Less than 24 Consecutive Hours, High Flow/Velocity Cannula (ICD-10-PCS; 2021-04-25)
DX: U07.1 COVID-19 (principal); J12.82 Pneumonia due to coronavirus disease 2019; J80 Acute respiratory distress syndrome; J44.1 Chronic obstructive pulmonary disease with (acute) exacerbation; J44.0 Chronic obstructive pulmonary disease with (acute) lower respiratory infection; I10 Essential (primary) hypertension; E78.00 Pure hypercholesterolemia, unspecified; E03.9 Hypothyroidism, unspecified; E78.5 Hyperlipidemia, unspecified; K21.9 Gastro-esophageal reflux disease without esophagitis; F17.210 Nicotine dependence, cigarettes, uncomplicated; I35.0 Nonrheumatic aortic (valve) stenosis; E11.65 Type 2 diabetes mellitus with hyperglycemia; R79.89 Other specified abnormal findings of blood chemistry; D64.9 Anemia, unspecified; Z79.84 Long term (current) use of oral hypoglycemic drugs; Z79.82 Long term (current) use of aspirin; Z79.899 Other long term (current) drug therapy; Z90.49 Acquired absence of other specified parts of digestive tract; Z88.1 Allergy status to other antibiotic agents

== ENCOUNTER 2021-04-25 15:31 | Inpatient (IN) | payer MEDICARE, OTHER ==
[~2021-04-25] VITALS: Ht 154.9 cm; Wt 60.7 kg
[~2021-04-25 15:31] MED LIST changes: +DEXAMETHASONE1 MG PO; +VITAMIN C1000 MG PO; +VITAMIN D325 MC2 PO; +ZINC SULFATE50 MG PO
[2021-04-25 21:30] VITALS: BP 142/48
--- NOTE | 2021-04-26 01:18 | NUR ---
ASSUMED CARE AT 2119 WHEN PATIENT ADMITTED TO ROOM 326 PER W/C. UP WITH MOD ASSIST, GAIT BELT, WALKER. WEARING PULLUP, THIS CHANGED AT HS. MOISTURE BARRIER APPLIED AT HS. ASSESSMENT DONE. TAKES PILLS WHOLE WITH WATER. TURNS SELF. NEEDS A LITTLE HELP TO GET LEGS IN BED. 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 ON GABAPENTIN. O2 5L/NC. HAS MULTIPLE AREAS OF BRUISING, SOME ON ABD. STATES BILAT TOES ARE BRUISED BECAUSE SHE DROPPED THE WALKER ON THEM. FEET UP ON PILLOWS. PLANS ON USING BSC. HOURLY ROUNDS CONTINUE. BED ALARM ON. CALL LITE IN REACH.
[2021-04-26 04:06] LABS: HEMATOCRIT 27.3 % (37.0-47.0); MCH 28.5 pg (26.0-34.0); MCHC 32.8 g/dL (28.0-37.0); MCV 86.9 fL (80.0-100.0); MPV 8.6 fl. (7.2-11.1); RBC 3.14 mil/uL (4.20-5.00); WBC 9.7 thou/uL (4.0-11.0)
[2021-04-26 04:17] LABS: CALCIUM 8.5 mg/dL (8.5-10.1); POTASSIUM 5.3 mmol/L (3.5-5.1)
--- NOTE | 2021-04-26 05:49 | NUR ---
SLEPT MUCH OF THE NIGHT. VOIDED TWICE PER BSC. NO C/O PAIN. TURNS SELF. HOURLY ROUNDS CONTINUE. BED ALARM ON. CALL LITE IN REACH.
[2021-04-26 08:15] VITALS: BP 145/45
--- NOTE | 2021-04-26 13:58 | NUR ---
Nutrition: Pt admitted to rehab with debility post COVID. H/o DM, COPD. Pt stated her usual wt is 130#. Labs: BG 186-262, K+ 5.3, alb 2.7, prealb 17.2. Pt and family stated she controls her BG with diet and exercise. Pt said BG runs ~120 at home. She has had low BG without SX. We discussed [place] for hypoglycemia. On steroids. She is eating meals well. No other nutrition interventions needed at this time. Low risk.
--- NOTE | 2021-04-26 17:30 | NUR ---
ALERT AND ORIENTED X4. UP WITH 1 ASSIST, GAIT BELT AND WALKER. DIET CHANGED TO CARB CONTROL DIET AND SLIDING SCALE INSULIN ADDED. O2 INCREASED DUE TO WHEN WORKING WITH THERAPY O2 SAT DROPPED. RT AND DRS NOTIFIED. RT INCREASED O2 TO 10L/NC AND THEN SAID SHE WOULD TITRATE O2 DOWN PATIENT WAS ABLE TO TOLERATE. HAS NONPRODUCTIVE COUGH. DENIED NEED FOR PAIN MEDICATION. CONTINENT OF BOWEL AND BLADDER. USES CALL LIGHT FOR ASSIST. FALL PRECAUTIONS IN PLACE, BED ALARM AND CHAIR ALARM USED.
[2021-04-26 20:09] VITALS: BP 104/30
[2021-04-27 07:52] VITALS: BP 117/74
--- NOTE | 2021-04-27 17:02 | NUR ---
PT UP WITH GAIT BELT AND WALKER X1 ASST. PT DID COMPLETE ALL THERAPY. PT IS A&O X4. PT DOES HAVE DRY COUCH. PT REFUSED STOOL SOFTNER, DID BM X2. BARRIER CREAM APPLIED. PT IS ON 8L 02 AND 02 AT REST IS 95%. NO COMPLAINTS OF PAIN. DAUGHTER AT BEDSIDE AND PT IS RESTING WITH CALL LIGHT IN REACH AND FALL PRECAUTIONS IN PLACE.
[2021-04-27 20:09] VITALS: BP 120/39
--- NOTE | 2021-04-28 06:48 | NUR ---
ASSUMED PT CARE AT 1930. ASSESSMENT COMPLETED CHARTED. ABLE TO MAKE NEEDS KNOWN. UP WITH 1 ASSIST. NO C/O PAIN OR DISCOMFORT. RESTING IN BED ALL NIGHT. WILL CONTINUE TO MONITOR.
[2021-04-28 07:43] VITALS: BP 146/52
--- NOTE | 2021-04-28 14:30 | NUR ---
PT UP WITH GAIT BELT AND WALKER AND 1 X ASST. PT ON 8L 02 WITH O2 STAT 93 TO 95% . PT HAS WET COUGH AND IS STARTING TO COUGH UP [facility] SENT MSG TO DR. ENCISO NEW ORDER FOR MUCINEX 600MG BID. PT IS RESTING IN ROOM WITH CALL LIGHT IN REACH AND FALL PRECAUTIONS IN PLACE.
[2021-04-28 20:08] VITALS: BP 107/34
--- NOTE | 2021-04-29 06:46 | NUR ---
ASSUMED PT CARE AT 1930. ASSESSMENT COMPLETED CHARTED. ABLE TO MAKE NEEDS KNOWN. RESTING IN BED ALL NIGHT. REDUCED O2 BY 1L TONIGHT TO 7L. NO SOA. NO PAIN OR DISCOMFORT. WILL CONTINUE TO MONITOR.
[2021-04-29 07:45] VITALS: BP 125/39
[2021-04-29 12:08] VITALS: BP 82/31
[2021-04-29 12:09] VITALS: BP 100/28
[2021-04-29 12:43] VITALS: BP 111/43
--- NOTE | 2021-04-29 14:49 | NUR ---
1200 ACCUCHECK READING HI, CHECKED X2. LAB ORDERED. [address] HERE AND NOTIFIED. 1208 V/S BP82/31 CHECKED X2 WHILE SITTING. LAIDED DOWN IN RECLINER BP100/28. PATIENT ALERT AND ORIENTED AND STATED FEELING OK. O2 SAT MID TO LOW 80'S ON O2 AT 5L/NC. O2 INCREASED UP TO 7L/NC. 1215 LAB DRAWN. NURSING NETWORK RELAY TESTER NOTIFIED. 1225 MESSAGE SENT URGENT TO 1230 INSULIN 20 UNITS GIVEN. 1243 SITTING B/P 111/43, CALLED AND LEFT STAT MESSAGE REGARDING CRITICAL LAB RESULTS OF BLOOD SUGAR 609. O2 SAT 90-91% WITH 7L/NC, 1245 PATIENT ATE 50% OF LUNCH. 1310 ACCUCHECK RECHECK STILL HI. 1325 MESSAGE AGAIN SENT URGENT TO DRClaudine 1355 DR RETURNED CALL WITH NO NEW ORDERS OTHER THAN TO JUST WATCH PATIENT AT THIS TIME. 1450 DR HERE TO SEE PATIENT, NO NEW ORDERS.
--- NOTE | 2021-04-29 17:09 | NUR ---
ALERT AND ORIENTED X4. UP WITH 1 ASSIST, GAIT BELT AND WALKER. DENIES NEED FOR PAIN MEDICATION. CONTNENT OF BOWEL AND BLADDER. DR NOTIFIED OF LOW B/P AND HIGH BLOOD SUGARS EARLIER TODAY. DR HERE TO SEE PATIENT,NO NEW ORDERS. CONTINUEING TO MONITOR PATIENT. O2 INCREASED BACK UP TO 7L/NC TO KEEP O2 SATS IN 90'S. TAKES PILLS WITHOUT DIFFICULTY. USES CALL LIGHT FOR ASSIST. FALL PRECAUTIONS IN PLACE.
[2021-04-29 17:15] VITALS: BP 95/38
[2021-04-29 19:00] VITALS: BP 115/43
--- NOTE | 2021-04-30 05:19 | NUR ---
ASSUMED CARES AT 1920. ALERT AND ORIENTED. PLEASANT. DENIED ANY PAIN. O2 7L NC. MOD ASSIST WITH GAIT BELT AND WALKER. UP TO BSC. SLEPT WELL. CALL LIGHT IN REACH AND BED ALARM ON.
[2021-04-30 07:20] VITALS: BP 148/58
--- NOTE | 2021-04-30 14:57 | NUR ---
CM COMPLETED INITIAL ASSESSMENT FOR REHAB UNIT. PT LIVES ALONE, OF EARLY APRIL, D/T HER SPOUSE "DYING WITH COVID ON APR 08...AT [facility]." PT DTRS CHECK UP ON HER FREQUENTLY. PT USES CANE. INDEPENDENT WITH ADLS. HAS ONE STEP TO ENTER HOME AND NONE INSIDE OF HOME. PT HAS HX WITH [facility]. CM EDU PT ON TEAM CONFERENCE AND CM ROLE. PT NOR DTREZ HAVE QUESTION FOR TOMORROW'S TEAM CONFERENCE.
--- NOTE | 2021-04-30 18:11 | NUR ---
PATIENT COMPLETED THERAPIES THIS SHIFT ORDERED. UP WITH ASSISTANCE, GAIT BELT AND WALKER WITH 02. DR. DUKES NOTIFIED OF ELEVATED GLUCOSE TODAY. PER ORDERS PATIENT TO HAVE INSULIN WITH MEALS AND NO INSULIN AT HS. PATIENT AWARE OF NEW PLAN OF CARE. AM LABS AND TEAM MEETING TOMORROW.
[2021-04-30 19:00] VITALS: BP 103/40
[2021-05-01 04:08] VITALS: BP 120/44
[2021-05-01 04:33] LABS: HEMATOCRIT 26.1 % (37.0-47.0); HEMOGLOBIN 8.5 gm/dL (12.0-15.0); MCH 28.5 pg (26.0-34.0); MCHC 32.5 g/dL (28.0-37.0); MCV 87.8 fL (80.0-100.0); MPV 8.7 fl. (7.2-11.1); RBC 2.97 mil/uL (4.20-5.00); RDW-CV 13.1 % (10.5-14.5)
[2021-05-01 05:13] LABS: CALCIUM 8.4 mg/dL (8.5-10.1); CREATININE 0.9 mg/dL (0.6-1.3); POTASSIUM 4.5 mmol/L (3.5-5.1)
--- NOTE | 2021-05-01 06:03 | NUR ---
ASSUMED CARES AT 1920. ALERT AND ORIENTED. PLEASANT. DENIED ANY PAIN. O2 7L NC. MIN ASSIST WITH GAIT BELT AND WALKER. UP TO BSC. ACCUCHECK AT HS 351. PT'S BEDTIME INSULIN HAD BEEN D/C'D EARLIER IN THE DAY. PAGED DR TAYLOR, ORDER FOR MODERATE S/S INSULIN ACHS. LISPRO 20 UNITS GIVEN PER S/S. PT HAD HS SNACK WELL. THIS AM, RECEIVED CALL OF CRITICAL GLUCOSE LAB 32. TWO JUICES GIVEN. PAGED DR TAYLOR WITH CRITICAL RESULTS. RECHECK BLOOD SUGAR WAS 120. PT FEELING BETTER. PT RESTING QUIETLY AT THIS TIME. CALL LIGHT IN REACH AND BED ALARM ON.
[2021-05-01 07:30] VITALS: BP 141/55
--- NOTE | 2021-05-01 15:54 | NUR ---
Case and plan of care reviewed with MD each weekday during patient's length of stay. Continue plan of care per MD orders for current dx. Pt will be reteamed in one week for continued rehab needs. CM will continue to follow for discharge planning needs.
--- NOTE | 2021-05-01 16:38 | NUR ---
PATIENT COMPLETED THERPIES THIS SHIFT ORDERED. UP WITH ASSISTANCE, GAIT BELT AND WALKER. PATIENT ON 8L 02 WITH PORTABLE TANK, DESATS TO 88% AND TAKES A FEW MINUTES TO RECOVER WITH ACTIVITY. DR. DUKES NOTIFIED AND BREATHING TREATMENTS ORDERED. INSULIN DECREASED TO LDSS AND METFORMIN ADDED TO SCHED MEDS BID. VOIDING PER BSC, NO BM NOTED THIS SHIFT. WOUND NURSE NOTIFIED OF REDNESS TO COCCYX AT TOP OF BUTTOCKS CRACK, OINTMENT HAS BEEN APPLIED AND LOOKS IMPROVED TODAY. TEAM MEETING TODAY, PATIENT RETEAM.
[2021-05-01 19:58] VITALS: BP 105/38
[2021-05-02 07:42] VITALS: BP 118/42
--- NOTE | 2021-05-02 17:22 | NUR ---
PT IS UP WITH GAIT BELT AND WALKER . PT COULD NOT COMPLETE THERAPY TODAY , PT'S 02 LEVEL KEPT DROPPING. PT BACK UP TO 8L 02 STATING AT 91%. NOTIFIED DR CONTRERAS WHO ORDERED A CHEST XRAY AND CT.A 20 LUCA IV WAS PLACED IN RT AC, AND RT WRIST. CONSULT WAS CALLED TO DR SONI, SPOKE TO KELLY. PER DR CONTRERAS DC METFORMIN DUE TO FAMILY AND PATIENT REQUEST. PT IS RESTING WITH CALL LIGHT IN REACH AND FALL PRECAUTIONS IN PLACE.
[2021-05-02 20:00] VITALS: BP 111/64
[2021-05-03 04:11] LABS: HEMATOCRIT 27.1 % (37.0-47.0); HEMOGLOBIN 8.8 gm/dL (12.0-15.0); MCH 28.6 pg (26.0-34.0); MCHC 32.5 g/dL (28.0-37.0); MCV 87.9 fL (80.0-100.0); MPV 8.5 fl. (7.2-11.1); NUCLEATED RBCS 0 /100WBC; PLATELET COUNT* 183 thou/uL (150-400); RBC 3.08 mil/uL (4.20-5.00); RDW-CV 13.7 % (10.5-14.5); WBC 11.8 thou/uL (4.0-11.0)
[2021-05-03 04:26] LABS: ALBUMIN 2.8 g/dL (3.4-5.0); CALCIUM 8.5 mg/dL (8.5-10.1); MAGNESIUM 1.9 mg/dL (1.8-2.4); TOTAL BILIRUBIN 0.3 mg/dL (<0.1-1.0)
[2021-05-03 05:46] LABS: ABSOLUTE LYMPHOCYTES 0.2 thou/uL (0.8-5.3); ABSOLUTE MONOCYTES 0.2 thou/uL (0.0-1.2); ABSOLUTE NEUTROPHILS 11.3 thou/uL (1.6-8.1); ANISOCYTOSIS 1+; PLATELET ESTIMATE ADEQUATE; POIKILOCYTOSIS 1+
[2021-05-03 08:02] VITALS: BP 156/56
--- NOTE | 2021-05-03 09:48 | EKG ---
[place] [address] ELECTROCARDIOGRAM REPORT Name: NAVDEEP ARVIZU Room: [address] ADM IN .R.#: [id number] Admission: 04/25/21 Attend Phys: Cole Maxwell MD Discharge: Date of : 39 Date of Service: 05/03/21926 Report #: [id number] THIS REPORT FOR: //name// [facility] Test Date: 2021-05-03 Test Time: 09:27:51 Pat Name: NAVDEEP ARVIZU Department: Room: [address] Gender: F Speech Communication Instructor: : 1935 Requested By: Cole Maxwell Order Number: [id number] Reading MD: Roderick Bernal Measurements Intervals [place] Rate: 98 P: 0 MA: QRS: 258 QRSD: 129 T: 25 QT: 384 QTc: 491 Interpretive Statements Atrial-sensed ventricular-paced complexes with fusion noted No further rhythm analysis attempted due to paced rhythm Nonspecific IVCD with LAD Nonspecific T abnrm, anterolateral leads Baseline wander in lead(s) V2 Compared to ECG 04/10/2021 08:05:39 IVCD is less pronounced Electronically Signed On 05-03-2021 9:47:57 CDT by Roderick Bernal [email or web address] <ELECTRONICALLY SIGNED> By: Roderick Bernal MD, [facility] 05/03/21946 6 6 Roderick Bernal MD, [facility] /EPI
--- NOTE | 2021-05-03 15:30 | NUR ---
PT UP WITH GAIT BELT AND WALKER. PT DO NOT COMPLETE ANY THERAPY TODAY. PT WAS SOA AND 02 WAS 92 ON 8L, ON GETTING UP 02 DROPS TO 87/88 EVEN 82% . PT POTASSIUM WAS 6.[address] CONTRERAS WAS NOTIFIED, EKG WAS DONE, AND LAB RE DRAW FOR POTASSIUM WHICH WAS 4.8 AT 10:00AM . THERAPY WAS HELD TODAY AND WILL START AGAIN ON LOW THERAPY TOMM. PT HAS NO COMPLAINTS OF PAIN.AND IS RESTING WITH CALL LIGHT IN REACH AND FALL PRECAUTIONS IN PLACE,
[2021-05-03 20:04] VITALS: BP 120/51
--- NOTE | 2021-05-04 05:57 | NUR ---
Pt spent first part of shift sitting up in chair watching tv. Slept through the night. Still dyspneic with exertion, but did not complain of SOB. Did not ask for PRN meds.
[2021-05-04 08:30] VITALS: BP 115/36
[2021-05-04 10:58] LABS: CALCIUM 8.3 mg/dL (8.5-10.1); POTASSIUM 5.5 mmol/L (3.5-5.1)
--- NOTE | 2021-05-04 16:45 | NUR ---
ALERT AND ORIENTED X4. UP WITH 1 ASSIST,GAIT BELT, O2 AND WALKER. O2 INCREASED TO 10L/NC WHEN UP WITH THERAPIES TO KEEP O2 SATS MID 80'S OR ABOVE. WHEN AT REST O2 SAT DECREASED BACK DOWN TO 8L/NC AND O2 SAT RECHECK WAS 94%/NC DENIES PAIN. USES CALL LIGHT FOR ASSIST. FALL PRECAUTIONS IN PLACE, BED ALARM AND CHAIR ALARM USED.
[2021-05-04 19:00] VITALS: BP 100/44
--- NOTE | 2021-05-05 05:30 | NUR ---
PATIENT IN RECLINER AT BEGINNING OF SHIFT. PT UP TO BSC WITH USE OF WALKER AND G.BELT. PT DID VERY WELL. PT ABLE TO REMOVE AND PULL UP PANTS WITH VERY MINIMAL ASSIST. PT AMBULATED TO BED. PT ON O2 @ 8LITERS PER HIGH FLOW CANNULA. O2 INCREASED TO 10LITERS WITH AMBULATION. PT DENIES NEEDS AT THIS TIME. FREQUENTLY USED ITEMS AND CALL LIGHT WITHIN REACH. SIDERAILS UPX3 AND BED ALARM ON. WILL CONTINUE TO MONITOR.
[2021-05-05 06:03] LABS: ABSOLUTE LYMPHOCYTES 0.2 thou/uL (0.8-5.3); ABSOLUTE MONOCYTES 0.4 thou/uL (0.0-1.2); ABSOLUTE NEUTROPHILS 10.7 thou/uL (1.6-8.1); BASOPHILS 0.1 %; HEMATOCRIT 25.6 % (37.0-47.0); HEMOGLOBIN 8.4 gm/dL (12.0-15.0); LYMPHOCYTES 1.8 %; MCH 28.8 pg (26.0-34.0); MCHC 32.9 g/dL (28.0-37.0); MCV 87.4 fL (80.0-100.0); MONOCYTES 3.4 %; MPV 8.5 fl. (7.2-11.1); NUCLEATED RBCS 0 /100WBC; PLATELET COUNT* 203 thou/uL (150-400); POLYS 94.7 %; RBC 2.93 mil/uL (4.20-5.00); RDW-CV 13.9 % (10.5-14.5); WBC 11.3 thou/uL (4.0-11.0)
[2021-05-05 06:34] LABS: ALBUMIN 2.6 g/dL (3.4-5.0); CALCIUM 8.6 mg/dL (8.5-10.1); CREATININE 0.9 mg/dL (0.6-1.3); MAGNESIUM 1.9 mg/dL (1.8-2.4); PHOSPHORUS* 4.2 mg/dL (2.5-4.9); POTASSIUM 5.4 mmol/L (3.5-5.1); TOTAL BILIRUBIN 0.3 mg/dL (<0.1-1.0); TOTAL PROTEIN 5.8 g/dL (6.4-8.2)
[2021-05-05 07:40] VITALS: BP 128/62
--- NOTE | 2021-05-05 16:46 | NUR ---
ALERT AND ORIENTED X4. UP WITH STAND BY ASSIST, GAIT BELT AND WALKER TO BEDSIDE COMMODE OR RECLINER. GETS SOA WITH ANY ACTIVITY. O2 INCREASED FROM 8L/HFC TO 10L/HFC WITH ACTIVITIES TO KEEP O2 SATS IN 80'S. DR NOTIFIED OF POTASSIUM LEVEL FOR LAST FEW DAYS AND NEW ORDER NOTED. TAKES PILLS WITHOUT DIFFICULTY. USES CALL LIGHT FOR ASSIST. FALL PRECAUTIONS IN PLACE.
[2021-05-05 20:00] VITALS: BP 124/66
[2021-05-06 05:01] LABS: CALCIUM 8.1 mg/dL (8.5-10.1); CREATININE 0.9 mg/dL (0.6-1.3); POTASSIUM 4.5 mmol/L (3.5-5.1)
--- NOTE | 2021-05-06 05:59 | NUR ---
PATIENT SAT IN RECLINER UNTIL 2229 THEN WENT TO BED. PT UP WITH G.BELT AND WALKER. PT DOES VERY WELL AMBULATING. PT ABLE TO REPOSITION HERSELF IN BED. PT HAD TWO LARGE BOWEL MOVEMENTS DURING THIS SHIFT. PT ON HIGH FLOW @ 7LITERS WITH SATS AT 95% THIS MORNING. PT DENIES NEEDS AT THIS TIME. FREQUENTLY USED ITEMS AND CALL LIGHT WITHIN REACH. SIDERAILS UPX3 AND BED ALARM ON. WILL CONTINUE TO MONITOR.
[2021-05-06 07:40] VITALS: BP 148/46
--- NOTE | 2021-05-06 16:56 | NUR ---
ALERT AND ORIENTED X4. UP WITH STAND UP ASSIST, GAIT BELT AND WALKER. O2 STARTED AT 7L/HFC AND INCREASED UP TO 10L/HFC WITH ANY ACTIVITY. HAS BILATERAL LOWER EXTREMITY EDEMA. DR NOTIFIED AND DOPPLER DONE ORDERED AND NORMAL. LUNG SOUNDS REMAIN COARSE WITH SOME CRACKLES. USES CALL LIGHT FOR ASSIST. FALL PRECAUTIONS IN PLACE. TAKES PILLS WITHOUT DIFFICULTY.
[2021-05-06 20:00] VITALS: BP 130/41
--- NOTE | 2021-05-07 04:24 | NUR ---
ASSUMED PT CARE AT 1930. PT ALERT AND ORIENTED X4, POLITE AND COOPERATIVE WITH CARES. PT SITTING UP IN RECLINER AT SHIFT CHANGE, TRANSFERS WITH MIN ASSIST, GAIT BELT AND WALKER. UP TO BSC TO VOID. NO STOOL THIS SHIFT. ON 9L/HFC UP TO 10L/HFC WITH ACTIVITY. BLE EDEMA. TURNS SELF IN BED. TAKES PILLS WHOLE WITHOUT DIFFICULTY. DENIES PAIN. CALL LIGHT IN REACH, BED ALARM ON FOR SAFETY. HOURLY ROUNDING IN PROGRESS, WILL CONTINUE TO MONITOR.
[2021-05-07 06:08] LABS: CALCIUM 8.1 mg/dL (8.5-10.1); CREATININE 0.8 mg/dL (0.6-1.3); MAGNESIUM 2.2 mg/dL (1.8-2.4); POTASSIUM 4.5 mmol/L (3.5-5.1)
[2021-05-07 07:30] VITALS: BP 140/48
--- NOTE | 2021-05-07 17:01 | NUR ---
PATIENT COMPLETED THERAPIES THIS SHIFT ORDERED. UP WITH ASSISTANCE OF GAIT BELT AND WALKER/02. PATIENT DESATS FROM 10L HF DURING THERAPY, PATIENT ABLE TO RECOVER OVER 1-2 MINUTES. PATIENT UTILZIING BSC FIRST PART OF SHIFT, PATIENT DID AMBULATE TO BATHROOM THIS AFTERNOON. PATIENT NOTED TO BE MORE SOA AFTER AMBULATING TO BATHROOM. 02 SAT ON 10L HF WAS 75% AT THE LOWEST AND MID 80'S AT THE HIGHEST. RT HERE FOR TREATMENT AND INCREASED 02 NEEDS TO 15L HF. PATIENT SATTING 91-92%. DR. CAMPOS PAGED AT THAT TIME BUT NO RESPONSE. DR. DUKES WAS NOTIFIED AND ORDERS FOR CXR. CXR RESULTS SENT VIA YOU CALL TO DR. DUKES AND NO NEW ORDERS RECEIVED. DR. DENG HERE THIS EVENING AND NOTIFIED OF 02 NEEDS AND CXR RESULTS, STATED WILL PUT ORDERS IN. BM NOTED THIS SHIFT.INSULIN GIVEN WITH MEALS WHEN REQUIRED. AM LABS ORDERED AND TEAM MEETING TOMORROW.
[2021-05-07 19:00] VITALS: BP 136/43
--- NOTE | 2021-05-08 04:57 | NUR ---
ASSUMED PT CARE AT 1930. PT ALERT AND ORIENTED X4, POLITE AND COOPERATIVE WITH CARES. PT SITTING UP IN RECLINER AT SHIFT CHANGE, PREFERS TO STAY UP LATE. ON 15L HFC, SATS 94% PT UP TO BSC TO VOID SEVERAL TIMES WITH MIN ASSIST, GAIT BELT AND WALKER. BLOOD SUGAR 405 AT 2100, 20 UNITS OF HUMALOG GIVEN PER MAR. DR. TAYLOR ADVISED, NO NEW ORDERS. BEDTIME SNACK PROVIDED. PT SLEPT WELL OVERNIGHT. NO C/O PAIN. CALL LIGHT IN REACH, BED ALARM ON FOR SAFETY. HOURLY ROUNDING IN PROGRESS, WILL CONTINUE TO MONITOR.
[2021-05-08 05:26] LABS: HEMATOCRIT 23.6 % (37.0-47.0); HEMOGLOBIN 7.7 gm/dL (12.0-15.0); MCHC 32.9 g/dL (28.0-37.0); MCV 88.3 fL (80.0-100.0); MPV 8.5 fl. (7.2-11.1); NUCLEATED RBCS 0 /100WBC; PLATELET COUNT* 211 thou/uL (150-400); RBC 2.67 mil/uL (4.20-5.00); RDW-CV 14.5 % (10.5-14.5); WBC 8.7 thou/uL (4.0-11.0)
[2021-05-08 05:51] LABS: ALBUMIN 2.3 g/dL (3.4-5.0); CALCIUM 8.1 mg/dL (8.5-10.1); CREATININE 0.8 mg/dL (0.6-1.3); POTASSIUM 4.6 mmol/L (3.5-5.1); TOTAL BILIRUBIN 0.3 mg/dL (<0.1-1.0); TOTAL PROTEIN 5.5 g/dL (6.4-8.2)
[2021-05-08 05:56] LABS: ABSOLUTE LYMPHOCYTES 0.4 thou/uL (0.8-5.3); ABSOLUTE MONOCYTES 0.2 thou/uL (0.0-1.2); ABSOLUTE NEUTROPHILS 8.1 thou/uL (1.6-8.1); ANISOCYTOSIS 1+; PLATELET ESTIMATE ADEQUATE; POIKILOCYTOSIS 1+
[2021-05-08 07:56] VITALS: BP 151/58
--- NOTE | 2021-05-08 18:08 | NUR ---
Case and plan of care reviewed with MD each week during patient's length of stay. Continue plan of care per MD orders for current dx. Length of endurance decreased due to desats with activity. Guidelines from given to team. Spoke to pt prior to team meeting, she voiced no concerns or questions. Called and spoke to Dtr Lisa, who is very concerned and anxious about mom. She shared not getting the communication from team that she feels is needed. After allowing her to vent frustrations since admissions came up with what she feels is needed. She would like to have face to face meetings with Dr Maxwell, stated she is seeing pulmonary and hospitalist intermittently when they round on weekends. She would like Rehab nurse to call her with updates and requested these calls happend or Thursday. CM will continue to update weekly and would take these request to team meeting. Dr Maxwell stated she can see him each week following team meeting. Other days cannot quarantee exact time. Nurses shared dtr can call anytime she has questions or concerns. Will call daughter tomorrow and update her on communication plan.
--- NOTE | 2021-05-08 18:35 | NUR ---
PT UP WITH GAIT BELT AND WALKER. PT DID COMPLETE THERAPY. PT ON 15L 02. 02 STAT WAS 99% LAYING DOWN THIS AM, FALLS TO 90% WHEN SITTING UP. PT HAS NO COMPLAINTS OF PAIN. PT DOES HAVE +2 EDEMA IN BOTH ANKLES. PT HAS IV IN RT AC. PT ALERT X4. DR AMAYA DID ADD INSULIN OF [address] AMAYA ALSO WANTED PT TO TAKE METFORMIN ER. PT AND DAUGHTER REFUSED. DAUGHTER IS AT BEDSIDE AND PT IS RESTING WITH CALL LIGHT AND FALL PRECAUTIONS IN PLACE.
[2021-05-08 19:00] VITALS: BP 128/54
--- NOTE | 2021-05-09 04:44 | NUR ---
ASSUMED PT CARE AT 1930. PT ALERT AND ORIENTED X4, POLITE AND COOPERATIVE WITH CARES. SITTING UP IN RECLINER AT SHIFT CHANGE, LIKES TO STAY UP UNTIL AFTER THE NEWS. TRANSFERS WITH MIN ASSIST, GAIT BELT AND WALKER. UP TO BSC TO VOID. NO STOOL THIS SHIFT. ON 15L HFC. BLE EDEMA. TURNS SELF IN BED. TAKES PILLS WHOLE WITHOUT DIFFICULTY. DENIES PAIN. CALL LIGHT IN REACH, BED ALARM ON FOR SAFETY. HOURLY ROUNDING IN PROGRESS, WILL CONTINUE TO MONITOR.
[2021-05-09 05:03] LABS: ABSOLUTE LYMPHOCYTES 0.2 thou/uL (0.8-5.3); ABSOLUTE MONOCYTES 0.5 thou/uL (0.0-1.2); ABSOLUTE NEUTROPHILS 8.5 thou/uL (1.6-8.1); BASOPHILS 0.3 %; EOSINOPHILS 0.1 %; HEMATOCRIT 25.4 % (37.0-47.0); HEMOGLOBIN 8.2 gm/dL (12.0-15.0); LYMPHOCYTES 2.6 %; MCH 28.6 pg (26.0-34.0); MCHC 32.3 g/dL (28.0-37.0); MCV 88.6 fL (80.0-100.0); MONOCYTES 5.7 %; MPV 8.7 fl. (7.2-11.1); NUCLEATED RBCS 0 /100WBC; PLATELET COUNT* 217 thou/uL (150-400); POLYS 91.3 %; RBC 2.86 mil/uL (4.20-5.00); RDW-CV 14.5 % (10.5-14.5); WBC 9.4 thou/uL (4.0-11.0)
[2021-05-09 05:18] LABS: ALBUMIN 2.2 g/dL (3.4-5.0); ALKALINE PHOSPHATASE 119 U/L (46-116); ANION GAP < 0 mmol/L (7-16); BUN 43 mg/dL (7-18); CALCIUM 8.3 mg/dL (8.5-10.1); CHLORIDE 105 mmol/L (98-107); CO2 39 mmol/L (21-32); CREATININE 0.7 mg/dL (0.6-1.3); GLUCOSE 99 mg/dL (70-99); POTASSIUM 4.8 mmol/L (3.5-5.1); SGOT 14 U/L (15-37); SGPT 22 U/L (30-65); SODIUM 143 mmol/L (136-145); TOTAL BILIRUBIN 0.3 mg/dL (<0.1-1.0); TOTAL PROTEIN 5.6 g/dL (6.4-8.2)
[2021-05-09 07:22] VITALS: BP 133/41
--- NOTE | 2021-05-09 12:10 | NUR ---
9:05 Called rebeccaUna today as requested by her at work # [phone] and left VM. 9:15 Called RebeccaUna on her Cell [phone], and spoke to her, she was off work today. Shared update on her requests for face to face meetings with Dr Rowland. Dr Rowland recommended Thursday,after team meetings will meet with her and pt after team. Notified Dtr team meeting starts at 11:30 and over last two weeks between 12:30 and 12:45. Floor nurses asked that she call them for updates, they are available 30/03, as they don't routinely call weekly updates. Dtr asked "do you know who I am" in a very demanding tone, Cm claried yes I did. She verbalized she was insulted being told this. Discussion continued another 25 min and final outcome was that she didn't want to wait until next Thursday. CM suggested I could notify physicians today that she wanted to speak with them directly and futher asked that they call Thursday. Dtr stated needed to speak with Pulm about increasing O2 need. Dr Maxwell about ongoing course of care, and Hospitalist about ordering Metformin when she clear notified park naturalist pt can't take due to GI issues it causes. Dtr further stated that she spoke to RN yesterday and RN had reported she reminded of Dtr wishes and felt extended release version would not cause these issues and wanted to trail it. Dtr verbalized very unhappy about this. Updated Katherine/JAISONU of conversation and requests by Dtr. Each Dr notified via text directly to them with Dtr phone numbers and of her request to speak with them.
--- NOTE | 2021-05-09 15:11 | NUR ---
PT UP WITH GAIT BELT AND WALKER. PT DID COMPLETE ALL THERAPY. PT NOW ON 12 L 02 AT 96%. PT HAS NO COMPLAINTS OF PAIN. PT RESTING WITH FEET UP AND CALL LIGHT IN REACH AND FALL PRECAUTIONS IN PLACE.
[2021-05-09 20:05] VITALS: BP 121/36
--- NOTE | 2021-05-10 05:11 | NUR ---
ASSUMED PT CARE AT 1930. PT ALERT AND ORIENTED X4, SITTING UP IN RECLINER AT SHIFT CHANGE. PT PREFERS TO GO TO BED AFTER THE CONCLUSION OF THE NEWS. ON 10L HFC. PT TRANSFERRED TO BSC TO VOID WITH MIN ASSIST OF ONE, GAIT BELT AND WALKER. PT TAKES PILLS WHOLE WITH WATER WITHOUT DIFFICULTY. HS BLOOD SUGAR 257, INSULINS GIVEN PER NOV. PT UP ONCE TO VOID PER BSC, DESATTED TO THE MID 80'S. OXYGEN RAISED TO 15L HFC FOR APPROXIMATELY ONE HOUR AND REDUCED TO 10L HFC UPON SAT RECHECK AT 98%. SPUTUM SAMPLE TO LAB. PT SLEPT WELL OVERNIGHT. USES CALL LIGHT APPROPRIATELY. CALL LIGHT IN REACH, BED ALARM ON FOR SAFETY. HOURLY ROUNDING IN PROGRESS, WILL CONTINUE TO MONITOR.
[2021-05-10 07:58] VITALS: BP 138/51
[2021-05-10 08:31] LABS: HEMATOCRIT 26.4 % (37.0-47.0); HEMOGLOBIN 8.7 gm/dL (12.0-15.0); MCHC 32.8 g/dL (28.0-37.0); MCV 88.6 fL (80.0-100.0); MPV 8.6 fl. (7.2-11.1); RBC 2.98 mil/uL (4.20-5.00); RDW-CV 14.4 % (10.5-14.5); WBC 10.7 thou/uL (4.0-11.0)
[2021-05-10 08:35] LABS: CALCIUM 8.4 mg/dL (8.5-10.1); CREATININE 0.8 mg/dL (0.6-1.3); POTASSIUM 4.9 mmol/L (3.5-5.1)
--- NOTE | 2021-05-10 16:29 | NUR ---
PLAN TO RE-TEAM TO THE PT. PT PROGRESSING WELL TOWARDS GOALS. CM WILL REMAIN AVAILABLE TO ASSIST AND FOLLOW NEEDED.
--- NOTE | 2021-05-10 16:32 | NUR ---
PT WORKED WITH THERAPIES. UP WITH STB ASSIST. O2 15L NC. PT REPORTED FEELING SOA AFTER COUGHING. O2 SAT 75%. RECOVERED AFTER A MINUTE TO 90%. DR AMAYA NOTIFIED. DR CAMPOS HERE TO SEE PT. SPUTUM CX RESULTS SHOW GRAM + COCCI. DR CAMPOS NOTIFIED OF RESULTS. DR SHELLEY SPOKE WITH PT'S DAUGHTER, ANGEL TODAY. CALL LIGHT IN REACH. FALL PRECAUTIONS IN PLACE.
[2021-05-10 20:05] VITALS: BP 120/52
[2021-05-11 04:11] LABS: ANION GAP < 0 mmol/L (7-16); BUN 45 mg/dL (7-18); CALCIUM 8.2 mg/dL (8.5-10.1); CHLORIDE 106 mmol/L (98-107); CO2 37 mmol/L (21-32); CREATININE 0.7 mg/dL (0.6-1.3); GLUCOSE 71 mg/dL (70-99); MAGNESIUM 1.8 mg/dL (1.8-2.4); POTASSIUM 4.9 mmol/L (3.5-5.1); SODIUM 142 mmol/L (136-145)
--- NOTE | 2021-05-11 06:18 | NUR ---
PATIENT IN RECLINER AT BEGINNING OF SHIFT. PT DENIES PAIN. PT ON HIGH FLOW CANNULA AT 15LITERS. PT DESATS WITH ANY EXERTION. PT WITH EDEMA ON LOWER EXTREMITIES. PT DENIES NEEDS AT THIS TIME. FREQUENTLY USED ITEMS AND CALL LIGHT WITHIN REACH. SIDERAILS UP AND BED ALARM ON. WILL CONTINUE TO MONITOR.
[2021-05-11 08:00] VITALS: BP 132/53
--- NOTE | 2021-05-11 15:33 | NUR ---
PT UP WITH GAIT BELT AND WALKER. PT DID COMPLETE THERAPY TODAY. PT ON 15 L 02 THIS AM. PER V/O PT WHEN RESTING SHOULD BE ON 10L 02. WHEN UP CAN BE ON 15L 02. PT HAS IV TO RT AC. PT REFUSED TO WEAR JAHAIRA HOSE DUE TO THEY CAUSE PAIN. PT HAD FALL TODAY AT 1325. OT LONI STATED OT PUT PT ON COMMODE GAVE PT CALL LIGHT AND STEPPED OUT, WENT BACK IN RM AND PT WAS ON THE FLOOR, THE PT STATED SHE JUST WANTED TO WIPE HERSELF SO DID NOT PUSH CALL LIGHT. VS WERE TAKEN, PT HAS A SKIN TEAR TO RT HAND AND RT FOREARM AND A BRUISE AND BUMP ON FOREHEAD. DR AMAYA AND KARSTEN WERE NOTIFIED. DAUGHTER ANGEL REYNOSO WAS NOTIFIED. PT HAD CT OF HEAD. SKIN TEARS WERE CLEANED AND WRAPPED. ICE PROVIDED FOR HEAD. PT HAS NO COMPLAINTS OF PAIN. PT IS RESTING WITH CALL LIGHT IN REACH AND FALL PRECAUTIONS IN PLACE.
[2021-05-11 20:00] VITALS: BP 136/53
--- NOTE | 2021-05-11 20:45 | NUR ---
SITTING UP IN A RECLINER WITH LEGS ELEVATED. 3+ LEFT ANKLE EDEMA AND 2+ RIGHT ANKLE EDEMA NOTED. 02 HIGH FLOW NASAL CANNULA AT 10 LITERS. SNACK PROVIDED. CALL LIGHT WITHIN REACH.
--- NOTE | 2021-05-12 05:40 | NUR ---
RESTED QUIETLY. UP TO BEDSIDE COMMODE THIS MORNING TO VOID. TRANSFERRED TO RECLINER PER PATIENT'S REQUEST. LEGS ELEVATED. PATIENT WORE NON REBREATHER WITH 02 AT 15 LITERS FOR ABOUT 15 MINUTES FOR COMPLAINT OF SHORTNESS OF BREATH PRIOR TO SWITCHING BACK TO 10 LITERS HIGH FLOW NASAL CANNULA. HOURLY ROUNDING IN PROGRESS.
[2021-05-12 07:59] VITALS: BP 127/43
--- NOTE | 2021-05-12 18:51 | NUR ---
PT IS UP WITH GAIT BELT AND WALKER. PT HAS BRUISE ON FOREHEAD AND SKIN TEAR TO RT HAND AND RT FOREARM. PT HAS 20G IV IN RT AC. PT HAS NOT COMPLAINED OF PAIN PT IS ON 15L HIGH FLOW . PT COMPLAINED OF SOA WHEN GETTING UP TO COMMODE 02 WAS 63 ON 15 L . NON RE KRYSTENER PLACED ON PT AT 15l . PT ONLY STATING IN THE 88 TO 89.PT DID COMPLAIN THAT SHE COULD NOT EAT MUCH AT LUNCH DUE TO BEING SOA. RT WAS CALLED PT IS NOW ON HEATED HIGH FLOW WAS ON 45L 75% STAT AT 92%. PT THEN COMPLAINED AGAIN ABOUT BEING SOA STAT WAS AGAIN IN 80"S . RT CAME BACK UP AND BUT IT UP TO 60L 90% STAT AT 94%. PT BS AT DINNER WAS 33 PT WAS GIVEN DRINKS AND FRUIT BS WENT UP TO 64 . THEN DID EAT ALITTLE DINNER WAS AT 204. NO INSULIN GIVEN .DR. AMAYA WAS NOTIFIED, WANTED A STAT X-RAY AND TO CALL DR KIRAN WHO IS CLIENT SERVICES ASSISTANT FOR [facility]. CALL MADE X-RAY PUT IN. PT IS RESTING WITH CALL LIGHT IN REACH AND FALL PRECAUTIONS IN PLACE.
[2021-05-12 19:15] VITALS: BP 123/57
--- NOTE | 2021-05-12 19:15 | NUR ---
SITTING UP IN RECLINER WITH LEGS ELEVATED. HAS 60 LITERS ON AND IS SATTING 93%. TUBIGRIPS ON BILATERALLY. EDEMA IN ANKLES APPEARS LESS THAN LAST NIGHT. CALL LIGHT WITHIN REACH.
--- NOTE | 2021-05-12 20:04 | NUR ---
DR. KIRAN RETURNED CALL. INFORMED DR. KIRAN OF CHEST X RAY RESULTS. DR. KIRAN STATES WILL BE ENTERING LABS. INFORMED NURSING UTILIZATION MANAGER, DANTE BHATTI OF PATIENT'S DECLINING STATUS AND THAT DR. KIRAN WAS GOING TO ORDER LABS.
[2021-05-12 20:48] LABS: BE 7.3 mmol/L (-2 to +3); PO2 78.1 mmHg (75.0-100.0); pH 7.431 (7.340-7.450)
[2021-05-12 20:53] LABS: PCO2 50.9 mmHg (35.0-45.0)
[2021-05-12 21:41] LABS: HEMATOCRIT 25.6 % (37.0-47.0); MCH 27.8 pg (26.0-34.0); MCHC 31.2 g/dL (28.0-37.0); MCV 89.3 fL (80.0-100.0); MPV 8.7 fl. (7.2-11.1); NUCLEATED RBCS 0 /100WBC; PLATELET COUNT* 216 thou/uL (150-400); RBC 2.87 mil/uL (4.20-5.00); RDW-CV 14.5 % (10.5-14.5); WBC 15.8 thou/uL (4.0-11.0)
[2021-05-12 22:06] LABS: ABSOLUTE LYMPHOCYTES 0.2 thou/uL (0.8-5.3); ABSOLUTE MONOCYTES 0.5 thou/uL (0.0-1.2); ABSOLUTE NEUTROPHILS 15.2 thou/uL (1.6-8.1)
[2021-05-12 22:07] LABS: PLATELET ESTIMATE ADEQUATE
[2021-05-12 22:08] LABS: ALBUMIN 2.2 g/dL (3.4-5.0); CALCIUM 8.3 mg/dL (8.5-10.1); CREATININE 1.1 mg/dL (0.6-1.3); POTASSIUM 5.6 mmol/L (3.5-5.1); TOTAL BILIRUBIN 0.3 mg/dL (<0.1-1.0); TOTAL PROTEIN 6.1 g/dL (6.4-8.2)
[2021-05-12 22:40] VITALS: BP 114/54
[2021-05-13 04:28] LABS: ABSOLUTE LYMPHOCYTES 0.2 thou/uL (0.8-5.3); ABSOLUTE MONOCYTES 0.5 thou/uL (0.0-1.2); ABSOLUTE NEUTROPHILS 12.3 thou/uL (1.6-8.1); BASOPHILS 0.1 %; HEMATOCRIT 25.3 % (37.0-47.0); HEMOGLOBIN 8.1 gm/dL (12.0-15.0); LYMPHOCYTES 1.6 %; MCH 28.6 pg (26.0-34.0); MCHC 32.1 g/dL (28.0-37.0); MONOCYTES 3.7 %; MPV 9.1 fl. (7.2-11.1); NUCLEATED RBCS 0 /100WBC; PLATELET COUNT* 208 thou/uL (150-400); POLYS 94.6 %; RBC 2.84 mil/uL (4.20-5.00); RDW-CV 14.3 % (10.5-14.5)
[2021-05-13 04:48] LABS: ALBUMIN 2.1 g/dL (3.4-5.0); CALCIUM 8.4 mg/dL (8.5-10.1); TOTAL BILIRUBIN 0.3 mg/dL (<0.1-1.0)
--- NOTE | 2021-05-13 05:37 | NUR ---
ABG'S AND LABS WERE DONE AND RESULTS REPORTED TO DR. HUTCHINSON. PATIENT GIVEN IV LASIX WITH GOOD RESULTS. JADE INSERTED AND OUTPUT WAS 1675ML. PATIENT WAS ON 100% AND 60 LITERS AT THE BEGINNING OF THE SHIFT. AFTER LASIX WAS GIVEN PATIENT'S BREATHING IMPROVED AND OXYGEN WAS DECREASED TO 55 LITERS AND 86%. PATIENT IS ON A CONTINUOUS OXGEN SATURATION MONITOR. PATIENT'S OXYGEN SATURATION WAS 92% MOST OF THE NIGHT. HOURLY ROUNDING IN PROGRESS.
[2021-05-13 07:46] VITALS: BP 108/46
[2021-05-13 11:51] VITALS: BP 108/46
[2021-05-13] MEDS ORDERED: PREDNISONE 20 M20 MG PO (13:41)
[2021-05-13] MEDS ORDERED: DULCOLAX STOOL100 M1 PO (14:02)
[2021-05-13] MEDS ORDERED: ZYVOX600 MG PO (14:04)
[2021-05-13] MEDS ORDERED: LEVOFLOXACIN750 MG PO (14:07)
[2021-05-13] MEDS ORDERED: LANTUS SUBQ (14:18)
[2021-05-13] MEDS ORDERED: HUMALOG100 UNIT/1 SUBQ ×2 (14:19→14:25)
[2021-05-13] MEDS ORDERED: LOVENOX40 MG/0.4 SUBQ (14:34)
[2021-05-13] MEDS ORDERED: IPRAT-ALBUT 0.5-3 ML INH (14:39)
[2021-05-13] MEDS ORDERED: PULMICORT0.5 MG/2 M INH (14:40)
[2021-05-13] MEDS ORDERED: BROVANA15 MCG/2 M INH (14:43)
[2021-05-13] MEDS ORDERED: MUCINEX600 MG PO (14:45)
--- NOTE | 2021-05-13 14:45 | NUR ---
PT ON HEATED HIGH FLOW 60L , PT HAS JADE 675 WAS OUT PUT AT 1500. PT HAS IV IN RT AC 20G. PT HAS SKIN TEAR X 2 ON RT HAND AND FOREARM FROM FALL ON 9-4 AND BRUISE TO FOREHEAD. PT BS AT 1200 WAS 404 24 UNITS OF INSULIN WAS GIVEN. PT DID HAVE BM TODAY. PT UNABLE TO COMPLETE THERAPY DUE TO SOB. IS RESTING IN BED WITH CALL LIGHT IN REACH AND FALL PRECAUTIONS IN PLACE.
[2021-05-13] MEDS ORDERED: FLEET ENEMA133 ML RECTAL (14:47)
[2021-05-13] MEDS ORDERED: MILK OF MA400 MG/5 M PO (14:48)
[2021-05-13] MEDS ORDERED: BISACODYL10 MG RECTAL (14:49)
[2021-05-13] MEDS ORDERED: MYLANTA MAXIMU355 ML PO (14:50)
[2021-05-13] MEDS ORDERED: TYLENOL PO (14:52)
[2021-05-13] MEDS ORDERED: AMBIEN5 MG PO (14:57)
[2021-05-13] MEDS ORDERED: [UNRECOGNIZED DRUG - OTHER] (14:58)
[2021-05-13] MEDS ORDERED: [UNRECOGNIZED DRUG - REMARK] (14:58)
== END 2021-05-13 15:50 | disposition short-term general hospital (02) | DRG 947 ==
LOC: M.REH 15:31
PROVIDERS: Family Medicine; Internal Medicine Critical Care Medicine; Pediatrics; ADMIT Physical Medicine & Rehabilitation; ATTEND Physical Medicine & Rehabilitation
PROC: 5A0935A Assistance with Respiratory Ventilation, Less than 24 Consecutive Hours, High Flow/Velocity Cannula (ICD-10-PCS; principal; 2021-04-28)
PROC: 5A0935A Assistance with Respiratory Ventilation, Less than 24 Consecutive Hours, High Flow/Velocity Cannula (ICD-10-PCS; 2021-04-30)
PROC: 5A0935A Assistance with Respiratory Ventilation, Less than 24 Consecutive Hours, High Flow/Velocity Cannula (ICD-10-PCS; 2021-05-01)
PROC: 5A0935A Assistance with Respiratory Ventilation, Less than 24 Consecutive Hours, High Flow/Velocity Cannula (ICD-10-PCS; 2021-05-02)
PROC: 5A0935A Assistance with Respiratory Ventilation, Less than 24 Consecutive Hours, High Flow/Velocity Cannula (ICD-10-PCS; 2021-05-03)
PROC: 5A0935A Assistance with Respiratory Ventilation, Less than 24 Consecutive Hours, High Flow/Velocity Cannula (ICD-10-PCS; 2021-05-06)
PROC: 5A0935A Assistance with Respiratory Ventilation, Less than 24 Consecutive Hours, High Flow/Velocity Cannula (ICD-10-PCS; 2021-05-07)
PROC: 5A0935A Assistance with Respiratory Ventilation, Less than 24 Consecutive Hours, High Flow/Velocity Cannula (ICD-10-PCS; 2021-05-08)
PROC: 5A0935A Assistance with Respiratory Ventilation, Less than 24 Consecutive Hours, High Flow/Velocity Cannula (ICD-10-PCS; 2021-05-09)
PROC: 5A0935A Assistance with Respiratory Ventilation, Less than 24 Consecutive Hours, High Flow/Velocity Cannula (ICD-10-PCS; 2021-05-10)
PROC: 5A09357 Assistance with Respiratory Ventilation, Less than 24 Consecutive Hours, Continuous Positive Airway Pressure (ICD-10-PCS; 2021-05-12)
PROC: 5A0935A Assistance with Respiratory Ventilation, Less than 24 Consecutive Hours, High Flow/Velocity Cannula (ICD-10-PCS; 2021-05-12)
DX: R53.81 Other malaise (principal); J12.82 Pneumonia due to coronavirus disease 2019; U07.1 COVID-19; J80 Acute respiratory distress syndrome; I10 Essential (primary) hypertension; E78.5 Hyperlipidemia, unspecified; D64.9 Anemia, unspecified; E03.9 Hypothyroidism, unspecified; E78.00 Pure hypercholesterolemia, unspecified; I35.0 Nonrheumatic aortic (valve) stenosis; E11.65 Type 2 diabetes mellitus with hyperglycemia; J98.2 Interstitial emphysema; T70.29XA Other effects of high altitude, initial encounter; X58.XXXA Exposure to other specified factors, initial encounter; Z88.1 Allergy status to other antibiotic agents; Z88.8 Allergy status to other drugs, medicaments and biological substances; Z90.49 Acquired absence of other specified parts of digestive tract; Z87.891 Personal history of nicotine dependence; Z91.19 Patient's noncompliance with other medical treatment and regimen

== ENCOUNTER 2021-05-13 16:14 | Inpatient (IN) | payer MEDICARE, OTHER ==
[~2021-05-13] VITALS: Ht 154.9 cm; Wt 65.8 kg
[2021-05-13 16:00] VITALS: BP 106/49
[~2021-05-13 16:14] MED LIST changes: +AMBIEN5 MG PO; +BISACODYL10 MG RECTAL; +BROVANA15 MCG/2 M INH; +DULCOLAX STOOL100 M1 PO; +FLEET ENEMA133 ML RECTAL; +HUMALOG100 UNIT/1 SUBQ; +IPRAT-ALBUT 0.5-3 ML INH; +LANTUS SUBQ; +LEVOFLOXACIN750 MG PO; +LOVENOX40 MG/0.4 SUBQ; +MUCINEX600 MG PO; +MYLANTA MAXIMU355 ML PO; +PREDNISONE 20 M20 MG PO; +PULMICORT0.5 MG/2 M INH; +TYLENOL PO; +ZYVOX600 MG PO; +[UNRECOGNIZED DRUG - OTHER]; +[UNRECOGNIZED DRUG - REMARK]
--- NOTE | 2021-05-13 19:44 | NUR ---
PT BROUGHT DOWN FROM REHAB TO BE ADMITTED TO THE UNIT FOR SOB AND ON 60LHIGH FLOW. PT HAS JADE CATH. PT HAS SWELLING IN HER JYOTI LE. PT RESTING ON HER BED, CALL LIGHT CLOSE. DAUGHTER CALLED TO CHECK ON PT AND STRESSED THAT HER BLOOD SUGARS ARE REALLY CRAZY ANYMORE HER BLOOD SUGAR CAN BE IN THE 404 THEN DROPPS TO 70 THEN 30. PLEASE WATCH THEM CLOSELY. PT ADMITTED FOR RESPIRATORY FAILURE. WILL CONTINUE TO MONITOR PLAN OF CARE.
[2021-05-13 20:00] VITALS: BP 116/49
[2021-05-14] VITALS: BP 117/43
--- NOTE | 2021-05-14 03:54 | NUR ---
PT ALERT ORIENTED. ON BR O2 AT 60 LITERS HIGH FLOW. LICENSED MASSAGE THERAPIST TRACING V PACED, AV PACED. KALIE HOUSTON DD.
[2021-05-14 04:00] VITALS: BP 103/41
[2021-05-14 08:30] VITALS: BP 94/47
[2021-05-14 12:00] VITALS: BP 122/49
[2021-05-14 12:44] LABS: CALCIUM 8.2 mg/dL (8.5-10.1); TOTAL BILIRUBIN 0.3 mg/dL (<0.1-1.0); TOTAL PROTEIN 5.9 g/dL (6.4-8.2)
[2021-05-14 16:08] VITALS: BP 125/59
--- NOTE | 2021-05-14 17:25 | NUR ---
PHYSICIAN INFORMS THAT THE PT IS NOT MEDCIALLY STABLE TO D/C TODAY. UNSURE IF PT WILL BE ABLE TO RETURN TO INPT ARU AT D/C. CM WILL REMAIN AVAILABLE TO ASSIST AND FOLLOW NEEDED.
[2021-05-14 20:00] VITALS: BP 121/47
[2021-05-15] VITALS: BP 126/50
--- NOTE | 2021-05-15 02:25 | NUR ---
PT ALERT ORIENTED. ABD SLIGHTLY DISTENDED. DENIES PAIN. BASTING PULLER TRACING V-PACED, AV-PACED. PT'S DAUGHTER CALLED UNIT TO ASK ABOUT CT. REASURANCE PROVIDED. PT WENT TO CAT SCAN AFTER MN. PT TRAVELED WITH RN ON 100%NRB MASK AND 15 LITERS HIGH FLOW NC. PT MAINTAINED O2 SATS IN THE UPPER 90S.
[2021-05-15 02:59] LABS: ABSOLUTE LYMPHOCYTES 0.1 thou/uL (0.8-5.3); ABSOLUTE MONOCYTES 0.1 thou/uL (0.0-1.2); ABSOLUTE NEUTROPHILS 9.9 thou/uL (1.6-8.1); BASOPHILS 0.2 %; HEMATOCRIT 23.7 % (37.0-47.0); HEMOGLOBIN 7.9 gm/dL (12.0-15.0); LYMPHOCYTES 1.1 %; MCH 29.3 pg (26.0-34.0); MCHC 33.5 g/dL (28.0-37.0); MCV 87.3 fL (80.0-100.0); MONOCYTES 0.6 %; MPV 8.4 fl. (7.2-11.1); NUCLEATED RBCS 0 /100WBC; PLATELET COUNT* 180 thou/uL (150-400); POLYS 98.1 %; RBC 2.71 mil/uL (4.20-5.00); RDW-CV 14.4 % (10.5-14.5); WBC 10.1 thou/uL (4.0-11.0)
[2021-05-15 03:15] LABS: ALBUMIN 1.8 g/dL (3.4-5.0); CALCIUM 7.6 mg/dL (8.5-10.1); MAGNESIUM 2.1 mg/dL (1.8-2.4); POTASSIUM 4.6 mmol/L (3.5-5.1); TOTAL BILIRUBIN 0.4 mg/dL (<0.1-1.0); TOTAL PROTEIN 5.5 g/dL (6.4-8.2)
[2021-05-15 04:00] VITALS: BP 104/55
[2021-05-15 04:51] LABS: PROTIME 10.9 Seconds (9.20-11.50)
[2021-05-15 08:00] VITALS: BP 104/55
[2021-05-15 12:00] VITALS: BP 118/62
[2021-05-15 16:00] VITALS: BP 110/41
--- NOTE | 2021-05-15 16:05 | NUR ---
JOIST SETTER TRACKING WITH NO CHANGE IN RHYTHM. REMAINS ON HF HEATED SAT LOW 90'S. FAMILY IN EARLIER TO VISIT. NO COMPLAINTS OF PAIN. TOLERATING DIET, CONDITION UNCHANGED. WILL CONTINUE WITH PLAN OF CARE.
--- NOTE | 2021-05-15 16:06 | 2DMMODE ---
[place] [address] 2 D/M-MODE ECHOCARDIOGRAM Name: NAVDEEP ARVIZU Room: [address] IN [facility]#: [id number] Admission: 05/13/21 Attend Phys: Aristeo Rodriguez Discharge: Date of : 39 Date of Service: 05/15/21 1606 Report #: [id number] THIS REPORT FOR: cc: Prema Kirkpatrick MD, Sarah Beth MD Holkins,Roderick Munoz MD [facility] ~ APPROVED REPORT Study performed: 05/15/2021 10:28:39 EXAM: Comprehensive 2D, Doppler, and color-flow Echocardiogram Patient Location: In-Patient Room #: [facility] Status: routine BSA: 1.65 HR: 77 bpm BP: 104/55 mmHg Rhythm: NSR Other Information Study Quality: Good Indications Dyspnea 2D Dimensions IVSd: 8.88 (7-11mm) LVOT Diam: 19.22 (18-24mm) LVDd: 37.03 mm PWd: 9.29 (7-11mm) Ascending Ao: 31.25 (22-36mm) LVDs: 18.14 (25-40mm) Volumes Left Atrial Volume (Systole) LA ESV Index: 39.50 mL/m2 Aortic Valve AoV Peak Jean Marie.: 3.15 m/s AO Peak Gr.: 39.77 mmHg LVOT Max P.29 mmHg AO Mean Gr.: 20.41 mmHg LVOT Mean P.08 mmHg LVOT Max V: 1.04 m/s AO V2 VTI: 58.97 cm LVOT Mean V: 0.66 m/s JAG (VTI): 1.08 cm2 LVOT V1 VTI: 21.90 cm AI Cedar: 2.20 m/s2 AI PHT: 487.01 [place] [address] 2 D/M-MODE ECHOCARDIOGRAM Name: NAVDEEP ARVIZU Room: [address] IN .R.#: [id number] Admission: 05/13/21 Attend Phys: Aristeo Rodriguez Discharge: Date of : 39 Date of Service: 05/15/21 1606 Report #: [id number] Mitral Valve MV Mean Gr.: 2.85 mmHg E/A Ratio: 0.49 MV Decel. Time: 275.53 ms MV E Max Jean Marie.: 0.56 m/s MV PHT: 79.91 ms MVA (PHT): 2.75 cm2 TDI E/Lateral E': 6.22 E/Medial E': 7.00 Medial E' Jean Marie.: 0.08 m/s Lateral E' Jean Marie.: 0.09 m/s Pulmonary Valve PV Peak Jean Marie.: 1.12 m/s PV Peak Gr.: 5.06 mmHg Tricuspid Valve RAP Estimate: 5.00 mmHg TR Peak Gr.: 54.74 mmHg RVSP: 59.00 mmHg PA Pressure: 59.00 mmHg Left Ventricle The left ventricle is normal size. There is normal LV segmental wall motion. Moderate concentric left ventricular hypertrophy. Left ventricular systolic function is normal. The left ventricular ejection fraction is within the normal range. LVEF is 65%. Grade I - abnormal relaxation pattern. Right Ventricle Right ventricle is mildly dilated. The right ventricular systolic function is normal. Pacemaker lead is present in the right ventricle. Atria Left atrium is mildly dilated. Right atrium is mildly dilated. Aortic Valve Moderate to severe aortic valve sclerosis. Mild aortic regurgitation. Moderate aortic stenosis. Mitral Valve There is mitral annular calcification. Mild mitral regurgitation. No evidence of mitral valve stenosis. Tricuspid Valve The tricuspid valve is normal in structure[place] [address] 2 D/M-MODE ECHOCARDIOGRAM Name: NAVDEEP ARVIZU Room: [address] IN [facility]#: [id number] Admission: 05/13/21 Attend Phys: Aristeo Rodriguez Discharge: Date of : 39 Date of Service: 05/15/21 1606 Report #: [id number] regurgitation. Moderate pulmonary hypertension. Pulmonic Valve The pulmonary valve is normal in structure. Mild pulmonic regurgitation. Great Vessels The aortic root is normal in size. IVC is normal in size and collapses >50% with inspiration. Pericardium There is no pericardial effusion. <Conclusion> The left ventricle is normal size. Moderate concentric left ventricular hypertrophy. Left ventricular systolic function is normal. The left ventricular ejection fraction is within the normal range. LVEF is 65%. Grade I - abnormal relaxation pattern. Right ventricle is mildly dilated. The right ventricular systolic function is normal. Left atrium is mildly dilated. Right atrium is mildly dilated. Moderate to severe aortic valve sclerosis. Mild aortic regurgitation. Moderate aortic stenosis. There is mitral annular calcification. Mild mitral regurgitation. No evidence of mitral valve stenosis. The tricuspid valve is normal in structure. Mild tricuspid regurgitation. Moderate pulmonary hypertension. IVC is normal in size and collapses >50% with inspiration. There is no pericardial effusion. There is normal LV segmental wall motion. <ELECTRONICALLY SIGNED> By: Roderick Bernal MD, FACC 05/15/21 1606 1606 1606 Roderick Bernal MD, FACC /INF
--- NOTE | 2021-05-15 20:15 | NUR ---
PATIENT DAUGHTER CALLING OUT EARLIER APPOX 1740 STATING HER MOTHER NOT FEELING WELL, FEELING SHAKEY. ACCU CHECK OBTAINED WITH RESULT OF 30 GIVEN JUICE X 2 AND ORAL GLUCO-GEL - RECHECKED WITH RESULT OF 29, PATIENT GIVEN 1 AMP OF D-50, THEN NOTED PATIENT CAR SHAGGER ALARMING AFIB-RVR RATE 112 TO 160'S, STAT EKG OBTAINED, CALL PLACED TO DR AMAYA NOTIFIED, ORDERS RECEIVED. CALL PLACED TO CARIOLOGY FOR CONSULT. PATIENT GIVEN IV DIG PER ORDERS. BP 114/58 HR 152 RESPIRATION 18 - HR RANGING FROM 102 TO 170'S THEN BACK TO LOW 100'S. CAR SHAGGER CONTINUES TO TRACK AFIB WITH PERIODS OF RVR. BLOOD SUGAR RECHEKED WITH RESULT OF 302 THEN LATER AFTER FREQUENT CHECKS RESULT STARTING TO DROP 148 TO 158. WILL MONITOR.
--- NOTE | 2021-05-15 20:28 | NUR ---
DETAILED REPORT GIVEN TO DELVIN NÚÑEZ RN FOR CONTINUATION OF CARE.
[2021-05-16] VITALS: BP 141/54
[2021-05-16 01:22] LABS: BE 5.9 mmol/L (-2 to +3); PO2 66.2 mmHg (75.0-100.0); pH 7.401 (7.340-7.450)
[2021-05-16 01:24] LABS: PCO2 51.9 mmHg (35.0-45.0)
[2021-05-16 04:00] VITALS: BP 117/41
[2021-05-16 04:54] LABS: ABSOLUTE LYMPHOCYTES 0.2 thou/uL (0.8-5.3); ABSOLUTE MONOCYTES 0.6 thou/uL (0.0-1.2); ABSOLUTE NEUTROPHILS 11.7 thou/uL (1.6-8.1); BASOPHILS 0.2 %; HEMATOCRIT 22.9 % (37.0-47.0); HEMOGLOBIN 7.3 gm/dL (12.0-15.0); LYMPHOCYTES 1.4 %; MCH 28.3 pg (26.0-34.0); MCV 88.3 fL (80.0-100.0); MPV 8.3 fl. (7.2-11.1); NUCLEATED RBCS 0 /100WBC; PLATELET COUNT* 176 thou/uL (150-400); POLYS 93.4 %; RDW-CV 14.2 % (10.5-14.5); WBC 12.5 thou/uL (4.0-11.0)
[2021-05-16 05:01] LABS: CALCIUM 8.3 mg/dL (8.5-10.1); CREATININE 1.1 mg/dL (0.6-1.3); MAGNESIUM 2.3 mg/dL (1.8-2.4)
[2021-05-16 08:15] VITALS: BP 134/52
[2021-05-16 11:29] VITALS: BP 118/48
--- NOTE | 2021-05-16 12:18 | EKG ---
[place] [address] ELECTROCARDIOGRAM REPORT Name: ROBERT ARVIZUEDDI DEVRIESE Room: [address] ADM IN M.R.#: [id number] Admission: 05/13/21 Attend Phys: Aristeo Rodriguez Discharge: Date of : 39 Date of Service: 05/15/21 1632 Report #: [id number] THIS REPORT FOR: //name// [facility] Test Date: 2021-05-15 Test Time: 16:32:56 Pat Name: NAVDEEP ARVIZU Department: Room: [address] Gender: F Brick Pointer: osmin : 1935 Requested By: Lyly Giang Order Number: [id number] Reading MD: Roni Renae Measurements Intervals [place] Rate: 123 P: MS: QRS: -77 QRSD: 123 T: -13 QT: 339 QTc: 485 Interpretive Statements Atrial fibrillation RBBB and LAFB Compared to ECG 05/03/2021 09:27:51 atrial fibrillation now noted Ventricular-paced complex(es) or rhythm no longer present Electronically Signed On 05-16-2021 12:17:40 CDT by Roni Renae [email or web address] <ELECTRONICALLY SIGNED> By: Roni Renae MD, [facility] 05/16/21 1217 1632 1632 Roni Renae MD, [facility] /EPI
--- NOTE | 2021-05-16 12:54 | NUR ---
ASSUMED CARE OF PT AT 0730. PT A&0X4, DENIES ANY PAIN AT THIS TIME. TRACING AV PACED ON THE COMMERCIAL REAL ESTATE LENDER. RATE IN THE 60'S-70'S. PT ON 50L HEATED HIGH FLOW AT 80% SAT MID 90'S. PT UP WITH MAX ASSIST. DAUGHTER AT BEDSIDE AND UPDATED ON CURRENT PLAN OF CARE. JADE TO DEPENDENT DRAINAGE. CARDIOLOGY HERE TO SEE PT THIS AM AND PT STARTED ON PO AMIO. REFER TO EMAR. PT BLOOD SUGAR HYPO THIS AM-APPLE JUICE WITH SUGAR GIVEN AND BLOOD GLUCOSE MONITORED CLOSELY. AM AND LUNCH INSULIN HELD. PT GOAL FOR TODAY IS TITRATE OXYGEN AND MAINTAIN REGULAR RHYTHM. AM ASSESSMENT CHARTED. MEDICATIONS PER NOV. PT REPOSITIONED EVERY 2 HOURS FOR COMFORT. HOURLY ROUNDING OBSERVED. BED IN LOW POSITION. BED ALARM IN PLACE. FALL PRECAUTIONS IN PLACE. CALL LIGHT WITHIN REACH. WILL CONTINUE PLAN OF CARE.
[2021-05-16 15:37] VITALS: BP 128/44
[2021-05-16 16:00] VITALS: BP 138/46
[2021-05-17] VITALS (7 sets, daily range): BP systolic 109–153; BP diastolic 31–54
[2021-05-17 05:11] LABS: HEMATOCRIT 21.8 % (37.0-47.0); HEMOGLOBIN 7.2 gm/dL (12.0-15.0); MCH 29.1 pg (26.0-34.0); MCV 88.2 fL (80.0-100.0); MPV 9.1 fl. (7.2-11.1); NUCLEATED RBCS 0 /100WBC; PLATELET COUNT* 162 thou/uL (150-400); RBC 2.47 mil/uL (4.20-5.00); RDW-CV 14.1 % (10.5-14.5)
[2021-05-17 05:39] LABS: ALBUMIN 2.2 g/dL (3.4-5.0); CALCIUM 8.4 mg/dL (8.5-10.1); MAGNESIUM 2.3 mg/dL (1.8-2.4); TOTAL BILIRUBIN 0.4 mg/dL (<0.1-1.0); TOTAL PROTEIN 5.6 g/dL (6.4-8.2)
[2021-05-17 05:41] LABS: POTASSIUM 5.1 mmol/L (3.5-5.1)
[2021-05-17 07:53] LABS: ABSOLUTE LYMPHOCYTES 0.1 thou/uL (0.8-5.3); ABSOLUTE NEUTROPHILS 12.9 thou/uL (1.6-8.1); PLATELET ESTIMATE ADEQUATE
--- NOTE | 2021-05-17 14:35 | EKG ---
[place] [address] ELECTROCARDIOGRAM REPORT Name: ARVIZUNAVDEEPEDDI ADEN Room: [address] ADM IN M.R.#: [id number] Admission: 05/13/21 Attend Phys: Aristeo Rodriguez Discharge: Date of : 39 Date of Service: 05/17/21 1014 Report #: [id number] THIS REPORT FOR: //name// [facility] Test Date: 2021-05-17 Test Time: 10:14:09 Pat Name: NAVDEEP ARVIZU Department: Room: [address] Gender: F Inspector Repairer [place]: : 1935 Requested By: Karla Rico Order Number: [id number] Reading MD: Roni Renae Measurements Intervals [place] Rate: 70 P: 29 NH: 151 QRS: -80 QRSD: 126 T: 158 QT: 467 QTc: 504 Interpretive Statements Sinus rhythm Supraventricular bigeminy RBBB and LAFB Compared to ECG 05/15/2021 16:32:56 Atrial fibrillation no longer present Electronically Signed On 05-17-2021 14:35:51 CDT by Roni Renae [email or web address] <ELECTRONICALLY SIGNED> By: Roni Renae MD, [facility] 05/17/21 1435 1014 1014 Roni Renae MD, [facility] /EPI
--- NOTE | 2021-05-17 14:59 | NUR ---
PLAN OF CARE: PHYSICIAN INFORMS OF PLAN FOR THE TO REMAIN INPT THROUGH THE WEEKEND. PLAN REMAINS FOR PT TO RETURN TO INPT ARU WHEN MEDICALLY STABLE. CM WILL REMAIN AVAILABLE TO ASSIST AND FOLLOW NEEDED.
--- NOTE | 2021-05-17 20:53 | NUR ---
Received care of pt at 0730, obtained report from night RN. Pt A&OX4, afebrile, no complaints of pain, but has c/o SOA and requested PRN Ativan. Pt is bedrest, turns on her own with encouragement and minimal help from nursing staff. Lungs are diminished throughout, pt is on the Optiflow at 50L, 80% FiO2. Breaths are not labored but pt does desat very easily with activity. Heart sounds regular, S1S2 heard, generalized edema, non pitting, palpable pulses. Pt able to void on her own. Pt had one large bloody stool overnight per retail shift leader report and a very large, maroon, watery bowel movement around 1130 this morning. Pt later had c/o "feeling full" and nausea. Pt started belching loudly. RN palpated pt's abdomen, abd is soft, tender, with mulitple small hematomas across her abdominal region. Dr. Giang notified and aware, provider at the bedside and assessed pt. New medication orders received, no further interventions at this time with the dark colored stools, will continue to monitor. Pt had 3 medium, watery, dark colored stools at 1830. No tommy blood noted. Hg was checked and 7.1. No blood replacement needed at this time. Will continue to monitor and make changes as necessary.
[2021-05-18] VITALS: BP 123/43
[2021-05-18 04:00] VITALS: BP 120/38
[2021-05-18 05:08] LABS: ABSOLUTE LYMPHOCYTES 0.1 thou/uL (0.8-5.3); ABSOLUTE MONOCYTES 0.1 thou/uL (0.0-1.2); ABSOLUTE NEUTROPHILS 8.9 thou/uL (1.6-8.1); BASOPHILS 0.2 %; MCH 29.2 pg (26.0-34.0); MCHC 33.2 g/dL (28.0-37.0); MCV 87.7 fL (80.0-100.0); MONOCYTES 1.2 %; MPV 9.2 fl. (7.2-11.1); NUCLEATED RBCS 0 /100WBC; PLATELET COUNT* 119 thou/uL (150-400); POLYS 97.6 %; RBC 2.05 mil/uL (4.20-5.00); RDW-CV 13.8 % (10.5-14.5); WBC 9.1 thou/uL (4.0-11.0)
[2021-05-18 05:42] LABS: CALCIUM 8.5 mg/dL (8.5-10.1); CREATININE 0.8 mg/dL (0.6-1.3); MAGNESIUM 2.3 mg/dL (1.8-2.4); POTASSIUM 4.4 mmol/L (3.5-5.1); TOTAL BILIRUBIN 0.3 mg/dL (<0.1-1.0); TOTAL PROTEIN 4.9 g/dL (6.4-8.2)
--- NOTE | 2021-05-18 06:41 | NUR ---
[facility] 6.0 CALLED TO MICHEAL ZHENG , INFORMED TO CALL FAMILY AND IF FAMILY WANT TRANSFUSION, THEN GIVE ONE UNIT. CALL PLACED TO DAUGHTER ANGEL AND INFORMED OF [facility] 6.0 . ANGEL WANT TO TALK WITH OTHER FAMILY AND PT DR AMAYA BEFORE DECISION IS MADE.
[2021-05-18 08:00] VITALS: BP 127/44
[2021-05-18 09:08] LABS: PLATELET ESTIMATE DECREASED
[2021-05-18 09:09] LABS: HYPOCHROMASIA 1+
[2021-05-18 12:00] VITALS: BP 133/44
[2021-05-18 16:00] VITALS: BP 129/72
[2021-05-18 17:25] VITALS: BP 127/34; BP 130/47
[2021-05-19] VITALS: BP 136/52
[2021-05-19 04:01] VITALS: BP 130/51
[2021-05-19 08:00] VITALS: BP 148/41
[2021-05-19 12:00] VITALS: BP 141/44
[2021-05-19 12:27] LABS: ABSOLUTE LYMPHOCYTES 0.2 thou/uL (0.8-5.3); ABSOLUTE MONOCYTES 0.1 thou/uL (0.0-1.2); ABSOLUTE NEUTROPHILS 13.2 thou/uL (1.6-8.1); BASOPHILS 0.2 %; EOSINOPHILS 0.2 %; HEMATOCRIT 23.6 % (37.0-47.0); HEMOGLOBIN 7.8 gm/dL (12.0-15.0); LYMPHOCYTES 1.4 %; MCH 29.9 pg (26.0-34.0); MCHC 33.1 g/dL (28.0-37.0); MCV 90.3 fL (80.0-100.0); MPV 9.6 fl. (7.2-11.1); NUCLEATED RBCS 0 /100WBC; PLATELET COUNT* 104 thou/uL (150-400); POLYS 97.2 %; RBC 2.61 mil/uL (4.20-5.00); RDW-CV 14.6 % (10.5-14.5); WBC 13.6 thou/uL (4.0-11.0)
[2021-05-19 12:29] LABS: CALCIUM 8.5 mg/dL (8.5-10.1); CREATININE 0.9 mg/dL (0.6-1.3); POTASSIUM 4.8 mmol/L (3.5-5.1)
[2021-05-19 16:00] VITALS: BP 148/44
[2021-05-19 19:50] VITALS: BP 149/40
[2021-05-20] VITALS: BP 142/42
--- NOTE | 2021-05-20 03:48 | NUR ---
ASSUMED CARE OF PT AT 1900. PT IS ORIENTED BUT LETHARGIC AND SLEEPING. VSAdiel. GRACE. PT HAS JADE IN PLACE. PT IS ON 15 LITERS O2. PT IS V PACED ON THE TELEMETRY. PT IS RESTING COMFORTABLY IN BED. RESPIRATIONS ARE EVEN AND NONLABORED. WILL CONTINUE TO MONITOR PT.
[2021-05-20 04:00] VITALS: BP 138/50
[2021-05-20 04:15] LABS: HEMATOCRIT 23.5 % (37.0-47.0); HEMOGLOBIN 7.6 gm/dL (12.0-15.0); MCH 28.3 pg (26.0-34.0); MCHC 32.2 g/dL (28.0-37.0); MCV 87.9 fL (80.0-100.0); MPV 9.8 fl. (7.2-11.1); RBC 2.67 mil/uL (4.20-5.00); RDW-CV 14.4 % (10.5-14.5); WBC 14.2 thou/uL (4.0-11.0)
[2021-05-20 04:49] LABS: ALBUMIN 2.4 g/dL (3.4-5.0); CALCIUM 8.7 mg/dL (8.5-10.1); CREATININE 0.7 mg/dL (0.6-1.3); POTASSIUM 4.3 mmol/L (3.5-5.1); TOTAL BILIRUBIN 0.4 mg/dL (<0.1-1.0); TOTAL PROTEIN 5.7 g/dL (6.4-8.2)
--- NOTE | 2021-05-20 07:22 | CON ---
[facility] [address] [place] [address] CONSULTATION Name: NAVDEEP ARVIZU Room: [address] IN M.R.#: [id number] Admission: 05/13/21 Attend Phys: Dino Patel Discharge: Date of : 39 Report #: [id number] THIS REPORT FOR: cc: Prema Kirkpatrick MD, Sarah Beth MD Vardakis, Gregory DO ~ DATE OF CONSULTATION: 05/18/2021 REFERRING PHYSICIAN: Shawn Giang MD REASON FOR CONSULTATION: Rectal bleeding. IMPRESSION: 1. Overt hematochezia, most compatible with lower gastrointestinal bleed -- suspect diverticular bleed. 2. Severe COVID pneumonia with associated high oxygen requirements (the patient is on high flow oxygen at this time with borderline O2 saturation). 3. Anemia secondary to the same plus pneumonia. 4. Underlying chronic obstructive pulmonary disease. 5. Underlying aortic stenosis. 6. Atrial fibrillation, new onset, for which the patient was placed on anticoagulation. 7. Recent pulmonary embolus for which the patient was placed on anticoagulation. RECOMMENDATIONS: 1. I agree with all anticoagulation be discontinued at this time. 2. The patient is a poor candidate at this time for endoscopic evaluation as her oxygen requirements are very high. As such, I would monitor for any evidence for rebleeding. If she rebleeds, we will proceed with a stat tagged red blood cell scan. 3. Consideration for IVC filter may be in order due to the patient's pulmonary embolus. 4. We will need to avoid all anticoagulation at this time, even in the face of her pulmonary embolus and her atrial fibrillation. 5. We will follow the patient expectantly at this time without proceeding with any endoscopic studies. I have discussed plans with the patient as well as her daughter at the bedside and they are agreeable to the same. HISTORY OF PRESENT ILLNESS: This is an 85-year-old white female who is currently hospitalized for severe COVID pneumonia for which she is on high flow oxygen at this time. She has already been treated and doing well from the same, but still has high oxygen requirements. We were consulted to see her because of some overt rectal bleeding, which occurred almost 2 nights ago. She passed quite a bit of bright red blood per rectum. [place] [address] CONSULTATION Name: NAVDEEP ARVIZU Room: [address] IN [facility]#: [id number] Admission: 05/13/21 Attend Phys: Dino Patel Discharge: Date of : 39 Report #: [id number] any problems related to her upper or lower GI tract, although the patient has had bouts of diverticulitis in the past. She has actually been seen by me in the past and underwent upper and lower endoscopy back in 2013 for abdominal pain and diarrhea and was found to have mild erosive gastritis and her colonoscopy revealed diverticular disease within the moderate sigmoid diverticulosis. She has been followed by Dr. Duff and Darrick Stevens NP at [facility] and seems to have everything lined up with regards to her bowels or bowel frequency. She is currently fairly sleepy, but her history is obtained from her daughter at this time. She has not been having a history of any problems referable to her upper or lower GI tract and her bowel frequency has been good. ALLERGIES: CIPRO AND FLAGYL. MEDICATIONS: Upon admission are glimepiride, atorvastatin, amlodipine, aspirin, furosemide, gabapentin, hydralazine, levothyroxine, lisinopril, lorazepam, omeprazole, ondansetron, a probiotic, pioglitazone and tramadol. CURRENT MEDICATIONS: At this time include methylprednisolone 40 mg twice daily, pantoprazole 40 mg twice daily, lorazepam, levalbuterol inhalers, amiodarone, insulin, midodrine, montelukast, levofloxacin, vitamin D, ascorbic acid, zinc, fluticasone nasal spray, triamcinolone topical, atorvastatin, aspirin, lorazepam and Xarelto, but since discontinued. PAST MEDICAL HISTORY: Remarkable for hypertension, diabetes, aortic stenosis. She has history of peripheral neuropathy, hypothyroidism, anxiety, depression. She has a history of chronic anemia. She had previous cholecystectomy, neck surgery as well. SOCIAL HISTORY: The patient does not smoke or drink. FAMILY HISTORY: Negative. PHYSICAL EXAMINATION: GENERAL: Revealed an ill-appearing 85-year-old white female who is in no distress. Her oxygen saturation is borderline at 91 on high flow oxygen. CARDIOVASCULAR: Her cardiopulmonary examination revealed atrial fibrillation with controlled rate. She has aortic stenosis. LUNGS: Reveal diminished breath sounds and wheezes throughout. ABDOMEN: Soft and nontender. No rebound or guarding noted. LABORATORY DATA: From today revealed white count of 9.1, hemoglobin 6.0, platelet count 119,000, MCV is 87.7 and RDW is 13.8. Her sodium is 135, potassium 4.4, chloride 100, bicarbonate is 33. Her BUN is 50, creatinine 0.84, [place] [address] CONSULTATION Name: NAVDEEP ARVIZU Room[facility] [address] [id number] Admission: 05/13/21 Attend Phys: Dino Patel Discharge: Date of : 39 Report #: [id number] GFR 69. Total bilirubin 0.3, alkaline phosphatase 136, AST 24, ALT 47, albumin is 2.0. By comparison, her hemoglobin on 04/10, her white count was 7.9, hemoglobin 10.7, platelet count 331,000. At that time, her BUN and creatinine were 23 and 1.0 respectively. Liver function tests were all normal. CT scan of the abdomen and pelvis performed on 05/15 was reviewed and revealed a normal liver and spleen. Gallbladder was removed. She does have a low density cystic lesion at the level of the duodenum, which may represent a duodenal diverticulum versus a pancreatic cystic mass. There appeared to be mild intrahepatic ductal dilation. There is fluid noted within the colon without evidence for bowel wall thickening. She does have diverticular disease. DISCUSSION: At the present time, the patient has had some bleeding. She is not the best candidate for any endoscopic studies. We will hold off on anything at this time unless she has any overt hematemesis or hematochezia. If so, we will proceed with upper endoscopy if necessary and a tagged red blood cell scan if there is overt bleeding without evidence for hematemesis. We will continue to follow the patient while in the hospital. <ELECTRONICALLY SIGNED> By: Alex Gardiner DO 05/20/21 0722 1132 Lizzie Gardiner DO /kirsten
[2021-05-20 08:15] VITALS: BP 140/96
[2021-05-20 11:30] VITALS: BP 153/41
--- NOTE | 2021-05-20 13:18 | EKG ---
[place] [address] ELECTROCARDIOGRAM REPORT Name: NAVDEEP ARVIZU Room: [address] IN [facility].#: [id number] Admission: 05/13/21 Attend Phys: Aristeo Rodriguez Discharge: Date of : 39 Date of Service: 05/20/21 1311 Report #: [id number] THIS REPORT FOR: //name// [facility] [place] Test Date: 2021-05-20 Test Time: 13:11:23 Pat Name: NAVDEEP ARVIZU Department: Room: [facility] Gender: F Geography Head: KF : 1935 Requested By: Roni Renae Order Number: [id number] Reading MD: Roni Renae Measurements Intervals [place] Rate: 62 P: 6 OR: 160 QRS: -69 QRSD: 125 T: 138 QT: 469 QTc: 477 Interpretive Statements Sinus rhythm RBBB and LAFB Abnormal T, consider ischemia, lateral leads Compared to ECG 05/17/2021 10:14:09 Atrial premature complex(es) no longer present Electronically Signed On 05-20-2021 13:18:22 CDT by Roni Renae [email or web address] <ELECTRONICALLY SIGNED> By: Roni Renae MD, [facility] 05/20/21 1318 10 10 Roni Renae MD, [facility] /EPI
--- NOTE | 2021-05-20 14:43 | NUR ---
PLAN OF CARE: PHYSICIAN INFORMS OF PLAN TO RE-CONSULT INPT ARU AND PT/OT FOR EVALS. PT NOW ON 6L O2 AND BIPAP PRN. CM WILL REMAIN AVAILABLE TO ASSIST AND FOLLOW NEEDED. CM WILL REMAIN AVAILABLE TO ASSIST AND FOLLOW NEEDED.
[2021-05-20 16:00] VITALS: BP 137/36
--- NOTE | 2021-05-20 18:01 | NUR ---
PATIENT HAS REMAINED ORIENTED X4 YET LETHARGIC AND UNMOTIVATED THIS SHIFT. PATIENT ONLY AGREEING TO TAKE "NECESSARY MEDICATIONS" AND REFUSES ALL OTHERS. NO INSULIN GIVEN THIS SHIFT, PATIENT'S GLUCOSE WITH MORNING LABS WAS 44 AND PATIENT HAS BEEN REFUSING TO EAT. SHE DID HOWEVER REQUEST AN ENSURE AND DID TAKE A FEW DRINKS WHEN PROVIDED. MULTIPLE BRUISING NOTED ON PATIENT'S BODY. URINARY CATHETER IN PLACE TO DD, YELLOW URINE IN COLLECTION BAG. PATIENT CURRENTLY ON HEATED HIGH FLOW CANNULA DUE TO SATURATIONS LOWERING TO AROUND 85-87% ON 15L NASAL CANNULA EARLIER THIS EVENING. PATIENT ALSO REQUESTING TO SEE DAUGHTERS AND THEY ARE BOTH AT BEDSIDE AT THIS TIME. (PERMISSION GIVEN BY [employer] SURVEY WORKER). NO DIARRHEA NOTED THIS SHIFT. CALL LIGHT AND FREQUENTLY USED ITEMS WITHIN REACH.
[2021-05-20 19:50] VITALS: BP 143/47
[2021-05-21 00:14] VITALS: BP 127/45
[2021-05-21 04:38] VITALS: BP 120/51
--- NOTE | 2021-05-21 07:37 | NUR ---
ASSUMED CARE OF PT 05/20/21 AT APPROX 1915. LISPRO DOSE AND FULL DOSE GLARGINE REFUSED BY PT'S DAUGHTER (EDUCATION GIVEN). AT APPROX 2038 PHYSICIAN CONTACT FOR SALINE NASAL SPRAY AND INSULINE DOSE TO BE ADMINISTERED. ORDER GIVEN TO ADMINISTER 13 UNITS OF THE 25 UNITS GLARGINE ON ORDER, GIVEN ORDERED (PT'S DAUGHTERS IN AGREEMENT). PT V-PACED ON TELE MONITOR. ATIVAN IV REQUESTED AND GIVEN ORDERED. PT ON HEATED HF NC. URINARY CATHETER IN PLACE. REPOSITIONED Q2H. REPORT GIVEN AND CARE TRANSFERED TO [facility] NURSE AT APPROX 0720.
[2021-05-21 12:00] VITALS: BP 113/22
[2021-05-21 13:51] LABS: ALBUMIN 2.3 g/dL (3.4-5.0); CALCIUM 8.3 mg/dL (8.5-10.1); CREATININE 0.9 mg/dL (0.6-1.3); POTASSIUM 4.5 mmol/L (3.5-5.1); TOTAL BILIRUBIN 0.3 mg/dL (<0.1-1.0); TOTAL PROTEIN 5.4 g/dL (6.4-8.2)
--- NOTE | 2021-05-21 15:01 | NUR ---
PLAN OF CARE: PHYSICIAN INFORMS THAT PT IS NOT MEDICALLY STABLE TO D/C TO INPT ARU TODAY PT HAS INCREASED OXYGEN NEEDS TODAY. PT REQUIRING 30L HEATED HF O2 AT THIS TIME. CM D/C PLANNING NEEDS ARE TBD AT THIS TIME. CM WILL REMAIN AVAILABLE TO ASSIST AND FOLLOW NEEDED.
[2021-05-21 16:00] VITALS: BP 126/37
[2021-05-21 20:00] VITALS: BP 151/45
[2021-05-22 00:43] VITALS: BP 153/41
[2021-05-22 04:22] VITALS: BP 124/39
[2021-05-22 05:21] LABS: MCH 29.8 pg (26.0-34.0); MCHC 33.4 g/dL (28.0-37.0); MCV 89.1 fL (80.0-100.0); MPV 10.6 fl. (7.2-11.1); NUCLEATED RBCS 0 /100WBC; PLATELET COUNT* 66 thou/uL (150-400); RBC 2.24 mil/uL (4.20-5.00); RDW-CV 14.8 % (10.5-14.5)
[2021-05-22 05:39] LABS: ALBUMIN 2.3 g/dL (3.4-5.0); CREATININE 0.8 mg/dL (0.6-1.3); MAGNESIUM 2.4 mg/dL (1.8-2.4); POTASSIUM 4.8 mmol/L (3.5-5.1); TOTAL BILIRUBIN 0.4 mg/dL (<0.1-1.0); TOTAL PROTEIN 5.2 g/dL (6.4-8.2)
[2021-05-22 06:02] LABS: HEMOGLOBIN 6.7 gm/dL (12.0-15.0)
[2021-05-22 06:29] LABS: METAMYELOCYTES 1 %
[2021-05-22 06:30] LABS: PLATELET ESTIMATE DECREASED
--- NOTE | 2021-05-22 07:31 | NUR ---
PT HBG 6.7 INFORMED DAUGHTER AT BEDSIDE AND SHE WILL CALL ANGEL BHATTI OTHER [place] AND TO TALK WITH DR AMAYA. PT RECIEVED MORPHINE FOR AIR HUNGER 1X THIS SHIFT AND ATIVAN ONCE THIS SHIFT. SAT DROPS TO 76 % IF PT REMOVED HF 02. WILL CONITINUE WITH CURRENT PLAN OF CARE AND WILL REPORT CHANGES
[2021-05-22 08:00] VITALS: BP 126/47
[2021-05-22 11:00] VITALS: BP 152/48
[2021-05-22 15:26] VITALS: BP 137/44
--- NOTE | 2021-05-22 18:45 | NUR ---
PATIENT RESTING IN BED, DAUGHTER AT BEDSIDE, INVOLVED WITH CARES. TOLERATING 25L HEATED HIGH FLOW, FIO2 AT 100%. JADE SECURELY INPLACE TO DEPENDENT DRAINAGE. BARRIER CREAM APPLIED TO BOTTOM. PICC TO RIGHT UPPER ARM, DOUBLE LUMEN, PATENT. RIGHT ARM, TOES TO LEFT AND RIGHT FEET WITH BRUISING. LUNG SOUNDS DIMINISHED. BLOOD SUGARS MONITORED, INSULIN REFUSED BY DAUGHTER. PACEMAKER TO RIGHT UPPER CHEST. AV PACED. BED IN LOW/LOCKED POSITION. CALL LIGHT WITHIN REACH. NO QUESTIONS OR CONCERNS VOICED.
[2021-05-22 20:30] VITALS: BP 123/28
[2021-05-23] VITALS: BP 167/61
[2021-05-23 04:00] VITALS: BP 123/42
--- NOTE | 2021-05-23 12:36 | NUR ---
0800: FAMILY HAS REQUESTED NO ASSESSMENT, VITAL SIGNS, MEDICATIONS OR VITAL SIGNS ON PATIENT. PATIENT HAS BEEN SWITCHED TO COMFORT CARE. PATIENT ON 2L OXYGEN, NASAL CANNULA. LORAZEPAM 2MG AND MORPHINE 2MG GIVEN. WILL CONTINUE TO MONITOR. 0921: THIS RN REQUESTED FROM FAMILY MEMBER TO COME TO PATIENT'S BEDSIDE. THIS RN AND CHARGE NURSE TO BEDSIDE. PATIENT ASSESSED FOR SIGNS OF LIFE. TIME OFF AT 0921 WITNESSED BY THIS RN AND CHARGE NURSESANTOS. DR. AMAYA AND DR. SOTO NOTIFIED. DAUGHTERS AT BEDSIDE. WILL REMAIN AVAILABLE TO FAMILY. REVENUE DIRECTOR NOTIFIED. 0951: [employer] NOTIFIED.
--- NOTE | 2021-05-23 12:46 | NUR ---
THIS RN AND ZOOLOGY TECHNICAL OFFICER INTO PATIENT'S ROOM. PICC TO RIGHT UPPER ARM DC'D. JADE REMOVED, TUBING INTACT. PATIENT PLACED IN BODY BAG. [facility] CALLED AT THIS TIME. SECURITY TO ROOM WITH STRETCHER. BODY PLACED ON STRETCHER. COVERED PLACED OVER BODY. SECURITY WITH BODY TO [facility].
== END 2021-05-23 09:21 | DRG 177 ==
LOC: M.2W 16:14
PROVIDERS: Family Medicine; Internal Medicine; Internal Medicine Critical Care Medicine; Internal Medicine Gastroenterology; ADMIT Internal Medicine; ATTEND Internal Medicine
PROC: 5A0935A Assistance with Respiratory Ventilation, Less than 24 Consecutive Hours, High Flow/Velocity Cannula (ICD-10-PCS; principal; 2021-05-13)
PROC: 5A0945A Assistance with Respiratory Ventilation, 24-96 Consecutive Hours, High Flow/Velocity Cannula (ICD-10-PCS; 2021-05-14)
PROC: 5A0935A Assistance with Respiratory Ventilation, Less than 24 Consecutive Hours, High Flow/Velocity Cannula (ICD-10-PCS; 2021-05-17)
PROC: 30233N1 Transfusion of Nonautologous Red Blood Cells into Peripheral Vein, Percutaneous Approach (ICD-10-PCS; 2021-05-18)
PROC: 5A0935A Assistance with Respiratory Ventilation, Less than 24 Consecutive Hours, High Flow/Velocity Cannula (ICD-10-PCS; 2021-05-19)
PROC: 5A0945A Assistance with Respiratory Ventilation, 24-96 Consecutive Hours, High Flow/Velocity Cannula (ICD-10-PCS; 2021-05-20)
PROC: B548ZZA Ultrasonography of Superior Vena Cava, Guidance (ICD-10-PCS; 2021-05-22)
PROC: 02HV33Z Insertion of Infusion Device into Superior Vena Cava, Percutaneous Approach (ICD-10-PCS; 2021-05-22)
PROC: B5181ZA Fluoroscopy of Superior Vena Cava using Low Osmolar Contrast, Guidance (ICD-10-PCS; 2021-05-22)
DX: U07.1 COVID-19 (principal); J69.0 Pneumonitis due to inhalation of food and vomit; J12.82 Pneumonia due to coronavirus disease 2019; J80 Acute respiratory distress syndrome; I26.99 Other pulmonary embolism without acute cor pulmonale; K92.2 Gastrointestinal hemorrhage, unspecified; J44.0 Chronic obstructive pulmonary disease with (acute) lower respiratory infection; J44.1 Chronic obstructive pulmonary disease with (acute) exacerbation; D64.9 Anemia, unspecified; I10 Essential (primary) hypertension; E11.42 Type 2 diabetes mellitus with diabetic polyneuropathy; E03.9 Hypothyroidism, unspecified; F41.9 Anxiety disorder, unspecified; F32.9 Major depressive disorder, single episode, unspecified; I35.0 Nonrheumatic aortic (valve) stenosis; E11.65 Type 2 diabetes mellitus with hyperglycemia; E87.70 Fluid overload, unspecified; I48.0 Paroxysmal atrial fibrillation; Z88.1 Allergy status to other antibiotic agents; Z88.8 Allergy status to other drugs, medicaments and biological substances; Z90.49 Acquired absence of other specified parts of digestive tract; Z87.891 Personal history of nicotine dependence; Z95.0 Presence of cardiac pacemaker; Z66 Do not resuscitate; Z51.5 Encounter for palliative care